=== PATIENT | female | born 1975 | race Caucasian/White ===

== ENCOUNTER 2017-10-28 19:41 | Emergency (ER) | payer BC, MEDICAID | END 2017-10-28 22:10 | disposition left against medical advice (07) | LOC: M ED 22:10 | DX: Z53.29 Procedure and treatment not carried out because of patient's decision for other reasons (principal) ==

== ENCOUNTER → 2017-10-29 | Outpatient (REF) | payer BC ==
[2017-10-29 20:40] LABS: APPEARANCE, URINE HAZY (CLEAR); BACTERIA, URINE AUTO 1+ (NEGATIVE); BILIRUBIN, URINE AUTO NEGATIVE (NEGATIVE); BLOOD, URINE BLOOD 2+ (NEGATIVE); COLOR, URINE YELLOW (YELLOW); GLUCOSE, URINE (UA) AUTO NEGATIVE (NEGATIVE); KETONE, URINE AUTO NEGATIVE (NEGATIVE); LEUKOCYTE ESTERASE, URINE AUTO NEGATIVE (NEGATIVE); MUCUS, URINE SMALL (NEGATIVE); NITRITE, URINE AUTO NEGATIVE (NEGATIVE); PROTEIN, URINE AUTO NEGATIVE (NEGATIVE); RBC, URINE AUTO 1 /HPF (0-3); SPECIFIC GRAVITY URINE AUTO 1.012 (1.002-1.035); SQUAMOUS EPITHELIAL CELL UR AU 1 /HPF (0-6); WBC, URINE AUTO 1 /HPF (0-3)
== END ==
LOC: M LAB REF 09:46
DX: N39.0 Urinary tract infection, site not specified (principal)
CPT/HCPCS: 81001

== ENCOUNTER → 2017-12-28 | Outpatient (REF) | payer BC ==
[2017-12-28 17:15] LABS: INFLUENZA A AMPLIFICATION NEGATIVE (NEGATIVE); INFLUENZA B AMPLIFICATION NEGATIVE (NEGATIVE)
== END ==
LOC: M LAB REF 16:26
DX: J11.1 Influenza due to unidentified influenza virus with other respiratory manifestations (principal)
CPT/HCPCS: 87502

== ENCOUNTER 2018-08-01 11:41 | Emergency (ER) | payer SELFPAY, BC ==
[2018-08-01] MEDS: BACLOFEN 10 MG TAB PO (15:13)
[2018-08-01] MEDS: PERCOCET 5MG/325MG TAB PO (15:13)
== END 2018-08-01 18:15 | disposition home or self-care (01) ==
LOC: M ED 11:41
DX: M50.221 Other cervical disc displacement at C4-C5 level (principal); M50.222 Other cervical disc displacement at C5-C6 level; M50.223 Other cervical disc displacement at C6-C7 level; M54.12 Radiculopathy, cervical region; R51 Headache; F41.9 Anxiety disorder, unspecified; F17.210 Nicotine dependence, cigarettes, uncomplicated
CPT/HCPCS: 72141

== ENCOUNTER → 2020-09-06 | Outpatient (REF) | payer OTHER ==
[~2020-09-06] MED LIST: BACL10TA2 PO; PEPC1TAB5; PERC5TAB12 PO; PRIL20TA2 PO; SERT-138
[2020-09-06 16:50] LABS: APPEARANCE, URINE MANUAL CLEAR (CLEAR); COLOR, URINE MANUAL COLORLESS (YELLOW)
[2020-09-06 16:52] LABS: BILIRUBIN, URINE MANUAL NEGATIVE (NEGATIVE); BLOOD URINE MANUAL POSITIVE (NEGATIVE); GLUCOSE, URINE (UA) MANUAL NEGATIVE (NEGATIVE); KETONE, URINE MANUAL NEGATIVE (NEGATIVE); LEUKOCYTE ESTERASE, URINE MAN TRACE (NEGATIVE); NITRITE, URINE MANUAL NEGATIVE (NEGATIVE); PROTEIN, URINE MANUAL NEGATIVE (NEGATIVE); SPECIFIC GRAVITY,URINE MANUAL 1.005 (1.002-1.035); UROBILINOGEN, URINE MANUAL NORMAL (NORMAL)
[2020-09-06 19:31] LABS: BACTERIA, URINE LARGE AMOUNT; RBC, URINE 20-30 /hpf (0-3); SQUAMOUS EPITHELIAL CELL URINE LARGE AMOUNT /hpf (SMALL AMT)
[2020-09-06 19:33] LABS: HYALINE CAST, URINE NONE SEEN /lpf (0-1); YEAST, URINE SMALL AMOUNT
== END ==
LOC: M LAB REF 16:03
PROVIDERS: ATTEND Obstetrics & Gynecology
DX: N39.0 Urinary tract infection, site not specified (principal)

== ENCOUNTER 2020-12-31 10:13 | Emergency (ER) | payer OTHER ==
[~2020-12-31] VITALS: Ht 157.5 cm; Wt 96.4 kg
[2020-12-31] MEDS ORDERED: SERT25TA21 (10:27)
[2020-12-31] MEDS ORDERED: ERYT5OIN25 (10:27)
[2020-12-31] MEDS ORDERED: GABA-282 (10:27)
[2020-12-31] MEDS ORDERED: NS 1,000 ML IV ONE (10:50)
[2020-12-31] MEDS ORDERED: ACETAMINOPHEN 500 MG TAB PO ONE (10:50)
[2020-12-31 11:40] VITALS: O2SAT 100
[2020-12-31 11:43] LABS: BASO % 0.2 % (0.0-1.0); EOS # 0.2 10^3/uL (0.0-0.5); EOS % 1.6 % (0.0-3.0); HEMATOCRIT 32.3 % (36.0-47.0); HEMOGLOBIN 11.3 g/dl (12.0-15.5); LYMPH # 1.9 10^3/uL (1.5-5.0); LYMPH % 20.7 % (24.0-44.0); MEAN CORPUSCULAR HEMOGLOBIN 40.4 pg (27.0-33.0); MONO # 0.5 10^3/uL (0.0-0.8); MONO % 5.9 % (2.0-8.0); NEUTROPHILS # 6.5 10^3/uL (1.5-8.5); NEUTROPHILS % 70.8 % (36.0-66.0); PLATELET COUNT, AUTOMATED 318 10^3/uL (150-450); WHITE BLOOD COUNT 9.2 10^3/uL (4.0-10.0)
--- NOTE | 2020-12-31 12:07 | ECGEPIP ---
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
[2020-12-31 12:15] LABS: HCG, SERUM QUALITATIVE NEGATIVE (NEGATIVE)
[2020-12-31 12:16] LABS: MEAN CORPUSCULAR VOLUME 115.4 fl (80.0-96.0)
[2020-12-31 12:19] LABS: PLATELET ESTIMATE NORMAL (NORMAL)
[2020-12-31 12:20] LABS: HYPOCHROMASIA 1+
[2020-12-31 12:33] LABS: ALBUMIN 3.3 GM/DL (3.2-5.2); ALT/SGPT 68 U/L (12-78); AMYLASE 15 U/L (25-115); BILIRUBIN,DIRECT 0.1 MG/DL (0.0-0.2); BILIRUBIN,TOTAL 0.6 MG/DL (0.2-1.0); BLOOD UREA NITROGEN 4 MG/DL (7-18); CALCIUM LEVEL 8.8 MG/DL (8.5-10.1); CARBON DIOXIDE LEVEL 26 MEQ/L (21-32); CHLORIDE LEVEL 101 MEQ/L (98-107); CK-MB VALUE MASS 13.1 NG/ML (<3.6); CPK CREATINE PHOSPHOKINASE 2115 U/L (26-192); FREE T4 1.18 NG/DL (0.76-1.46); GLOMERULAR FILTRATION RATE > 60.0 (>58); GLUCOSE, FASTING 83 MG/DL (70-100); LIPASE 35 U/L (73-393); MAGNESIUM LEVEL 2.1 MG/DL (1.8-2.4); MB/CK RELATIVE INDEX 0.62 (< OR =4); POTASSIUM SERUM 2.8 MEQ/L (3.5-5.1); SODIUM LEVEL 135 MEQ/L (136-145); TOTAL PROTEIN 6.4 GM/DL (6.4-8.2); TROPONIN I 0.02 NG/ML (< 0.10)
[2020-12-31] MEDS ORDERED: KCL 10MEQ/100ML SWI (KRUN) 10 MEQ in IV 1 EA IV ONE (12:35)
--- NOTE | 2020-12-31 13:16 | REP ---
INDICATION: Abdominal Pain COMPARISON: None. TECHNIQUE: Upright view of the chest with supine and upright views of the abdomen and pelvis. FINDINGS: Frontal upright view of the chest demonstrates no acute cardiopulmonary process or free air below the diaphragm to suspect pneumoperitoneum. Supine and upright views of the abdomen and pelvis demonstrate nonspecific bowel gas pattern without obstruction or perforation. Prior cholecystectomy. No organomegaly. No abnormal calcifications. Skeletal structures normal for age. IMPRESSION: Nonspecific bowel gas pattern. <Electronically signed by Martin Hunter > 12/31/20 [id number]
[2020-12-31] MEDS ORDERED: POTASSIUM CHLORIDE 10 MEQ SR TABLET PO ONE (14:25)
[2020-12-31 14:31] LABS: FERRITIN 65 NG/ML (8-252); FOLATE 4.1 NG/ML (>5.4); IRON (FE) 106 UG/DL (50-170); TOTAL IRON BINDING CAPACITY 221 UG/DL (250-450); VITAMIN B12 LEVEL 213 PG/ML (247-911)
[2020-12-31] MEDS ORDERED: GI COCKTAIL 50ML BTL(HYOSCYAMINE/MAALOX/LIDOCAINE VISCOUS)(1:3:1) PO ONE (15:05)
[2020-12-31] MEDS ORDERED: CYANOCOBALAMIN 500 MCG TAB PO STA (15:27)
[2020-12-31 16:17] LABS: AMPHETAMINES LEVEL URINE NEGATIVE (NEGATIVE); BARBITURATES URINE NEGATIVE (NEGATIVE); BENZODIAZEPINES URINE NEGATIVE (NEGATIVE); CANNABINOIDS URINE NEGATIVE (NEGATIVE); COCAINE METABOLITE URINE NEGATIVE (NEGATIVE); METHADONE URINE NEGATIVE (NEGATIVE); OPIATES URINE NEGATIVE (NEGATIVE); PHENCYCLIDINE URINE NEGATIVE (NEGATIVE)
[2020-12-31] MEDS ORDERED: OMEP40CA97 PO (16:17)
[2020-12-31 16:26] VITALS: BP 123/79
== END 2020-12-31 16:45 | disposition home or self-care (01) ==
LOC: M ED 10:13
DX: D64.9 Anemia, unspecified (principal); E87.6 Hypokalemia; E53.9 Vitamin B deficiency, unspecified; R79.89 Other specified abnormal findings of blood chemistry; K21.9 Gastro-esophageal reflux disease without esophagitis; F41.9 Anxiety disorder, unspecified; Z79.899 Other long term (current) drug therapy
CPT/HCPCS: 74021; 80048; 80076; 80307; 81001; 82150; 82550; 82553; 82607; 82728; 82746; 83550; 83690; 83735; 84439; 84443; 84703; 85025; 85379; 87804; 87880; 93005; 96361; 96365; 99285; U0002

== ENCOUNTER → 2021-03-03 | Outpatient (REF) | payer OTHER ==
[~2021-03-03] MED LIST changes: +ERYT5OIN25; +GABA-282; +OMEP40CA97 PO; +SERT25TA21
[2021-03-03 12:03] LABS: BASO % 0.3 % (0.0-1.0); EOS # 0.3 10^3/uL (0.0-0.5); EOS % 2.5 % (0.0-3.0); HEMOGLOBIN 12.4 g/dl (12.0-15.5); LYMPH # 3.3 10^3/uL (1.5-5.0); LYMPH % 31.4 % (24.0-44.0); MEAN CORPUSCULAR HEMOGLOBIN 34.6 pg (27.0-33.0); MEAN CORPUSCULAR HGB CONC 32.6 g/dl (32.0-36.5); MEAN CORPUSCULAR VOLUME 106.1 fl (80.0-96.0); MONO # 0.7 10^3/uL (0.0-0.8); MONO % 6.7 % (2.0-8.0); NEUTROPHILS # 6.1 10^3/uL (1.5-8.5); NEUTROPHILS % 58.3 % (36.0-66.0); PLATELET COUNT, AUTOMATED 262 10^3/uL (150-450); RED BLOOD COUNT 3.58 10^6/uL (4.00-5.40); WHITE BLOOD COUNT 10.5 10^3/uL (4.0-10.0)
[2021-03-03 12:27] LABS: HEMOGLOBIN A1c 4.3 %
[2021-03-03 13:01] LABS: ALT/SGPT 17 U/L (12-78); BILIRUBIN,TOTAL 0.4 MG/DL (0.2-1.0); BLOOD UREA NITROGEN 5 MG/DL (7-18); CALCIUM LEVEL 9.1 MG/DL (8.5-10.1); CARBON DIOXIDE LEVEL 26 MEQ/L (21-32); CHLORIDE LEVEL 106 MEQ/L (98-107); CHOLESTEROL LEVEL 204 MG/DL (<200); CHOLESTEROL RISK RATIO 3.777 (<5); CREATININE FOR GFR 0.64 MG/DL (0.55-1.30); FERRITIN 34 NG/ML (8-252); FOLATE 3.1 NG/ML; GLOMERULAR FILTRATION RATE > 60.0 (>58); GLUCOSE, FASTING 82 MG/DL (70-100); HDL CHOLESTEROL 54 MG/DL (>40); IRON (FE) 85 UG/DL (50-170); LDL CHOLESTEROL 121 MG/DL (<100); NON-HDL-C 150 MG/DL; PERCENT SATURATION 33.9 % (13.2-45.0); POTASSIUM SERUM 3.6 MEQ/L (3.5-5.1); SODIUM LEVEL 141 MEQ/L (136-145); TOTAL 25(OH) VITAMIN D 7.1 NG/ML (30.0-100.0); TOTAL IRON BINDING CAPACITY 251 UG/DL (250-450); TOTAL PROTEIN 6.1 GM/DL (6.4-8.2); TRIGLYCERIDES LEVEL 143 MG/DL (<150); VITAMIN B12 LEVEL 500 PG/ML
== END ==
LOC: M LAB REF 11:39
PROVIDERS: ATTEND Nurse Practitioner Family
DX: G89.29 Other chronic pain (principal); F41.9 Anxiety disorder, unspecified; R20.2 Paresthesia of skin; E66.9 Obesity, unspecified

== ENCOUNTER → 2021-05-10 | Outpatient (CLI) | payer OTHER ==
[~2021-05-10] MED LIST changes: +OMEP40CA4 PO; -OMEP40CA97 PO
[2021-05-10 16:11] LABS: RHEUMATOID FACTOR QUANT < 10.0 IU/ML (<15.0); TOTAL PROTEIN 6.1 GM/DL (6.4-8.2)
[2021-05-12 09:44] LABS: VITAMIN B12 LEVEL 282 PG/ML
[2021-05-12 09:45] LABS: FOLATE 3.6 NG/ML
[2021-05-13 11:10] LABS: ALBUMIN % 55.8 % (55.8-66.1); ALPHA-1-GLOBULIN % 5.5 % (2.9-4.9); ALPHA-1-GLOBULINS 0.34 GM/DL (0.17-0.41); ALPHA-2-GLOBULINS 0.77 GM/DL (0.42-0.99); ALPHA-2-GLOBULINS % 12.6 % (7.1-11.8); BETA-1-GLOBULINS 0.33 GM/DL (0.28-0.60); BETA-1-GLOBULINS % 5.4 % (4.7-7.2); BETA-2-GLOBULINS 0.39 GM/DL (0.19-0.55); BETA-2-GLOBULINS % 6.4 % (3.2-6.5); GAMMA GLOBULIN % 14.3 % (11.1-18.8); GAMMA GLOBULINS 0.87 GM/DL (0.65-1.58)
== END ==
LOC: M LAB 13:49
PROVIDERS: ATTEND Psychiatry & Neurology Neurology
DX: G62.9 Polyneuropathy, unspecified (principal); R53.1 Weakness

== ENCOUNTER → 2021-05-10 | Outpatient (CLI) | payer OTHER ==
--- NOTE | 2021-05-11 00:06 | REPVR ---
PROCEDURE INFORMATION: Exam: MR Lumbar Spine Without Contrast Exam date and time: 05/10/2021 2:43 PM Age: 46 years old Clinical indication: Other: Lumbar radiculopathy; Additional info: Lumbar radiculopathy / cervical radiculopathy / labs 2nd TECHNIQUE: Imaging protocol: Multiplanar magnetic resonance images of the lumbar spine without intravenous contrast. COMPARISON: CR Abdomen,Flat Upright,PA CHEST 12/31/2020 12:45 PM FINDINGS: Vertebral body heights are maintained. No abnormal marrow signal. No cord compression. No abnormal cord signal. Conus medullaris terminates at the L1 level. Disc space heights are preserved. Multilevel mild Schmorl's node phenomena. No significant areas of canal or foraminal narrowing. Paravertebral soft tissues are unremarkable. IMPRESSION: No acute findings in the lumbar spine. Electronically signed by: Mark Mark On 05/11/2021 00:06:13 AM
--- NOTE | 2021-05-11 00:11 | REPVR ---
PROCEDURE INFORMATION: Exam: MR Cervical Spine Without Contrast Exam date and time: 05/10/2021 2:43 PM Age: 46 years old Clinical indication: Other: Cervical radiculopathy; Additional info: Lumbar radiculopathy / cervical radiculopathy / labs 2nd TECHNIQUE: Imaging protocol: Multiplanar magnetic resonance images of the cervical spine without contrast. COMPARISON: MRI-Spine,Cervical without con 08/01/2018 3:46 PM FINDINGS: Large T2 hyperintense midline cystic mass measuring approximately 3.2 x 1.8 x 1 cm inferior to the base of the tongue and extending anterior to the larynx. Cervical vertebral body heights are intact. Straightening of the cervical lordosis. The dens is intact. No abnormal marrow signal. No cord compression, expansion, or abnormal cord signal. Visualized structures of the posterior fossa are unremarkable. Soft tissues are unremarkable. C2-C3: No significant canal or foraminal narrowing. C3-C4: Small posterior disc bulge causing mild canal narrowing and mild left foraminal narrowing. C4-C5: Left paracentral disc protrusion and uncovertebral spurring cause mild canal narrowing and moderate left foraminal narrowing. C5-C6: Right paracentral disc protrusion causing focal moderate canal narrowing. Along with uncovertebral spurring there is mild left foraminal narrowing. C6-C7: Posterior disc protrusion and uncovertebral spurring cause mild canal narrowing with moderate left and mild right foraminal narrowing. C7-T1: No significant canal or foraminal narrowing. IMPRESSION: 1. Multilevel spondylotic changes of the cervical spine, as detailed above. 2. Large T2 hyperintense midline cystic mass measuring approximately 3.2 x 1.8 x 1 cm inferior to the base of the tongue and extending anterior to the larynx. 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 Recommend ENT surgical consultation and further evaluation with neck ultrasound. Electronically signed by: Mark Mark On 05/11/2021 00:11:01 AM
== END ==
LOC: M RAD 13:37 → M LAB 13:37
PROVIDERS: ATTEND Pain Medicine Interventional Pain Medicine
DX: M54.12 Radiculopathy, cervical region (principal); M54.16 Radiculopathy, lumbar region; G62.9 Polyneuropathy, unspecified; R53.1 Weakness

== ENCOUNTER → 2021-05-28 | Outpatient (REF) | payer OTHER ==
[2021-05-28 20:39] LABS: APPEARANCE, URINE HAZY (CLEAR); BACTERIA, URINE AUTO NEGATIVE (NEGATIVE); BILIRUBIN, URINE AUTO NEGATIVE (NEGATIVE); BLOOD, URINE BLOOD 2+ (NEGATIVE); COLOR, URINE YELLOW (YELLOW); GLUCOSE, URINE (UA) AUTO NEGATIVE (NEGATIVE); KETONE, URINE AUTO NEGATIVE (NEGATIVE); LEUKOCYTE ESTERASE, URINE AUTO NEGATIVE (NEGATIVE); NITRITE, URINE AUTO NEGATIVE (NEGATIVE); PROTEIN, URINE AUTO NEGATIVE (NEGATIVE); RBC, URINE AUTO 2 /HPF (0-3); SPECIFIC GRAVITY URINE AUTO 1.005 (1.002-1.035); SQUAMOUS EPITHELIAL CELL UR AU 4 /HPF (0-6); UROBILINOGEN, URINE AUTO 0.2 mg/dL (0.0-2.0); WBC, URINE AUTO 3 /HPF (0-3)
== END ==
LOC: M LAB REF 19:48
PROVIDERS: ATTEND Nurse Practitioner Family
DX: R30.0 Dysuria (principal)

== ENCOUNTER → 2021-06-19 | Outpatient (CLI) | payer OTHER ==
[~2021-06-19] MED LIST changes: +ISOVUE-370 76% 100ML VIAL As Ordered ONE
--- NOTE | 2021-06-19 15:00 | REPVR ---
PROCEDURE INFORMATION: Exam: CT Neck With Contrast Exam date and time: 06/19/2021 12:43 PM Age: 46 years old Clinical indication: Abnormal findings; Abnormal radiologic study of neck; Additional info: Swelling, mass TECHNIQUE: Imaging protocol: Computed tomography images of the neck with contrast. Radiation optimization: All CT scans at this facility use at least one of these dose optimization techniques: automated exposure control; mA and/or kV adjustment per patient size (includes targeted exams where dose is matched to clinical indication); or iterative reconstruction. Contrast material: ISOVUE 370; Contrast volume: 75 ml; Contrast route: INTRAVENOUS (IV); COMPARISON: MRI-Spine,Cervical without con 05/10/2021 2:08 PM FINDINGS: Brain: Visualized brain is within normal limits. Orbital cavity: The orbits are intact. Mastoid air cells: The mastoids are well aerated. Paranasal sinuses: No air-fluid levels in the paranasal sinuses. Polypoid thickening right maxillary sinus. Nasal cavity: Nasal ornament. Nasopharynx: Unremarkable. Dental: There are multiple broken, absent common carious teeth with periapical lucencies most pronounced in the right mandible. Oropharynx: Again noted is the mass extending from the floor of mouth caudad and anterior to the trachea along the midline measuring 32 x 12 mm. Again, thyroglossal duct cyst is favored. One might consider obtaining histology/surgical excision. Hypopharynx: Unremarkable. Larynx: Unremarkable. Normal epiglottis. Retropharyngeal space: Unremarkable. Submandibular/Parotid glands: Normal. Glands are normal in size. Thyroid: Homogeneous thyroid. Lymph nodes: No confluent lymphadenopathy. Trachea: Visualized trachea is unremarkable. Lungs: The included lungs are clear. Esophagus: Mildly patulous esophagus. Bones/joints: Degenerative changes along the spine without acute fracture. Vasculature: No subcutaneous lesion. 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 Electronically signed by: Kirill Jasmine On 06/19/2021 15:00:20 PM
== END ==
LOC: M RAD 12:12
PROVIDERS: ATTEND Otolaryngology
DX: R22.1 Localized swelling, mass and lump, neck (principal)
CPT/HCPCS: 70491; Q9967

== ENCOUNTER → 2022-03-24 | Outpatient (CLI) | payer OTHER ==
[~2022-03-24] MED LIST changes: -ISOVUE-370 76% 100ML VIAL As Ordered ONE
== END ==
LOC: M RAD 14:17
PROVIDERS: ATTEND Pediatrics
DX: R05.1 Acute cough (principal)

== ENCOUNTER → 2022-03-24 | Outpatient (CLI) | payer OTHER ==
[2022-03-24 16:45] LABS: HEMATOCRIT 34.9 % (36.0-47.0); MEAN CORPUSCULAR HEMOGLOBIN 27.2 pg (27.0-33.0); MEAN CORPUSCULAR HGB CONC 31.5 g/dl (32.0-36.5); MEAN CORPUSCULAR VOLUME 86.4 fl (80.0-96.0); PLATELET COUNT, AUTOMATED 203 10^3/uL (150-450); RED BLOOD COUNT 4.04 10^6/uL (4.00-5.40); WHITE BLOOD COUNT 5.4 10^3/uL (4.0-10.0)
[2022-03-24 17:11] LABS: ALT/SGPT 16 U/L (12-78); BILIRUBIN,TOTAL 0.3 MG/DL (0.2-1.0); BLOOD UREA NITROGEN 3 MG/DL (7-18); C REACTIVE PROTEIN QUANTITATIV 0.62 MG/DL (0.00-0.30); CALCIUM LEVEL 8.4 MG/DL (8.5-10.1); CARBON DIOXIDE LEVEL 32 MEQ/L (21-32); CHLORIDE LEVEL 105 MEQ/L (98-107); CREATININE FOR GFR 0.81 MG/DL (0.55-1.30); GLOMERULAR FILTRATION RATE > 60.0 (>58); GLUCOSE, FASTING 81 MG/DL (70-100); POTASSIUM SERUM 3.7 MEQ/L (3.5-5.1); SODIUM LEVEL 138 MEQ/L (136-145); TOTAL PROTEIN 6.3 GM/DL (6.4-8.2)
[2022-03-24 17:36] LABS: BASOPHILS 1 % (0-1); EOSINOPHILS 3 % (0-3); LYMPHOCYTES 46 % (16-44); MONOCYTES 4 % (0-5); NEUTROPHILS 46 % (28-66); PLATELET ESTIMATE NORMAL (NORMAL)
[2022-03-24 18:41] LABS: ERYTHROCYTE SEDIMENTATION RATE 25 mm/hr (0-20)
[2022-03-27 00:07] LABS: CYCLIC CITRULLINATED PEPTIDE 4 units (0-19); SSA SJOGRENS A <0.2 AI (0.0-0.9); SSB SJOGRENS B <0.2 AI (0.0-0.9)
== END ==
LOC: M RAD 14:07
PROVIDERS: ATTEND Internal Medicine Rheumatology
DX: M35.3 Polymyalgia rheumatica (principal); H04.123 Dry eye syndrome of bilateral lacrimal glands; L59.0 Erythema ab igne [dermatitis ab igne]; M19.041 Primary osteoarthritis, right hand; M19.042 Primary osteoarthritis, left hand

== ENCOUNTER → 2022-09-01 | Outpatient (REF) | payer OTHER ==
[2022-09-01 13:38] LABS: BASO % 0.1 % (0.0-1.0); EOS # 0.1 10^3/uL (0.0-0.5); EOS % 0.7 % (0.0-3.0); HEMATOCRIT 33.3 % (36.0-47.0); HEMOGLOBIN 10.6 g/dl (12.0-15.5); LYMPH # 2.1 10^3/uL (1.5-5.0); LYMPH % 30.6 % (24.0-44.0); MEAN CORPUSCULAR HGB CONC 31.8 g/dl (32.0-36.5); MEAN CORPUSCULAR VOLUME 91.2 fl (80.0-96.0); MONO # 0.4 10^3/uL (0.0-0.8); MONO % 5.5 % (2.0-8.0); NEUTROPHILS # 4.3 10^3/uL (1.5-8.5); NEUTROPHILS % 62.5 % (36.0-66.0); PLATELET COUNT, AUTOMATED 227 10^3/uL (150-450); RED BLOOD COUNT 3.65 10^6/uL (4.00-5.40); WHITE BLOOD COUNT 6.9 10^3/uL (4.0-10.0)
[2022-09-01 14:45] LABS: ALT/SGPT 18 U/L (12-78); BILIRUBIN,TOTAL 0.3 MG/DL (0.2-1.0); BLOOD UREA NITROGEN 3 MG/DL (7-18); CALCIUM LEVEL 8.2 MG/DL (8.5-10.1); CARBON DIOXIDE LEVEL 38 MEQ/L (21-32); CHLORIDE LEVEL 96 MEQ/L (98-107); GLOMERULAR FILTRATION RATE > 60.0 (>58); GLUCOSE, FASTING 95 MG/DL (70-100); POTASSIUM SERUM 2.5 MEQ/L (3.5-5.1); SODIUM LEVEL 139 MEQ/L (136-145); TOTAL PROTEIN 5.2 GM/DL (6.4-8.2)
== END ==
LOC: M SHH 12:36
PROVIDERS: ATTEND Pediatrics
DX: M79.7 Fibromyalgia (principal); M62.82 Rhabdomyolysis

== ENCOUNTER 2022-09-04 14:35 | Observation (INO) | payer OTHER ==
[~2022-09-04] VITALS: Ht 157.5 cm; Wt 113.2 kg
[2022-09-04 16:09] LABS: BASO % 0.2 % (0.0-1.0); EOS % 0.4 % (0.0-3.0); HEMOGLOBIN 11.8 g/dl (12.0-15.5); LYMPH # 1.6 10^3/uL (1.5-5.0); LYMPH % 15.7 % (24.0-44.0); MEAN CORPUSCULAR HEMOGLOBIN 29.1 pg (27.0-33.0); MEAN CORPUSCULAR HGB CONC 31.9 g/dl (32.0-36.5); MEAN CORPUSCULAR VOLUME 91.1 fl (80.0-96.0); MONO # 0.6 10^3/uL (0.0-0.8); NEUTROPHILS # 7.8 10^3/uL (1.5-8.5); NEUTROPHILS % 77.3 % (36.0-66.0); PLATELET COUNT, AUTOMATED 236 10^3/uL (150-450); RED BLOOD COUNT 4.06 10^6/uL (4.00-5.40); WHITE BLOOD COUNT 10.1 10^3/uL (4.0-10.0)
[2022-09-04 16:22] LABS: HCG, SERUM QUALITATIVE NEGATIVE (NEGATIVE)
[2022-09-04 16:42] LABS: ALBUMIN 2.2 GM/DL (3.2-5.2); ALT/SGPT 44 U/L (12-78); BILIRUBIN,DIRECT 0.2 MG/DL (0.0-0.2); BILIRUBIN,TOTAL 0.5 MG/DL (0.2-1.0); BLOOD UREA NITROGEN 3 MG/DL (7-18); CALCIUM LEVEL 8.8 MG/DL (8.5-10.1); CARBON DIOXIDE LEVEL 38 MEQ/L (21-32); CHLORIDE LEVEL 94 MEQ/L (98-107); CREATININE FOR GFR 0.61 MG/DL (0.55-1.30); GLOMERULAR FILTRATION RATE > 60.0 (>58); GLUCOSE, FASTING 109 MG/DL (70-100); LIPASE 31 U/L (73-393); POTASSIUM SERUM 2.7 MEQ/L (3.5-5.1); SODIUM LEVEL 136 MEQ/L (136-145); TOTAL PROTEIN 5.8 GM/DL (6.4-8.2)
[2022-09-04 18:46] LABS: MAGNESIUM LEVEL 1.7 MG/DL (1.8-2.4)
[2022-09-04] MEDS ORDERED: POTASSIUM CHLORIDE 10MEQ SR TABLET PO ONE (18:50)
[2022-09-04] MEDS ORDERED: KCL 10MEQ/100ML SWI (KRUN) 10 MEQ in IV 1 EA IV ONE ×2 (18:50→20:40)
[2022-09-04] MEDS ORDERED: NS 1,000 ML IV ONE ×2 (18:50→20:30)
[2022-09-04] MEDS ORDERED: ISOVUE-370 76% 100ML VIAL As Ordered ONE (19:25)
[2022-09-04 20:05] LABS: RSV AMPLIFICATION NEGATIVE (NEGATIVE)
[2022-09-04 20:24] LABS: CK-MB VALUE MASS 5.3 NG/ML (<3.6); MB/CK RELATIVE INDEX 0.33 (< OR =4)
[2022-09-04] MEDS ORDERED: MAG SULF 1GM/100ML (MAG RUN) 1 GM in IV 1 EA IV ONE (21:40)
[2022-09-04] MEDS ORDERED: ACETAMINOPHEN TAB 650MG DOSE (2X325MG) PO PRN (21:40)
[2022-09-04] MEDS ORDERED: CEPACOL LOZENGE PO PRN (21:40)
[2022-09-04] MEDS ORDERED: PREG75CA2 PO (21:57)
[2022-09-04] MEDS ORDERED: FLUTISP NARES (21:57)
[2022-09-04] MEDS ORDERED: TRAZ-252 PO (21:57)
[2022-09-04] MEDS ORDERED: DULO1CAP6 PO (21:57)
[2022-09-04] MEDS ORDERED: OMEP-173 PO (21:57)
[2022-09-04] MEDS ORDERED: POTA1TAB23 PO (21:57)
[2022-09-04] MEDS ORDERED: TIZA10TA PO (21:57)
[2022-09-04] MEDS ORDERED: HOME MED LIST COMPLETE! XX SCH (22:00)
[2022-09-04 22:33] LABS: INR 1.14; PROTHROMBIN TIME 14.9 SECONDS (12.5-14.5)
[2022-09-04 22:34] LABS: PARTIAL THROMBOPLASTIN TIME 29.9 SECONDS (24.8-34.2)
[2022-09-04] MEDS: POTASSIUM CHLORIDE INJ 20 MEQ in LR 1,000 ML IV SCH (23:56)
[2022-09-05] MEDS: POTASSIUM CHLORIDE INJ 20 MEQ in LR 1,000 ML IV SCH (05:38)
[2022-09-05 06:53] LABS: HEMATOCRIT 34.1 % (36.0-47.0); HEMOGLOBIN 10.7 g/dl (12.0-15.5); MEAN CORPUSCULAR HEMOGLOBIN 28.7 pg (27.0-33.0); MEAN CORPUSCULAR HGB CONC 31.4 g/dl (32.0-36.5); MEAN CORPUSCULAR VOLUME 91.4 fl (80.0-96.0); PLATELET COUNT, AUTOMATED 227 10^3/uL (150-450); RED BLOOD COUNT 3.73 10^6/uL (4.00-5.40); WHITE BLOOD COUNT 6.6 10^3/uL (4.0-10.0)
[2022-09-05 07:15] LABS: BLOOD UREA NITROGEN 2 MG/DL (7-18); CALCIUM LEVEL 8.1 MG/DL (8.5-10.1); CARBON DIOXIDE LEVEL 35 MEQ/L (21-32); CHLORIDE LEVEL 102 MEQ/L (98-107); CREATININE FOR GFR 0.44 MG/DL (0.55-1.30); GLOMERULAR FILTRATION RATE > 60.0 (>58); GLUCOSE, FASTING 86 MG/DL (70-100); MAGNESIUM LEVEL 1.9 MG/DL (1.8-2.4); POTASSIUM SERUM 3.2 MEQ/L (3.5-5.1); SODIUM LEVEL 140 MEQ/L (136-145)
[2022-09-05 09:00] VITALS: BP 130/78
[2022-09-05] MEDS: tiZANidine 4 MG TAB PO SCH ×3 (09:15→21:15)
[2022-09-05] MEDS: POTASSIUM CHLORIDE 10MEQ SR TABLET PO SCH (09:15)
[2022-09-05] MEDS: OMEPRAZOLE 20MG CAP PO SCH ×2 (09:15→21:15)
[2022-09-05] MEDS: PREGABALIN 75 MG CAP(LYRICA) PO SCH ×2 (09:16→21:15)
[2022-09-05] MEDS: CIPROFLOXACIN HC OTIC SUSPENSION AD SCH ×2 (09:16→21:14)
[2022-09-05] MEDS: ENOXAPARIN 40MG/0.4ML SYRINGE (J1650 PER 10MG) SC SCH (09:16)
[2022-09-05] MEDS: FLUTICASONE PROP 0.05% NASAL SPRAY 16 GM (FLONASE) NARES SCH (10:11)
[2022-09-05 14:00] VITALS: BP 111/54
[2022-09-05 14:52] LABS: BLOOD UREA NITROGEN 3 MG/DL (7-18); CALCIUM LEVEL 8.2 MG/DL (8.5-10.1); CARBON DIOXIDE LEVEL 36 MEQ/L (21-32); CHLORIDE LEVEL 102 MEQ/L (98-107); CREATININE FOR GFR 0.48 MG/DL (0.55-1.30); GLOMERULAR FILTRATION RATE > 60.0 (>58); GLUCOSE, FASTING 96 MG/DL (70-100); POTASSIUM SERUM 3.2 MEQ/L (3.5-5.1); SODIUM LEVEL 141 MEQ/L (136-145)
[2022-09-05] MEDS ORDERED: POTASSIUM CHLORIDE 10MEQ SR TABLET PO ONE (15:10)
[2022-09-05 15:15] VITALS: BP 113/67
[2022-09-05] MEDS ORDERED: NS 1,000 ML IV SCH (17:10)
[2022-09-05] MEDS ORDERED: AZITHROMYCIN 250MG TABLET PO ONE (18:00)
[2022-09-05] MEDS ORDERED: GI COCKTAIL 50ML BTL(HYOSCYAMINE/MAALOX/LIDOCAINE VISCOUS)(1:3:1) PO ONE (18:00)
[2022-09-05] MEDS: LACTOBACILLUS ACIDOPHILUS CAP (BACID) PO SCH (18:35)
[2022-09-05] MEDS: VANCOMYCIN ORAL SOL 250MG/5ML ORAL SYRINGE PO SCH (18:50)
[2022-09-05] MEDS ORDERED: DULoxetine 30MG CAPSULE (CYMBALTA) PO SCH (21:00)
[2022-09-05] MEDS ORDERED: traZODone 50 MG TAB PO SCH (21:00)
[2022-09-05 22:00] VITALS: BP 129/75
[2022-09-06] MEDS: VANCOMYCIN ORAL SOL 250MG/5ML ORAL SYRINGE PO SCH ×3 (00:02→13:11)
[2022-09-06 06:00] VITALS: BP 126/73
[2022-09-06 06:06] LABS: BASO % 0.2 % (0.0-1.0); EOS # 0.1 10^3/uL (0.0-0.5); EOS % 1.2 % (0.0-3.0); HEMATOCRIT 32.1 % (36.0-47.0); HEMOGLOBIN 10.1 g/dl (12.0-15.5); LYMPH % 40.4 % (24.0-44.0); MEAN CORPUSCULAR HEMOGLOBIN 29.5 pg (27.0-33.0); MEAN CORPUSCULAR HGB CONC 31.5 g/dl (32.0-36.5); MEAN CORPUSCULAR VOLUME 93.9 fl (80.0-96.0); MONO # 0.4 10^3/uL (0.0-0.8); MONO % 7.6 % (2.0-8.0); NEUTROPHILS # 2.4 10^3/uL (1.5-8.5); PLATELET COUNT, AUTOMATED 220 10^3/uL (150-450); RED BLOOD COUNT 3.42 10^6/uL (4.00-5.40); WHITE BLOOD COUNT 4.9 10^3/uL (4.0-10.0)
[2022-09-06 06:41] LABS: ALBUMIN 1.9 GM/DL (3.2-5.2); ALT/SGPT 39 U/L (12-78); BILIRUBIN,TOTAL 0.3 MG/DL (0.2-1.0); BLOOD UREA NITROGEN 3 MG/DL (7-18); CALCIUM LEVEL 8.1 MG/DL (8.5-10.1); CARBON DIOXIDE LEVEL 33 MEQ/L (21-32); CHLORIDE LEVEL 105 MEQ/L (98-107); CREATININE FOR GFR 0.48 MG/DL (0.55-1.30); GLOMERULAR FILTRATION RATE > 60.0 (>58); GLUCOSE, FASTING 97 MG/DL (70-100); MAGNESIUM LEVEL 1.8 MG/DL (1.8-2.4); POTASSIUM SERUM 3.3 MEQ/L (3.5-5.1); SODIUM LEVEL 141 MEQ/L (136-145); TOTAL PROTEIN 4.9 GM/DL (6.4-8.2)
[2022-09-06] MEDS ORDERED: KCL 10MEQ/100ML SWI (KRUN) 10 MEQ in IV 1 EA IV ONE (07:30)
[2022-09-06] MEDS ORDERED: AZITHROMYCIN 250MG TABLET PO SCH (09:00)
[2022-09-06] MEDS: LACTOBACILLUS ACIDOPHILUS CAP (BACID) PO SCH (09:46)
[2022-09-06] MEDS: ENOXAPARIN 40MG/0.4ML SYRINGE (J1650 PER 10MG) SC SCH (09:46)
[2022-09-06] MEDS: tiZANidine 4 MG TAB PO SCH (09:46)
[2022-09-06] MEDS: POTASSIUM CHLORIDE 10MEQ SR TABLET PO SCH (09:47)
[2022-09-06] MEDS: PREGABALIN 75 MG CAP(LYRICA) PO SCH (09:47)
[2022-09-06] MEDS: OMEPRAZOLE 20MG CAP PO SCH (09:47)
[2022-09-06] MEDS: FLUTICASONE PROP 0.05% NASAL SPRAY 16 GM (FLONASE) NARES SCH (09:47)
[2022-09-06] MEDS: CIPROFLOXACIN HC OTIC SUSPENSION AD SCH (09:48)
[2022-09-06] MEDS ORDERED: AZIT-12 PO (10:01)
[2022-09-06] MEDS ORDERED: RISATAB3 PO (10:01)
[2022-09-06] MEDS ORDERED: FIRV50SO PO (10:01)
[2022-09-06] MEDS ORDERED: CIPRHCOTIC AD (10:01)
[2022-09-06] MEDS ORDERED: FLUCONAZOLE 50MG TABLET PO ONE (12:00)
== END 2022-09-06 13:56 | disposition home or self-care (01) ==
LOC: M ED 14:35 → M ED INP 14:36 → M MSPAV 09-05 15:23
PROVIDERS: ADMIT Family Medicine; ATTEND Family Medicine
DX: R19.7 Diarrhea, unspecified (principal); R10.9 Unspecified abdominal pain; B96.20 Unspecified Escherichia coli [E. coli] as the cause of diseases classified elsewhere; B96.89 Other specified bacterial agents as the cause of diseases classified elsewhere; A02.9 Salmonella infection, unspecified; U07.1 COVID-19; H92.01 Otalgia, right ear; E87.6 Hypokalemia; E83.42 Hypomagnesemia; M62.82 Rhabdomyolysis; E86.0 Dehydration; K21.9 Gastro-esophageal reflux disease without esophagitis; F41.9 Anxiety disorder, unspecified; F32.A Depression, unspecified; G47.33 Obstructive sleep apnea (adult) (pediatric); Z20.828 Contact with and (suspected) exposure to other viral communicable diseases; M48.02 Spinal stenosis, cervical region; Z90.49 Acquired absence of other specified parts of digestive tract; M79.7 Fibromyalgia; Z79.899 Other long term (current) drug therapy
CPT/HCPCS: 36415; 70450; 72131; 74177; 80048; 80053; 80076; 81000; 81015; 82550; 82553; 83605; 83690; 83735; 84703; 85025; 85027; 85610; 85730; 87040; 87088; 87186; 87507; 87631; 93005; 93041; 94760; 96361; 96365; 96366; 96367; 96372; 99285; J1650; J3475

== ENCOUNTER → 2022-09-14 | Outpatient (REF) | payer OTHER ==
[~2022-09-14] MED LIST changes: +AZIT-12 PO; +CIPRHCOTIC AD; +DULO1CAP6 PO; +FIRV50SO PO; +FLUTISP NARES; +OMEP-173 PO; +POTA1TAB23 PO; +PREG75CA2 PO; +RISATAB3 PO; +TIZA10TA PO; +TRAZ-252 PO
[2022-09-14 15:47] LABS: BASO % 0.4 % (0.0-1.0); EOS # 0.1 10^3/uL (0.0-0.5); EOS % 1.2 % (0.0-3.0); HEMATOCRIT 39.7 % (36.0-47.0); HEMOGLOBIN 12.3 g/dl (12.0-15.5); LYMPH # 1.9 10^3/uL (1.5-5.0); LYMPH % 25.3 % (24.0-44.0); MEAN CORPUSCULAR HEMOGLOBIN 28.7 pg (27.0-33.0); MEAN CORPUSCULAR VOLUME 92.5 fl (80.0-96.0); MONO # 0.6 10^3/uL (0.0-0.8); MONO % 7.3 % (2.0-8.0); PLATELET COUNT, AUTOMATED 240 10^3/uL (150-450); RED BLOOD COUNT 4.29 10^6/uL (4.00-5.40); WHITE BLOOD COUNT 7.6 10^3/uL (4.0-10.0)
[2022-09-14 16:19] LABS: ALBUMIN 2.6 G/DL (3.2-5.2); ALT/SGPT 33 U/L (7.0-40); BILIRUBIN,TOTAL 0.4 MG/DL (0.3-1.2); BLOOD UREA NITROGEN < 5 MG/DL (9-23); CALCIUM LEVEL 8.1 MG/DL (8.5-10.1); CARBON DIOXIDE LEVEL 30 MMOL/L (20-31); CHLORIDE LEVEL 98 MMOL/L (98-107); CPK CREATINE PHOSPHOKINASE 43 U/L (34-145); GLOMERULAR FILTRATION RATE > 60.0 (>58); GLUCOSE, FASTING 85 MG/DL (60-100); SODIUM LEVEL 137 MMOL/L (136-145); THYROID STIMULATING HORMONE 2.473 uIU/ML (0.55-4.78)
== END ==
LOC: M LAB REF 15:19
PROVIDERS: ATTEND Pediatrics
DX: M79.7 Fibromyalgia (principal); M62.82 Rhabdomyolysis

== ENCOUNTER 2022-12-02 14:39 | Inpatient (IN) | payer OTHER ==
[~2022-12-02] VITALS: Ht 157.5 cm; Wt 104.4 kg
[2022-12-02] MEDS ORDERED: ONDANSETRON 4MG 2ML VIAL IV ONE (18:45)
[2022-12-02] MEDS ORDERED: NS 1,000 ML IV ONE (18:45)
[2022-12-02] MEDS ORDERED: PREG100C PO (19:26)
[2022-12-02] MEDS ORDERED: HOME MED LIST COMPLETE! XX SCH (19:30)
[2022-12-02 19:33] LABS: BASO # 0.1 10^3/uL (0.0-0.2); BASO % 0.3 % (0.0-1.0); EOS # 0.2 10^3/uL (0.0-0.5); EOS % 0.8 % (0.0-3.0); HEMATOCRIT 40.2 % (36.0-47.0); HEMOGLOBIN 12.9 g/dl (12.0-15.5); LYMPH # 2.2 10^3/uL (1.5-5.0); LYMPH % 10.4 % (24.0-44.0); MEAN CORPUSCULAR HEMOGLOBIN 29.7 pg (27.0-33.0); MEAN CORPUSCULAR HGB CONC 32.1 g/dl (32.0-36.5); MEAN CORPUSCULAR VOLUME 92.4 fl (80.0-96.0); MONO # 0.9 10^3/uL (0.0-0.8); MONO % 4.2 % (2.0-8.0); NEUTROPHILS # 17.3 10^3/uL (1.5-8.5); PLATELET COUNT, AUTOMATED 314 10^3/uL (150-450); RED BLOOD COUNT 4.35 10^6/uL (4.00-5.40); WHITE BLOOD COUNT 20.8 10^3/uL (4.0-10.0)
[2022-12-02 20:07] LABS: RSV AMPLIFICATION NEGATIVE (NEGATIVE)
[2022-12-02 20:22] LABS: CPK CREATINE PHOSPHOKINASE 50 U/L (34-145); LIPASE 19 U/L (12-53)
[2022-12-02 20:32] LABS: ALBUMIN 2.6 G/DL (3.2-5.2); ALKALINE PHOSPHATASE 162 U/L (46-116); ALT/SGPT 16 U/L (7.0-40); AST/SGOT 41 U/L (<34); BILIRUBIN,DIRECT 0.2 MG/DL (<0.4); BILIRUBIN,TOTAL 0.4 MG/DL (0.3-1.2); BLOOD UREA NITROGEN 6 MG/DL (9-23); CALCIUM LEVEL 8.5 MG/DL (8.5-10.1); CARBON DIOXIDE LEVEL 32 MMOL/L (20-31); CHLORIDE LEVEL 99 MMOL/L (98-107); CREATININE FOR GFR 0.62 MG/DL (0.55-1.30); GLOMERULAR FILTRATION RATE > 60.0 (>58); GLUCOSE, FASTING 85 MG/DL (60-100); POTASSIUM SERUM 5.3 MMOL/L (3.5-5.1); SODIUM LEVEL 137 MMOL/L (136-145); TOTAL PROTEIN 6.3 G/DL (5.7-8.2)
[2022-12-02] MEDS ORDERED: cefTRIAXone SOD 1 GM in D5W MINI-BAG PLUS 50 ML IV ONE (20:50)
[2022-12-02] MEDS ORDERED: ISOVUE-370 76% 100ML VIAL As Ordered ONE (20:58)
[2022-12-02 22:51] LABS: MAGNESIUM LEVEL 1.8 MG/DL (1.8-2.4)
[2022-12-02] MEDS ORDERED: tiZANidine 4 MG TAB PO ONE (23:00)
[2022-12-02] MEDS ORDERED: PREGABALIN 100 MG CAP (LYRICA) PO ONE (23:00)
[2022-12-02] MEDS ORDERED: FLUTICASONE PROP 0.05% NASAL SPRAY 16 GM (FLONASE) NARES PRN (23:25)
[2022-12-03 00:48] VITALS: BP 114/69
[2022-12-03] MEDS: traZODone 50 MG TAB PO SCH ×2 (01:11→21:52)
[2022-12-03] MEDS: OMEPRAZOLE 20MG CAP PO SCH ×3 (01:11→21:51)
[2022-12-03] MEDS: DULoxetine 30MG CAPSULE (CYMBALTA) PO SCH ×2 (01:11→21:51)
[2022-12-03] MEDS: NYSTATIN 100,000 UNITS/GM TOPICAL PWD 15GM TOP SCH ×3 (01:11→21:52)
[2022-12-03 02:33] LABS: AMPHETAMINES LEVEL URINE NEGATIVE (NEGATIVE); BARBITURATES URINE NEGATIVE (NEGATIVE); CANNABINOIDS URINE NEGATIVE (NEGATIVE); COCAINE METABOLITE URINE NEGATIVE (NEGATIVE); METHADONE URINE NEGATIVE (NEGATIVE); OPIATES URINE NEGATIVE (NEGATIVE); PHENCYCLIDINE URINE NEGATIVE (NEGATIVE)
[2022-12-03 02:34] LABS: BENZODIAZEPINES URINE NEGATIVE (NEGATIVE)
[2022-12-03] MEDS: NS 1,000 ML IV SCH ×3 (02:52→21:51)
[2022-12-03 05:52] VITALS: BP 114/69
[2022-12-03 06:31] LABS: HEMATOCRIT 34.2 % (36.0-47.0); MEAN CORPUSCULAR HEMOGLOBIN 29.8 pg (27.0-33.0); MEAN CORPUSCULAR HGB CONC 32.2 g/dl (32.0-36.5); MEAN CORPUSCULAR VOLUME 92.7 fl (80.0-96.0); PLATELET COUNT, AUTOMATED 250 10^3/uL (150-450); RED BLOOD COUNT 3.69 10^6/uL (4.00-5.40); WHITE BLOOD COUNT 14.4 10^3/uL (4.0-10.0)
[2022-12-03 07:05] LABS: BLOOD UREA NITROGEN 6 MG/DL (9-23); CALCIUM LEVEL 8.2 MG/DL (8.5-10.1); CARBON DIOXIDE LEVEL 31 MMOL/L (20-31); CHLORIDE LEVEL 102 MMOL/L (98-107); CREATININE FOR GFR 0.62 MG/DL (0.55-1.30); GLOMERULAR FILTRATION RATE > 60.0 (>58); GLUCOSE, FASTING 82 MG/DL (60-100); MAGNESIUM LEVEL 1.7 MG/DL (1.8-2.4); POTASSIUM SERUM 3.8 MMOL/L (3.5-5.1); SODIUM LEVEL 139 MMOL/L (136-145)
[2022-12-03] MEDS ORDERED: MAGNESIUM OXIDE 400MG TAB (MAG-OX) PO ONE (07:35)
[2022-12-03] MEDS: LACTOBACILLUS ACIDOPHILUS CAP (BACID) PO SCH ×2 (09:02→18:07)
[2022-12-03] MEDS: PREGABALIN 100 MG CAP (LYRICA) PO SCH ×3 (09:02→21:51)
[2022-12-03] MEDS: ENOXAPARIN 40MG/0.4ML SYRINGE (J1650 PER 10MG) SC SCH (09:03)
[2022-12-03] MEDS: tiZANidine 4 MG TAB PO PRN ×3 (09:05→21:52)
[2022-12-03 14:09] VITALS: BP 101/69
[2022-12-03] MEDS: ACETAMINOPHEN TAB 650MG DOSE (2X325MG) PO PRN (15:41)
[2022-12-03 20:40] VITALS: BP 108/69
[2022-12-03] MEDS: cefTRIAXone SOD 1 GM in D5W MINI-BAG PLUS 50 ML IV SCH (21:52)
[2022-12-04] MEDS: ACETAMINOPHEN TAB 650MG DOSE (2X325MG) PO PRN ×2 (03:30→10:21)
[2022-12-04 06:31] LABS: BASO % 0.3 % (0.0-1.0); EOS # 0.1 10^3/uL (0.0-0.5); EOS % 1.2 % (0.0-3.0); HEMATOCRIT 31.2 % (36.0-47.0); HEMOGLOBIN 10.1 g/dl (12.0-15.5); LYMPH # 2.2 10^3/uL (1.5-5.0); LYMPH % 22.9 % (24.0-44.0); MEAN CORPUSCULAR HGB CONC 32.4 g/dl (32.0-36.5); MEAN CORPUSCULAR VOLUME 92.6 fl (80.0-96.0); MONO # 0.6 10^3/uL (0.0-0.8); MONO % 5.8 % (2.0-8.0); NEUTROPHILS # 6.4 10^3/uL (1.5-8.5); NEUTROPHILS % 68.1 % (36.0-66.0); PLATELET COUNT, AUTOMATED 244 10^3/uL (150-450); RED BLOOD COUNT 3.37 10^6/uL (4.00-5.40); WHITE BLOOD COUNT 9.4 10^3/uL (4.0-10.0)
[2022-12-04 06:35] VITALS: BP 112/67
[2022-12-04 07:00] VITALS: BP 115/65
[2022-12-04 08:02] LABS: ALKALINE PHOSPHATASE 120 U/L (46-116); ALT/SGPT < 9 U/L (7.0-40); AST/SGOT 10 U/L (<34); BILIRUBIN,TOTAL 0.3 MG/DL (0.3-1.2); BLOOD UREA NITROGEN 5 MG/DL (9-23); CALCIUM LEVEL 8.1 MG/DL (8.5-10.1); CARBON DIOXIDE LEVEL 30 MMOL/L (20-31); CHLORIDE LEVEL 104 MMOL/L (98-107); CREATININE FOR GFR 0.57 MG/DL (0.55-1.30); GLOMERULAR FILTRATION RATE > 60.0 (>58); GLUCOSE, FASTING 81 MG/DL (60-100); MAGNESIUM LEVEL 1.8 MG/DL (1.8-2.4); POTASSIUM SERUM 3.8 MMOL/L (3.5-5.1); SODIUM LEVEL 139 MMOL/L (136-145); TOTAL PROTEIN 4.9 G/DL (5.7-8.2)
[2022-12-04] MEDS: ENOXAPARIN 40MG/0.4ML SYRINGE (J1650 PER 10MG) SC SCH (10:19)
[2022-12-04] MEDS: LACTOBACILLUS ACIDOPHILUS CAP (BACID) PO SCH ×2 (10:20→18:41)
[2022-12-04] MEDS: tiZANidine 4 MG TAB PO PRN ×3 (10:20→21:00)
[2022-12-04] MEDS: PREGABALIN 100 MG CAP (LYRICA) PO SCH ×3 (10:20→20:54)
[2022-12-04] MEDS: OMEPRAZOLE 20MG CAP PO SCH ×2 (10:21→20:56)
[2022-12-04] MEDS: NYSTATIN 100,000 UNITS/GM TOPICAL PWD 15GM TOP SCH ×2 (10:25→20:55)
[2022-12-04] MEDS: CARBAMIDE PEROXIDE 6.5% OTIC SOLN 15ML AU SCH ×2 (12:51→20:55)
[2022-12-04 14:37] VITALS: BP 105/60
[2022-12-04 20:41] VITALS: BP 103/57
[2022-12-04] MEDS: traZODone 50 MG TAB PO SCH (20:54)
[2022-12-04] MEDS: DULoxetine 30MG CAPSULE (CYMBALTA) PO SCH (20:54)
[2022-12-04] MEDS: cefTRIAXone SOD 1 GM in D5W MINI-BAG PLUS 50 ML IV SCH (22:02)
[2022-12-05 06:24] VITALS: BP 117/63
[2022-12-05] MEDS: OMEPRAZOLE 20MG CAP PO SCH (08:27)
[2022-12-05] MEDS: ENOXAPARIN 40MG/0.4ML SYRINGE (J1650 PER 10MG) SC SCH (08:27)
[2022-12-05] MEDS: NYSTATIN 100,000 UNITS/GM TOPICAL PWD 15GM TOP SCH (08:28)
[2022-12-05] MEDS: PREGABALIN 100 MG CAP (LYRICA) PO SCH (08:28)
[2022-12-05] MEDS: CARBAMIDE PEROXIDE 6.5% OTIC SOLN 15ML AU SCH (08:28)
[2022-12-05] MEDS: LACTOBACILLUS ACIDOPHILUS CAP (BACID) PO SCH (08:28)
[2022-12-05] MEDS: tiZANidine 4 MG TAB PO PRN (08:35)
[2022-12-05] MEDS ORDERED: CEFD300C41 PO (10:56)
== END 2022-12-05 11:30 | disposition left against medical advice (07) | DRG 463 ==
LOC: EDBD 14:39 → M ED 14:39 → M ED INP 23:25 → M MS5PR 12-03 00:40
PROVIDERS: ADMIT Internal Medicine; ATTEND Family Medicine
DX: N39.0 Urinary tract infection, site not specified (principal); R19.7 Diarrhea, unspecified; M48.02 Spinal stenosis, cervical region; F17.200 Nicotine dependence, unspecified, uncomplicated; F41.9 Anxiety disorder, unspecified; F32.A Depression, unspecified; R53.1 Weakness; B96.1 Klebsiella pneumoniae [K. pneumoniae] as the cause of diseases classified elsewhere; M79.7 Fibromyalgia; K21.9 Gastro-esophageal reflux disease without esophagitis; Z99.3 Dependence on wheelchair; Z79.899 Other long term (current) drug therapy; Z86.16 Personal history of COVID-19

== ENCOUNTER 2023-01-26 15:13 | Emergency (ER) | payer OTHER ==
[~2023-01-26] VITALS: Ht 157.5 cm; Wt 118.0 kg
[~2023-01-26 15:13] MED LIST changes: +CEFD300C41 PO; +FLUT50SP17 NARES; -FLUTISP NARES; +PREG100C PO
[2023-01-26 16:51] LABS: BASO # 0.1 10^3/uL (0.0-0.2); BASO % 0.4 % (0.0-1.0); EOS # 0.3 10^3/uL (0.0-0.5); EOS % 1.9 % (0.0-3.0); HEMATOCRIT 39.4 % (36.0-47.0); HEMOGLOBIN 12.8 g/dl (12.0-15.5); LYMPH # 2.6 10^3/uL (1.5-5.0); LYMPH % 18.2 % (24.0-44.0); MEAN CORPUSCULAR HEMOGLOBIN 29.4 pg (27.0-33.0); MEAN CORPUSCULAR HGB CONC 32.5 g/dl (32.0-36.5); MEAN CORPUSCULAR VOLUME 90.6 fl (80.0-96.0); MONO # 0.7 10^3/uL (0.0-0.8); MONO % 4.6 % (2.0-8.0); NEUTROPHILS # 10.6 10^3/uL (1.5-8.5); NEUTROPHILS % 73.9 % (36.0-66.0); PLATELET COUNT, AUTOMATED 307 10^3/uL (150-450); RED BLOOD COUNT 4.35 10^6/uL (4.00-5.40); WHITE BLOOD COUNT 14.3 10^3/uL (4.0-10.0)
[2023-01-26 16:54] LABS: LIPASE 16 U/L (12-53)
[2023-01-26 17:01] LABS: ALBUMIN 2.2 G/DL (3.2-5.2); ALKALINE PHOSPHATASE 142 U/L (46-116); ALT/SGPT < 9 U/L (7.0-40); AST/SGOT 17 U/L (<34); BILIRUBIN,DIRECT 0.1 MG/DL (<0.4); BILIRUBIN,TOTAL 0.3 MG/DL (0.3-1.2); BLOOD UREA NITROGEN 6 MG/DL (9-23); CALCIUM LEVEL 8.4 MG/DL (8.5-10.1); CARBON DIOXIDE LEVEL 34 MMOL/L (20-31); CHLORIDE LEVEL 103 MMOL/L (98-107); CREATININE FOR GFR 0.56 MG/DL (0.55-1.30); GLOMERULAR FILTRATION RATE > 60.0 (>58); GLUCOSE, FASTING 74 MG/DL (60-100); POTASSIUM SERUM 3.3 MMOL/L (3.5-5.1); SODIUM LEVEL 135 MMOL/L (136-145); TOTAL PROTEIN 5.9 G/DL (5.7-8.2)
[2023-01-26] MEDS ORDERED: MORPHINE 4 MG/ML 1ML VIAL IV ONE (17:50)
[2023-01-26] MEDS ORDERED: ONDANSETRON 4MG 2ML VIAL IV ONE (17:50)
[2023-01-26] MEDS ORDERED: POTASSIUM CHLORIDE 10MEQ SR TABLET PO ONE (17:50)
[2023-01-26] MEDS ORDERED: ISOVUE-370 76% 100ML VIAL As Ordered ONE (18:10)
[2023-01-26 20:00] VITALS: BP 120/60
== END 2023-01-26 20:01 | disposition home or self-care (01) ==
LOC: M ED 15:13 → EDBD 15:13 → M ED 20:01
DX: R10.9 Unspecified abdominal pain (principal); R19.7 Diarrhea, unspecified; M54.9 Dorsalgia, unspecified; K21.9 Gastro-esophageal reflux disease without esophagitis; F17.200 Nicotine dependence, unspecified, uncomplicated
CPT/HCPCS: 74177; 80047; 80048; 80076; 83690; 85025; 93005; 93041; 96374; 96375; 99285; J2405; Q9967

== ENCOUNTER 2023-04-06 08:36 | Inpatient (IN) | payer OTHER ==
[~2023-04-06] VITALS: Ht 157.5 cm; Wt 104.5 kg
[2023-04-06] MEDS: NYSTATIN 100,000 UNITS/GM TOPICAL PWD 15GM TOP SCH (09:00)
[2023-04-06] MEDS ORDERED: NS 3,140 ML in IV 1 EA IV ONE (09:35)
[2023-04-06 09:46] LABS: BASO % 0.3 % (0.0-1.0); EOS # 0.1 10^3/uL (0.0-0.5); EOS % 0.6 % (0.0-3.0); HEMATOCRIT 36.5 % (36.0-47.0); HEMOGLOBIN 11.7 g/dl (12.0-15.5); LYMPH % 21.8 % (24.0-44.0); MEAN CORPUSCULAR HEMOGLOBIN 28.9 pg (27.0-33.0); MEAN CORPUSCULAR HGB CONC 32.1 g/dl (32.0-36.5); MEAN CORPUSCULAR VOLUME 90.1 fl (80.0-96.0); MONO # 0.5 10^3/uL (0.0-0.8); MONO % 5.2 % (2.0-8.0); NEUTROPHILS # 6.4 10^3/uL (1.5-8.5); NEUTROPHILS % 70.8 % (36.0-66.0); PLATELET COUNT, AUTOMATED 183 10^3/uL (150-450); RED BLOOD COUNT 4.05 10^6/uL (4.00-5.40); WHITE BLOOD COUNT 9.1 10^3/uL (4.0-10.0)
[2023-04-06 09:54] LABS: INR 1.04; PROTHROMBIN TIME 13.8 SECONDS (12.5-14.5)
[2023-04-06 09:55] LABS: PARTIAL THROMBOPLASTIN TIME 27.1 SECONDS (24.8-34.2)
[2023-04-06 10:14] LABS: CK-MB VALUE MASS < 1.0 NG/ML (<3.6); HCG, SERUM QUANTITATIVE < 2.6 MIU/ML (<4.2); LIPASE 13 U/L (12-53)
[2023-04-06 10:23] LABS: ALKALINE PHOSPHATASE 104 U/L (46-116); ALT/SGPT 15 U/L (7.0-40); AST/SGOT 20 U/L (<34); BILIRUBIN,DIRECT 0.4 MG/DL (<0.4); BILIRUBIN,TOTAL 0.8 MG/DL (0.3-1.2); BLOOD UREA NITROGEN 9 MG/DL (9-23); CALCIUM LEVEL 7.3 MG/DL (8.5-10.1); CARBON DIOXIDE LEVEL > 40.0 MMOL/L (20-31); CHLORIDE LEVEL 84 MMOL/L (98-107); CPK CREATINE PHOSPHOKINASE 104 U/L (34-145); CREATININE FOR GFR 0.63 MG/DL (0.55-1.30); GLOMERULAR FILTRATION RATE > 60.0 (>58); GLUCOSE, FASTING 80 MG/DL (60-100); MB/CK RELATIVE INDEX 0.96 (< OR =4); POTASSIUM SERUM 2.1 MMOL/L (3.5-5.1); SODIUM LEVEL 136 MMOL/L (136-145); TOTAL PROTEIN 4.9 G/DL (5.7-8.2)
[2023-04-06 10:40] LABS: MAGNESIUM LEVEL 1.4 MG/DL (1.8-2.4)
[2023-04-06] MEDS ORDERED: KCL 10MEQ/100ML SWI (KRUN) 10 MEQ in IV 1 EA IV ONE ×2 (11:00→14:00)
[2023-04-06] MEDS ORDERED: ISOVUE-370 76% 100ML VIAL As Ordered ONE (11:07)
[2023-04-06 11:31] LABS: PREALBUMIN 5.4 MG/DL (10.0-40.0)
[2023-04-06] MEDS: MAG SULF 1GM/100ML (MAG RUN) 1 GM in IV 1 EA IV SCH ×2 (11:58→13:03)
[2023-04-06] MEDS ORDERED: POTASSIUM CHLORIDE 10MEQ SR TABLET PO ONE (12:40)
[2023-04-06] MEDS ORDERED: HOME MED LIST COMPLETE! XX SCH (13:50)
[2023-04-06] MEDS: PANTOPRAZOLE 40MG VIAL IV SCH (16:37)
[2023-04-06] MEDS ORDERED: tiZANidine 4 MG TAB PO PRN (16:50)
[2023-04-06] MEDS ORDERED: MAG SULF 1GM/100ML (MAG RUN) 1 GM in IV 1 EA IV SCH (17:00)
[2023-04-06 17:17] LABS: BLOOD UREA NITROGEN 7 MG/DL (9-23); CALCIUM LEVEL 6.9 MG/DL (8.5-10.1); CARBON DIOXIDE LEVEL > 40.0 MMOL/L (20-31); CHLORIDE LEVEL 93 MMOL/L (98-107); CREATININE FOR GFR 0.53 MG/DL (0.55-1.30); GLOMERULAR FILTRATION RATE > 60.0 (>58); GLUCOSE, FASTING 74 MG/DL (60-100); POTASSIUM SERUM 2.5 MMOL/L (3.5-5.1); SODIUM LEVEL 137 MMOL/L (136-145)
[2023-04-06 17:58] VITALS: BP 109/65; TEMP 97.2; O2SAT 98
[2023-04-06] MEDS: cefTRIAXone SOD 1 GM in D5W MINI-BAG PLUS 50 ML IV SCH (18:16)
[2023-04-06] MEDS: POTASSIUM CHLORIDE INJ 20 MEQ in LR 1,000 ML IV SCH (18:50)
[2023-04-06] MEDS: traZODone 50 MG TAB PO SCH (20:02)
[2023-04-06] MEDS: PREGABALIN 100 MG CAP (LYRICA) PO SCH (20:02)
[2023-04-06] MEDS: DULoxetine 30MG CAPSULE (CYMBALTA) PO SCH (20:02)
[2023-04-06] MEDS: KCL 10MEQ/100ML SWI (KRUN) 10 MEQ in IV 1 EA IV SCH ×4 (20:03→23:27)
[2023-04-06 20:48] VITALS: BP 98/50; TEMP 98.1; O2SAT 95
[2023-04-07 00:41] LABS: BLOOD UREA NITROGEN < 5 MG/DL (9-23); CARBON DIOXIDE LEVEL 38 MMOL/L (20-31); CHLORIDE LEVEL 96 MMOL/L (98-107); CREATININE FOR GFR 0.51 MG/DL (0.55-1.30); GLOMERULAR FILTRATION RATE > 60.0 (>58); GLUCOSE, FASTING 76 MG/DL (60-100); POTASSIUM SERUM 2.9 MMOL/L (3.5-5.1); SODIUM LEVEL 137 MMOL/L (136-145)
[2023-04-07] MEDS: ONDANSETRON 4MG 2ML VIAL IV PRN ×2 (02:00→07:55)
[2023-04-07] MEDS: POTASSIUM CHLORIDE INJ 20 MEQ in LR 1,000 ML IV SCH (03:11)
[2023-04-07 05:22] VITALS: BP 104/72; TEMP 98.2; O2SAT 94
[2023-04-07 06:33] LABS: HEMATOCRIT 33.1 % (36.0-47.0); HEMOGLOBIN 10.8 g/dl (12.0-15.5); MEAN CORPUSCULAR HEMOGLOBIN 29.3 pg (27.0-33.0); MEAN CORPUSCULAR HGB CONC 32.6 g/dl (32.0-36.5); MEAN CORPUSCULAR VOLUME 89.7 fl (80.0-96.0); PLATELET COUNT, AUTOMATED 192 10^3/uL (150-450); RED BLOOD COUNT 3.69 10^6/uL (4.00-5.40); WHITE BLOOD COUNT 9.8 10^3/uL (4.0-10.0)
[2023-04-07 07:08] LABS: BLOOD UREA NITROGEN 5 MG/DL (9-23); CALCIUM LEVEL 7.3 MG/DL (8.5-10.1); CARBON DIOXIDE LEVEL 38 MMOL/L (20-31); CHLORIDE LEVEL 95 MMOL/L (98-107); CREATININE FOR GFR 0.56 MG/DL (0.55-1.30); GLOMERULAR FILTRATION RATE > 60.0 (>58); GLUCOSE, FASTING 59 MG/DL (60-100); MAGNESIUM LEVEL 1.9 MG/DL (1.8-2.4); POTASSIUM SERUM 2.7 MMOL/L (3.5-5.1); SODIUM LEVEL 138 MMOL/L (136-145)
[2023-04-07] MEDS: KCL 10MEQ/100ML SWI (KRUN) 10 MEQ in IV 1 EA IV SCH ×4 (08:00→11:44)
[2023-04-07] MEDS: PREGABALIN 100 MG CAP (LYRICA) PO SCH ×3 (08:00→20:25)
[2023-04-07] MEDS: NYSTATIN 100,000 UNITS/GM TOPICAL PWD 15GM TOP SCH ×2 (08:00→20:26)
[2023-04-07] MEDS ORDERED: POTASSIUM CHLORIDE 10MEQ SR TABLET PO ONE ×2 (08:00→16:55)
[2023-04-07] MEDS ORDERED: MAALOX 30 ML SUSP *UDC PO PRN (08:20)
[2023-04-07 14:00] VITALS: BP 105/57; TEMP 97.2; O2SAT 98
[2023-04-07 14:10] LABS: BLOOD UREA NITROGEN 5 MG/DL (9-23); CARBON DIOXIDE LEVEL 36 MMOL/L (20-31); CHLORIDE LEVEL 98 MMOL/L (98-107); CREATININE FOR GFR 0.52 MG/DL (0.55-1.30); GLOMERULAR FILTRATION RATE > 60.0 (>58); GLUCOSE, FASTING 74 MG/DL (60-100); POTASSIUM SERUM 3.3 MMOL/L (3.5-5.1); SODIUM LEVEL 136 MMOL/L (136-145)
[2023-04-07] MEDS: PANTOPRAZOLE 40MG VIAL IV SCH (15:16)
[2023-04-07] MEDS: cefTRIAXone SOD 1 GM in D5W MINI-BAG PLUS 50 ML IV SCH (16:29)
[2023-04-07] MEDS: DULoxetine 30MG CAPSULE (CYMBALTA) PO SCH (20:25)
[2023-04-07] MEDS: traZODone 50 MG TAB PO SCH (20:25)
[2023-04-07] MEDS: ENOXAPARIN 40MG/0.4ML SYRINGE (J1650 PER 10MG) SC SCH (20:26)
[2023-04-07 22:00] VITALS: BP 106/56; TEMP 97.7; O2SAT 97
[2023-04-07 23:16] LABS: BLOOD UREA NITROGEN < 5 MG/DL (9-23); CALCIUM LEVEL 6.9 MG/DL (8.5-10.1); CARBON DIOXIDE LEVEL 38 MMOL/L (20-31); CHLORIDE LEVEL 98 MMOL/L (98-107); CREATININE FOR GFR 0.49 MG/DL (0.55-1.30); GLOMERULAR FILTRATION RATE > 60.0 (>58); GLUCOSE, FASTING 77 MG/DL (60-100); POTASSIUM SERUM 3.5 MMOL/L (3.5-5.1); SODIUM LEVEL 138 MMOL/L (136-145)
[2023-04-08] VITALS (14 sets, daily range): BP systolic 80–117; BP diastolic 40–74; TEMP 97.2–97.9; O2SAT 62–98
[2023-04-08] MEDS ORDERED: NS 1,000 ML IV ONE (07:00)
[2023-04-08 07:19] LABS: HEMATOCRIT 30.3 % (36.0-47.0); HEMOGLOBIN 9.8 g/dl (12.0-15.5); MEAN CORPUSCULAR HEMOGLOBIN 29.2 pg (27.0-33.0); MEAN CORPUSCULAR HGB CONC 32.3 g/dl (32.0-36.5); MEAN CORPUSCULAR VOLUME 90.2 fl (80.0-96.0); PLATELET COUNT, AUTOMATED 177 10^3/uL (150-450); RED BLOOD COUNT 3.36 10^6/uL (4.00-5.40); WHITE BLOOD COUNT 7.9 10^3/uL (4.0-10.0)
[2023-04-08 07:51] LABS: CK-MB VALUE MASS < 1.0 NG/ML (<3.6)
[2023-04-08 07:52] LABS: CPK CREATINE PHOSPHOKINASE 77 U/L (34-145); MB/CK RELATIVE INDEX 1.29 (< OR =4)
[2023-04-08 07:55] LABS: BLOOD UREA NITROGEN < 5 MG/DL (9-23); CARBON DIOXIDE LEVEL 38 MMOL/L (20-31); CHLORIDE LEVEL 97 MMOL/L (98-107); CREATININE FOR GFR 0.51 MG/DL (0.55-1.30); GLOMERULAR FILTRATION RATE > 60.0 (>58); GLUCOSE, FASTING 84 MG/DL (60-100); MAGNESIUM LEVEL 1.7 MG/DL (1.8-2.4); POTASSIUM SERUM 3.3 MMOL/L (3.5-5.1); SODIUM LEVEL 137 MMOL/L (136-145)
[2023-04-08] MEDS: PREGABALIN 100 MG CAP (LYRICA) PO SCH ×3 (08:22→21:34)
[2023-04-08] MEDS: LR 1,000 ML IV SCH ×2 (08:22→21:35)
[2023-04-08] MEDS: ENOXAPARIN 40MG/0.4ML SYRINGE (J1650 PER 10MG) SC SCH (08:22)
[2023-04-08] MEDS ORDERED: MAG SULF 1GM/100ML (MAG RUN) 1 GM in IV 1 EA IV ONE (09:20)
[2023-04-08] MEDS ORDERED: POTASSIUM CHLORIDE 10MEQ SR TABLET PO ONE (09:20)
[2023-04-08 09:39] LABS: LDH LACTATE DEHYDROGENASE 183 U/L (120-246)
[2023-04-08 09:40] LABS: BILIRUBIN,DIRECT 0.4 MG/DL (<0.4); BILIRUBIN,TOTAL 0.7 MG/DL (0.3-1.2)
[2023-04-08] MEDS: MIDODRINE 5 MG TAB PO SCH ×2 (14:29→15:19)
[2023-04-08] MEDS ORDERED: SUCRALFATE 1 GM TAB PO SCH (16:00)
[2023-04-08] MEDS: PANTOPRAZOLE 40MG VIAL IV SCH (16:54)
[2023-04-08] MEDS ORDERED: ONDANSETRON 4MG 2ML VIAL IV PRN (17:25)
[2023-04-08] MEDS ORDERED: LR 1,000 ML IV SCH (17:25)
[2023-04-08] MEDS ORDERED: fentaNYL 100 MCG/2 ML INJECTION As Ordered ONE (17:34)
[2023-04-08] MEDS ORDERED: LIDOCAINE 2% 100MG/5ML SDV (FOR ANES.) As Ordered ONE (17:34)
[2023-04-08] MEDS ORDERED: propofoL 200 MG/20 ML VIAL As Ordered ONE (17:34)
[2023-04-08] MEDS: CEFDINIR 300 MG CAP (OMNICEF) PO SCH (19:53)
[2023-04-08] MEDS: traZODone 50 MG TAB PO SCH (21:34)
[2023-04-08] MEDS: DULoxetine 30MG CAPSULE (CYMBALTA) PO SCH (21:34)
[2023-04-08] MEDS: ONDANSETRON 4MG 2ML VIAL IV PRN (21:34)
[2023-04-08] MEDS: SUCRALFATE SUSP 1GM/10ML UD PO SCH (21:34)
[2023-04-08 23:02] LABS: HEMATOCRIT 32.1 % (36.0-47.0); HEMOGLOBIN 10.2 g/dl (12.0-15.5)
[2023-04-09] VITALS (7 sets, daily range): BP systolic 115–168; BP diastolic 69–76; TEMP 97–97.7; O2SAT 94–98
[2023-04-09] MEDS: CEFDINIR 300 MG CAP (OMNICEF) PO SCH ×2 (05:43→16:48)
[2023-04-09 06:26] LABS: HEMATOCRIT 30.9 % (36.0-47.0); HEMOGLOBIN 9.9 g/dl (12.0-15.5); MEAN CORPUSCULAR HEMOGLOBIN 29.3 pg (27.0-33.0); MEAN CORPUSCULAR VOLUME 91.4 fl (80.0-96.0); PLATELET COUNT, AUTOMATED 180 10^3/uL (150-450); RED BLOOD COUNT 3.38 10^6/uL (4.00-5.40); WHITE BLOOD COUNT 6.5 10^3/uL (4.0-10.0)
[2023-04-09 06:45] LABS: CORTISOL AM 15.5 UG/DL (4.3-22.4)
[2023-04-09 06:49] LABS: FREE T4 1.41 NG/DL (0.89-1.76); THYROID STIMULATING HORMONE 3.272 uIU/ML (0.55-4.78)
[2023-04-09 06:53] LABS: BLOOD UREA NITROGEN < 5 MG/DL (9-23); CALCIUM LEVEL 7.3 MG/DL (8.5-10.1); CARBON DIOXIDE LEVEL 36 MMOL/L (20-31); CHLORIDE LEVEL 98 MMOL/L (98-107); CREATININE FOR GFR 0.51 MG/DL (0.55-1.30); GLOMERULAR FILTRATION RATE > 60.0 (>58); GLUCOSE, FASTING 74 MG/DL (60-100); POTASSIUM SERUM 3.5 MMOL/L (3.5-5.1); SODIUM LEVEL 137 MMOL/L (136-145)
[2023-04-09] MEDS: SUCRALFATE SUSP 1GM/10ML UD PO SCH ×4 (07:30→21:51)
[2023-04-09] MEDS: MIDODRINE 5 MG TAB PO SCH ×3 (07:58→16:48)
[2023-04-09] MEDS: PREGABALIN 100 MG CAP (LYRICA) PO SCH ×3 (07:58→21:51)
[2023-04-09] MEDS: NYSTATIN 100,000 UNITS/GM TOPICAL PWD 15GM TOP SCH (08:17)
[2023-04-09] MEDS ORDERED: E-Z-PAQUE 96% w/w SUSP 176GM BTL As Ordered ONE (09:32)
[2023-04-09] MEDS ORDERED: E-Z-HD 98% w/w 340GM SUSP BTL As Ordered ONE (09:33)
[2023-04-09] MEDS ORDERED: E-Z-GAS II EFFERVESCENT PACKET (SODIUM BICARB./CITRIC ACID/SIMETHICONE) As Ordered ONE (09:33)
[2023-04-09] MEDS: LR 1,000 ML IV SCH (14:57)
[2023-04-09] MEDS: PANTOPRAZOLE 40MG VIAL IV SCH (16:49)
[2023-04-09] MEDS: MICONAZOLE-7 VAGINAL 2% CREAM 47.7GM PV SCH (21:00)
[2023-04-09] MEDS: traZODone 50 MG TAB PO SCH (21:50)
[2023-04-09] MEDS: ACETAMINOPHEN TAB 650MG DOSE (2X325MG) PO PRN (21:51)
[2023-04-09] MEDS: DULoxetine 30MG CAPSULE (CYMBALTA) PO SCH (21:51)
[2023-04-09] MEDS: ENOXAPARIN 40MG/0.4ML SYRINGE (J1650 PER 10MG) SC SCH (21:51)
[2023-04-10] MEDS: LR 1,000 ML IV SCH (00:05)
[2023-04-10 04:50] VITALS: BP 117/69; TEMP 97.2; O2SAT 96
[2023-04-10] MEDS: SUCRALFATE SUSP 1GM/10ML UD PO SCH ×4 (06:09→22:17)
[2023-04-10] MEDS: CEFDINIR 300 MG CAP (OMNICEF) PO SCH ×2 (06:09→18:18)
[2023-04-10 07:57] LABS: HEMATOCRIT 30.1 % (36.0-47.0); HEMOGLOBIN 9.7 g/dl (12.0-15.5); MEAN CORPUSCULAR HEMOGLOBIN 29.2 pg (27.0-33.0); MEAN CORPUSCULAR HGB CONC 32.2 g/dl (32.0-36.5); MEAN CORPUSCULAR VOLUME 90.7 fl (80.0-96.0); PLATELET COUNT, AUTOMATED 169 10^3/uL (150-450); RED BLOOD COUNT 3.32 10^6/uL (4.00-5.40); WHITE BLOOD COUNT 5.4 10^3/uL (4.0-10.0)
[2023-04-10] MEDS: MIDODRINE 5 MG TAB PO SCH ×4 (08:00→16:00)
[2023-04-10 08:25] LABS: BLOOD UREA NITROGEN < 5 MG/DL (9-23); CALCIUM LEVEL 7.3 MG/DL (8.5-10.1); CARBON DIOXIDE LEVEL 38 MMOL/L (20-31); CHLORIDE LEVEL 99 MMOL/L (98-107); CREATININE FOR GFR 0.45 MG/DL (0.55-1.30); GLOMERULAR FILTRATION RATE > 60.0 (>58); GLUCOSE, FASTING 76 MG/DL (60-100); MAGNESIUM LEVEL 1.7 MG/DL (1.8-2.4); POTASSIUM SERUM 3.4 MMOL/L (3.5-5.1); SODIUM LEVEL 138 MMOL/L (136-145)
[2023-04-10] MEDS: PREGABALIN 100 MG CAP (LYRICA) PO SCH ×3 (09:11→22:16)
[2023-04-10] MEDS: ENOXAPARIN 40MG/0.4ML SYRINGE (J1650 PER 10MG) SC SCH ×2 (09:12→22:17)
[2023-04-10 09:15] VITALS: BP 121/71
[2023-04-10] MEDS: NYSTATIN 100,000 UNITS/GM TOPICAL PWD 15GM TOP SCH (09:15)
[2023-04-10] MEDS ORDERED: POTASSIUM CHLORIDE 10% LIQ 20MEQ/15ML UDC PO ONE (11:30)
[2023-04-10] MEDS ORDERED: MAG SULF 1GM/100ML (MAG RUN) 1 GM in IV 1 EA IV ONE (12:00)
[2023-04-10 14:00] VITALS: BP 120/72; TEMP 97.3; O2SAT 97
[2023-04-10] MEDS: PANTOPRAZOLE 40MG VIAL IV SCH (16:07)
[2023-04-10 16:08] VITALS: BP 123/74
[2023-04-10 21:40] VITALS: BP 120/77; TEMP 97.2; O2SAT 98
[2023-04-10] MEDS: DULoxetine 30MG CAPSULE (CYMBALTA) PO SCH (22:16)
[2023-04-10] MEDS: traZODone 50 MG TAB PO SCH (22:16)
[2023-04-10] MEDS: MICONAZOLE-7 VAGINAL 2% CREAM 47.7GM PV SCH (22:17)
[2023-04-11 04:30] VITALS: BP 119/74; TEMP 97.2; O2SAT 98
[2023-04-11] MEDS: NYSTATIN 500,000U/5ML SUSP UDC PO SCH ×5 (06:05→22:05)
[2023-04-11] MEDS: CEFDINIR 300 MG CAP (OMNICEF) PO SCH ×2 (06:06→18:27)
[2023-04-11] MEDS: SUCRALFATE SUSP 1GM/10ML UD PO SCH ×4 (06:06→22:04)
[2023-04-11 06:26] LABS: BLOOD UREA NITROGEN < 5 MG/DL (9-23); CALCIUM LEVEL 7.7 MG/DL (8.5-10.1); CARBON DIOXIDE LEVEL 35 MMOL/L (20-31); CHLORIDE LEVEL 99 MMOL/L (98-107); CREATININE FOR GFR 0.47 MG/DL (0.55-1.30); GLOMERULAR FILTRATION RATE > 60.0 (>58); GLUCOSE, FASTING 73 MG/DL (60-100); MAGNESIUM LEVEL 1.7 MG/DL (1.8-2.4); POTASSIUM SERUM 4.7 MMOL/L (3.5-5.1); SODIUM LEVEL 137 MMOL/L (136-145)
[2023-04-11 06:49] LABS: HEMOGLOBIN 9.8 g/dl (12.0-15.5); MEAN CORPUSCULAR HEMOGLOBIN 29.1 pg (27.0-33.0); MEAN CORPUSCULAR HGB CONC 31.6 g/dl (32.0-36.5); PLATELET COUNT, AUTOMATED 158 10^3/uL (150-450); RED BLOOD COUNT 3.37 10^6/uL (4.00-5.40); WHITE BLOOD COUNT 5.8 10^3/uL (4.0-10.0)
[2023-04-11] MEDS: MIDODRINE 5 MG TAB PO SCH ×3 (08:00→16:00)
[2023-04-11] MEDS: PREGABALIN 100 MG CAP (LYRICA) PO SCH ×3 (08:07→22:04)
[2023-04-11] MEDS: ENOXAPARIN 40MG/0.4ML SYRINGE (J1650 PER 10MG) SC SCH ×2 (08:07→22:04)
[2023-04-11 08:08] VITALS: BP 120/76
[2023-04-11] MEDS: NYSTATIN 100,000 UNITS/GM TOPICAL PWD 15GM TOP SCH (08:08)
[2023-04-11 13:32] VITALS: BP 120/74
[2023-04-11 14:00] VITALS: BP 116/66; TEMP 97.3; O2SAT 96
[2023-04-11] MEDS: PANTOPRAZOLE 40MG VIAL IV SCH (16:12)
[2023-04-11 16:13] VITALS: BP 115/66
[2023-04-11 20:42] VITALS: BP 128/65; TEMP 96.8; O2SAT 97
[2023-04-11] MEDS: MICONAZOLE-7 VAGINAL 2% CREAM 47.7GM PV SCH (21:00)
[2023-04-11] MEDS: traZODone 50 MG TAB PO SCH (21:00)
[2023-04-11] MEDS: DULoxetine 30MG CAPSULE (CYMBALTA) PO SCH (22:03)
[2023-04-12 05:44] VITALS: BP 114/66; TEMP 97.5; O2SAT 95
[2023-04-12] MEDS: NYSTATIN 500,000U/5ML SUSP UDC PO SCH ×3 (06:22→16:46)
[2023-04-12] MEDS: CEFDINIR 300 MG CAP (OMNICEF) PO SCH ×2 (06:22→16:46)
[2023-04-12] MEDS: SUCRALFATE SUSP 1GM/10ML UD PO SCH ×4 (08:05→20:34)
[2023-04-12] MEDS: PREGABALIN 100 MG CAP (LYRICA) PO SCH ×3 (08:05→20:34)
[2023-04-12] MEDS: ENOXAPARIN 40MG/0.4ML SYRINGE (J1650 PER 10MG) SC SCH ×2 (08:05→20:34)
[2023-04-12] MEDS: MIDODRINE 5 MG TAB PO SCH ×3 (08:07→16:46)
[2023-04-12] MEDS: NYSTATIN 100,000 UNITS/GM TOPICAL PWD 15GM TOP SCH (08:09)
[2023-04-12] MEDS: PANTOPRAZOLE 40MG VIAL IV SCH (16:46)
[2023-04-12] MEDS: DULoxetine 30MG CAPSULE (CYMBALTA) PO SCH (20:34)
[2023-04-12] MEDS: traZODone 50 MG TAB PO SCH (20:34)
[2023-04-12] MEDS: MICONAZOLE-7 VAGINAL 2% CREAM 47.7GM PV SCH (20:36)
[2023-04-13] MEDS: NYSTATIN 500,000U/5ML SUSP UDC PO SCH ×5 (00:26→23:08)
[2023-04-13 05:42] VITALS: BP 119/87; TEMP 97.2; O2SAT 98
[2023-04-13] MEDS: ENOXAPARIN 40MG/0.4ML SYRINGE (J1650 PER 10MG) SC SCH ×2 (08:21→20:13)
[2023-04-13] MEDS: SUCRALFATE SUSP 1GM/10ML UD PO SCH ×4 (08:21→20:13)
[2023-04-13] MEDS: PREGABALIN 100 MG CAP (LYRICA) PO SCH ×3 (08:21→20:13)
[2023-04-13] MEDS: MIDODRINE 5 MG TAB PO SCH ×3 (08:22→17:30)
[2023-04-13] MEDS: NYSTATIN 100,000 UNITS/GM TOPICAL PWD 15GM TOP SCH (08:22)
[2023-04-13] MEDS: ACETAMINOPHEN TAB 650MG DOSE (2X325MG) PO PRN (08:25)
[2023-04-13] MEDS: ONDANSETRON 4MG 2ML VIAL IV PRN (14:24)
[2023-04-13] MEDS: OMEPRAZOLE/SODIUM BICARB 20-840MG 10ML ORAL SYRINGE PO SCH (17:30)
[2023-04-13] MEDS ORDERED: ONDANSETRON 4MG ORAL DISINTEGRATING TAB SL PRN (20:00)
[2023-04-13] MEDS: traZODone 50 MG TAB PO SCH (20:13)
[2023-04-13] MEDS: DULoxetine 30MG CAPSULE (CYMBALTA) PO SCH (20:13)
[2023-04-13] MEDS: MICONAZOLE-7 VAGINAL 2% CREAM 47.7GM PV SCH (21:00)
[2023-04-13 22:00] VITALS: BP 122/70
[2023-04-14 05:23] VITALS: BP 109/69; TEMP 97.3; O2SAT 98
[2023-04-14] MEDS: NYSTATIN 500,000U/5ML SUSP UDC PO SCH ×3 (05:42→17:50)
[2023-04-14 06:00] VITALS: BP 109/69
[2023-04-14] MEDS: MIDODRINE 5 MG TAB PO SCH ×3 (08:15→16:19)
[2023-04-14] MEDS: PREGABALIN 100 MG CAP (LYRICA) PO SCH ×3 (08:15→20:23)
[2023-04-14] MEDS: OMEPRAZOLE/SODIUM BICARB 20-840MG 10ML ORAL SYRINGE PO SCH (08:15)
[2023-04-14] MEDS: NYSTATIN 100,000 UNITS/GM TOPICAL PWD 15GM TOP SCH (08:16)
[2023-04-14] MEDS: SUCRALFATE SUSP 1GM/10ML UD PO SCH ×4 (08:16→20:22)
[2023-04-14] MEDS: ENOXAPARIN 40MG/0.4ML SYRINGE (J1650 PER 10MG) SC SCH ×2 (08:16→20:24)
[2023-04-14] MEDS ORDERED: LACTULOSE 20GM/30ML SYRUP UDC PO ONE (09:00)
[2023-04-14] MEDS: MIRALAX *UNIT DOSE* 17GM PACKET PO PRN (10:22)
[2023-04-14] MEDS: SENNA 8.6 MG TAB (SENOKOT) PO PRN (10:22)
[2023-04-14] MEDS: tiZANidine 4 MG TAB PO PRN (10:22)
[2023-04-14] MEDS: traZODone 50 MG TAB PO SCH (20:22)
[2023-04-14] MEDS: DULoxetine 30MG CAPSULE (CYMBALTA) PO SCH (20:22)
[2023-04-14] MEDS: CARBAMIDE PEROXIDE 6.5% OTIC SOLN 15ML AU SCH (20:24)
[2023-04-14] MEDS: ACETAMINOPHEN TAB 650MG DOSE (2X325MG) PO PRN (20:24)
[2023-04-14] MEDS: MICONAZOLE-7 VAGINAL 2% CREAM 47.7GM PV SCH (20:25)
[2023-04-15] MEDS: tiZANidine 4 MG TAB PO PRN (00:11)
[2023-04-15] MEDS: NYSTATIN 500,000U/5ML SUSP UDC PO SCH ×5 (00:11→23:31)
[2023-04-15 06:00] VITALS: BP 88/64; TEMP 97.3; O2SAT 99
[2023-04-15] MEDS: OMEPRAZOLE/SODIUM BICARB 20-840MG 10ML ORAL SYRINGE PO SCH (09:38)
[2023-04-15] MEDS: ENOXAPARIN 40MG/0.4ML SYRINGE (J1650 PER 10MG) SC SCH ×2 (09:38→19:54)
[2023-04-15] MEDS: MIRALAX *UNIT DOSE* 17GM PACKET PO PRN (09:38)
[2023-04-15] MEDS: CARBAMIDE PEROXIDE 6.5% OTIC SOLN 15ML AU SCH ×2 (09:39→19:55)
[2023-04-15] MEDS: SENNA 8.6 MG TAB (SENOKOT) PO PRN (09:39)
[2023-04-15] MEDS: MIDODRINE 5 MG TAB PO SCH ×3 (09:39→16:30)
[2023-04-15] MEDS: PREGABALIN 100 MG CAP (LYRICA) PO SCH ×3 (09:39→19:54)
[2023-04-15] MEDS: SUCRALFATE SUSP 1GM/10ML UD PO SCH ×4 (09:39→19:54)
[2023-04-15] MEDS: NYSTATIN 100,000 UNITS/GM TOPICAL PWD 15GM TOP SCH (09:40)
[2023-04-15 11:01] VITALS: BP 100/51; TEMP 97.2; O2SAT 100
[2023-04-15] MEDS: DULoxetine 30MG CAPSULE (CYMBALTA) PO SCH (19:54)
[2023-04-15] MEDS: traZODone 50 MG TAB PO SCH (19:54)
[2023-04-15] MEDS: MICONAZOLE-7 VAGINAL 2% CREAM 47.7GM PV SCH (19:55)
[2023-04-16 05:00] VITALS: BP 107/65; TEMP 97.3; O2SAT 98
[2023-04-16] MEDS: NYSTATIN 500,000U/5ML SUSP UDC PO SCH ×3 (05:10→16:58)
[2023-04-16] MEDS ORDERED: BISACODYL 10MG SUPP PR ONE (07:55)
[2023-04-16] MEDS: PREGABALIN 100 MG CAP (LYRICA) PO SCH ×3 (09:30→21:34)
[2023-04-16] MEDS: MIDODRINE 5 MG TAB PO SCH ×3 (09:30→16:58)
[2023-04-16] MEDS: OMEPRAZOLE/SODIUM BICARB 20-840MG 10ML ORAL SYRINGE PO SCH (09:31)
[2023-04-16] MEDS: SUCRALFATE SUSP 1GM/10ML UD PO SCH ×4 (09:31→21:34)
[2023-04-16] MEDS: ENOXAPARIN 40MG/0.4ML SYRINGE (J1650 PER 10MG) SC SCH ×2 (09:31→21:35)
[2023-04-16] MEDS: NYSTATIN 100,000 UNITS/GM TOPICAL PWD 15GM TOP SCH (09:32)
[2023-04-16] MEDS: CARBAMIDE PEROXIDE 6.5% OTIC SOLN 15ML AU SCH ×2 (09:32→21:37)
[2023-04-16] MEDS: SENNA 8.6 MG TAB (SENOKOT) PO PRN (09:43)
[2023-04-16] MEDS: MIRALAX *UNIT DOSE* 17GM PACKET PO PRN (09:43)
[2023-04-16 12:39] VITALS: BP 116/72
[2023-04-16] MEDS ORDERED: zolPIDEM TARTRATE 5 MG TAB PO ONE (21:00)
[2023-04-16] MEDS: DULoxetine 30MG CAPSULE (CYMBALTA) PO SCH (21:34)
[2023-04-16] MEDS: traZODone 50 MG TAB PO SCH (21:34)
[2023-04-17] MEDS: NYSTATIN 500,000U/5ML SUSP UDC PO SCH ×4 (00:10→17:00)
[2023-04-17 06:00] VITALS: BP 130/79; TEMP 97.5; O2SAT 91
[2023-04-17 08:10] VITALS: BP 116/67
[2023-04-17] MEDS: MIDODRINE 5 MG TAB PO SCH ×3 (08:23→17:00)
[2023-04-17] MEDS: SUCRALFATE SUSP 1GM/10ML UD PO SCH ×4 (08:23→21:45)
[2023-04-17] MEDS: OMEPRAZOLE/SODIUM BICARB 20-840MG 10ML ORAL SYRINGE PO SCH (08:24)
[2023-04-17] MEDS: PREGABALIN 100 MG CAP (LYRICA) PO SCH ×3 (08:24→21:47)
[2023-04-17] MEDS: ENOXAPARIN 40MG/0.4ML SYRINGE (J1650 PER 10MG) SC SCH ×2 (08:24→21:45)
[2023-04-17] MEDS: CARBAMIDE PEROXIDE 6.5% OTIC SOLN 15ML AU SCH ×2 (08:25→21:48)
[2023-04-17] MEDS: NYSTATIN 100,000 UNITS/GM TOPICAL PWD 15GM TOP SCH (08:25)
[2023-04-17 17:01] VITALS: BP 117/72
[2023-04-17] MEDS: POLYVINYL ALCOHOL OPHTH SOLN 15ML (LIQUITEARS) OU PRN ×2 (17:05→22:02)
[2023-04-17] MEDS: traZODone 50 MG TAB PO SCH (21:45)
[2023-04-17] MEDS: zolPIDEM TARTRATE 5 MG TAB PO PRN (21:45)
[2023-04-17] MEDS: DULoxetine 30MG CAPSULE (CYMBALTA) PO SCH (21:46)
[2023-04-18] MEDS: NYSTATIN 500,000U/5ML SUSP UDC PO SCH ×4 (00:42→16:42)
[2023-04-18 05:55] VITALS: BP 140/80; TEMP 97.3; O2SAT 92
[2023-04-18 06:00] VITALS: BP 140/80
[2023-04-18] MEDS: MIDODRINE 5 MG TAB PO SCH ×3 (08:00→16:45)
[2023-04-18] MEDS: POLYVINYL ALCOHOL OPHTH SOLN 15ML (LIQUITEARS) OU PRN (09:03)
[2023-04-18] MEDS: ENOXAPARIN 40MG/0.4ML SYRINGE (J1650 PER 10MG) SC SCH ×2 (09:06→21:18)
[2023-04-18] MEDS: PREGABALIN 100 MG CAP (LYRICA) PO SCH ×3 (09:06→21:17)
[2023-04-18] MEDS: SUCRALFATE SUSP 1GM/10ML UD PO SCH ×4 (09:06→21:17)
[2023-04-18] MEDS: OMEPRAZOLE/SODIUM BICARB 20-840MG 10ML ORAL SYRINGE PO SCH (09:06)
[2023-04-18] MEDS: NYSTATIN 100,000 UNITS/GM TOPICAL PWD 15GM TOP SCH (09:07)
[2023-04-18] MEDS: CARBAMIDE PEROXIDE 6.5% OTIC SOLN 15ML AU SCH (09:08)
[2023-04-18 09:14] VITALS: BP 129/74
[2023-04-18] MEDS ORDERED: FUROSEMIDE 20 MG TAB PO ONE (11:00)
[2023-04-18 12:15] VITALS: BP 107/66
[2023-04-18 16:46] VITALS: BP 100/68
[2023-04-18] MEDS: DULoxetine 30MG CAPSULE (CYMBALTA) PO SCH (21:17)
[2023-04-18] MEDS: traZODone 50 MG TAB PO SCH (21:17)
[2023-04-18] MEDS: zolPIDEM TARTRATE 5 MG TAB PO PRN (21:18)
[2023-04-19] MEDS: NYSTATIN 500,000U/5ML SUSP UDC PO SCH ×3 (01:43→11:19)
[2023-04-19 06:00] VITALS: BP 105/66; TEMP 97.7; O2SAT 99
[2023-04-19] MEDS: NYSTATIN 100,000 UNITS/GM TOPICAL PWD 15GM TOP SCH (07:38)
[2023-04-19] MEDS: POLYVINYL ALCOHOL OPHTH SOLN 15ML (LIQUITEARS) OU PRN (07:39)
[2023-04-19 07:40] VITALS: BP 132/78
[2023-04-19] MEDS: MIDODRINE 5 MG TAB PO SCH ×3 (07:40→16:00)
[2023-04-19] MEDS: PREGABALIN 100 MG CAP (LYRICA) PO SCH ×2 (07:44→16:31)
[2023-04-19] MEDS: ENOXAPARIN 40MG/0.4ML SYRINGE (J1650 PER 10MG) SC SCH (07:44)
[2023-04-19] MEDS: OMEPRAZOLE/SODIUM BICARB 20-840MG 10ML ORAL SYRINGE PO SCH (07:44)
[2023-04-19] MEDS: SUCRALFATE SUSP 1GM/10ML UD PO SCH ×2 (07:45→11:19)
[2023-04-19] MEDS ORDERED: FUROSEMIDE 40 MG TAB PO ONE (11:00)
[2023-04-19 11:42] LABS: BLOOD UREA NITROGEN 7 MG/DL (9-23); CARBON DIOXIDE LEVEL 29 MMOL/L (20-31); CHLORIDE LEVEL 104 MMOL/L (98-107); CREATININE FOR GFR 0.64 MG/DL (0.55-1.30); GLOMERULAR FILTRATION RATE > 60.0 (>58); GLUCOSE, FASTING 93 MG/DL (60-100); MAGNESIUM LEVEL 1.6 MG/DL (1.8-2.4); POTASSIUM SERUM 3.5 MMOL/L (3.5-5.1); SODIUM LEVEL 139 MMOL/L (136-145)
[2023-04-19 12:28] VITALS: BP 129/76
[2023-04-19] MEDS ORDERED: MIDO5TA PO (14:05)
[2023-04-19] MEDS ORDERED: MAGN500T2 PO (14:05)
[2023-04-19] MEDS ORDERED: POTA-151 PO (14:05)
[2023-04-19] MEDS ORDERED: FURO20TA2 PO (14:05)
[2023-04-19] MEDS ORDERED: OMEP90SU PO (14:16)
[2023-04-19] MEDS ORDERED: SUCR1TA PO (15:21)
[2023-04-19] MEDS ORDERED: PANT40TA29 PO (15:21)
[2023-04-19 16:24] VITALS: BP 118/73
[2023-04-19] MEDS ORDERED: AMBI5TAB PO (17:13)
== END 2023-04-19 17:11 | disposition home health service (06) | DRG 243 ==
LOC: M ED 08:36 → EDBD 08:36 → M ED INP 14:56 → ENRESERV 15:03 → M MSPAV 17:59
PROVIDERS: ADMIT Internal Medicine; ATTEND Internal Medicine
PROC: 0DB78ZX Excision of Stomach, Pylorus, Via Natural or Artificial Opening Endoscopic, Diagnostic (ICD-10-PCS; 2023-04-08)
PROC: 0DB28ZX Excision of Middle Esophagus, Via Natural or Artificial Opening Endoscopic, Diagnostic (ICD-10-PCS; principal; 2023-04-08 11:51)
PROC: B246ZZZ Ultrasonography of Right and Left Heart (ICD-10-PCS; 2023-04-11)
DX: K20.80 Other esophagitis without bleeding (principal); L89.152 Pressure ulcer of sacral region, stage 2; E87.3 Alkalosis; I50.30 Unspecified diastolic (congestive) heart failure; E83.42 Hypomagnesemia; Z68.41 Body mass index [BMI] 40.0-44.9, adult; K22.2 Esophageal obstruction; R13.12 Dysphagia, oropharyngeal phase; M79.7 Fibromyalgia; F41.9 Anxiety disorder, unspecified; F32.A Depression, unspecified; K21.9 Gastro-esophageal reflux disease without esophagitis; E66.9 Obesity, unspecified; R39.81 Functional urinary incontinence; D64.9 Anemia, unspecified; F17.210 Nicotine dependence, cigarettes, uncomplicated; L30.4 Erythema intertrigo; K22.89 Other specified disease of esophagus; E87.6 Hypokalemia; N39.0 Urinary tract infection, site not specified; I95.1 Orthostatic hypotension; G47.00 Insomnia, unspecified; K59.09 Other constipation; R11.2 Nausea with vomiting, unspecified; K29.70 Gastritis, unspecified, without bleeding; B96.20 Unspecified Escherichia coli [E. coli] as the cause of diseases classified elsewhere; B37.31 Acute candidiasis of vulva and vagina; Z74.01 Bed confinement status; Z86.16 Personal history of COVID-19; Z79.899 Other long term (current) drug therapy

== ENCOUNTER → 2023-04-27 | Outpatient (REF) | payer OTHER ==
[~2023-04-27] MED LIST changes: +AMBI5TAB PO; +FURO20TA2 PO; +MAGN500T2 PO; +MIDO5TA PO; +OMEP90SU PO; +PANT40TA29 PO; +POTA-151 PO; +SUCR1TA PO
[2023-04-27 17:16] LABS: BLOOD UREA NITROGEN 6 MG/DL (9-23); CALCIUM LEVEL 8.4 MG/DL (8.5-10.1); CARBON DIOXIDE LEVEL 32 MMOL/L (20-31); CHLORIDE LEVEL 102 MMOL/L (98-107); CORTISOL BASELINE 14.3 UG/DL (4.3-22.4); GLOMERULAR FILTRATION RATE > 60.0 (>58); GLUCOSE, FASTING 100 MG/DL (60-100); MAGNESIUM LEVEL 2.1 MG/DL (1.8-2.4); POTASSIUM SERUM 3.5 MMOL/L (3.5-5.1); SODIUM LEVEL 138 MMOL/L (136-145)
== END ==
LOC: M LAB REF 16:02
PROVIDERS: ATTEND Internal Medicine
DX: M79.7 Fibromyalgia (principal); G47.33 Obstructive sleep apnea (adult) (pediatric); E66.01 Morbid (severe) obesity due to excess calories

== ENCOUNTER → 2023-05-03 | Outpatient (REF) | payer OTHER ==
[2023-05-03 16:46] LABS: ALBUMIN 1.6 G/DL (3.2-5.2); ALKALINE PHOSPHATASE 112 U/L (46-116); ALT/SGPT 10 U/L (7.0-40); AST/SGOT < 8 U/L (<34); BILIRUBIN,TOTAL 0.3 MG/DL (0.3-1.2); BLOOD UREA NITROGEN 9 MG/DL (9-23); CALCIUM LEVEL 7.4 MG/DL (8.5-10.1); CARBON DIOXIDE LEVEL 32 MMOL/L (20-31); CHLORIDE LEVEL 105 MMOL/L (98-107); CREATININE FOR GFR 0.55 MG/DL (0.55-1.30); GLOMERULAR FILTRATION RATE > 60.0 (>58); GLUCOSE, FASTING 92 MG/DL (60-100); POTASSIUM SERUM 3.4 MMOL/L (3.5-5.1); SODIUM LEVEL 140 MMOL/L (136-145); TOTAL PROTEIN 4.4 G/DL (5.7-8.2)
== END ==
LOC: M LAB REF 15:58
PROVIDERS: ATTEND Pediatrics
DX: E83.51 Hypocalcemia (principal)

== ENCOUNTER 2023-05-20 22:29 | Emergency (ER) | payer OTHER ==
[~2023-05-20] VITALS: Ht 154.9 cm; Wt 104.5 kg
[2023-05-20] MEDS ORDERED: ONDANSETRON 4MG 2ML VIAL IV ONE (22:45)
[2023-05-20] MEDS ORDERED: NS 1,000 ML IV ONE (22:45)
[2023-05-20] MEDS ORDERED: PANTOPRAZOLE 40MG VIAL IV ONE (22:45)
[2023-05-20] MEDS ORDERED: ISOVUE-370 76% 100ML VIAL As Ordered ONE (22:49)
[2023-05-20 23:21] LABS: BASO % 0.3 % (0.0-1.0); EOS # 0.1 10^3/uL (0.0-0.5); EOS % 1.1 % (0.0-3.0); HEMATOCRIT 33.6 % (36.0-47.0); LYMPH # 2.7 10^3/uL (1.5-5.0); MEAN CORPUSCULAR HEMOGLOBIN 29.3 pg (27.0-33.0); MEAN CORPUSCULAR HGB CONC 32.7 g/dl (32.0-36.5); MEAN CORPUSCULAR VOLUME 89.6 fl (80.0-96.0); MONO # 0.8 10^3/uL (0.0-0.8); MONO % 6.2 % (2.0-8.0); NEUTROPHILS # 8.5 10^3/uL (1.5-8.5); NEUTROPHILS % 68.9 % (36.0-66.0); PLATELET COUNT, AUTOMATED 412 10^3/uL (150-450); RED BLOOD COUNT 3.75 10^6/uL (4.00-5.40); WHITE BLOOD COUNT 12.3 10^3/uL (4.0-10.0)
[2023-05-20 23:32] LABS: LIPASE 16 U/L (12-53)
[2023-05-20 23:38] LABS: ALBUMIN 2.3 G/DL (3.2-5.2); ALKALINE PHOSPHATASE 136 U/L (46-116); ALT/SGPT 10 U/L (7.0-40); AST/SGOT 13 U/L (<34); BILIRUBIN,DIRECT 0.2 MG/DL (<0.4); BILIRUBIN,TOTAL 0.5 MG/DL (0.3-1.2); BLOOD UREA NITROGEN < 5 MG/DL (9-23); CALCIUM LEVEL 8.7 MG/DL (8.5-10.1); CARBON DIOXIDE LEVEL 28 MMOL/L (20-31); CHLORIDE LEVEL 103 MMOL/L (98-107); GLOMERULAR FILTRATION RATE > 60.0 (>58); GLUCOSE, FASTING 96 MG/DL (60-100); POTASSIUM SERUM 3.9 MMOL/L (3.5-5.1); SODIUM LEVEL 139 MMOL/L (136-145); TOTAL PROTEIN 5.6 G/DL (5.7-8.2)
[2023-05-21 01:30] VITALS: BP 130/68; TEMP 98; O2SAT 94
[2023-05-21] MEDS ORDERED: ONDA4TAB6 PO (02:07)
== END 2023-05-21 04:37 | disposition home or self-care (01) ==
LOC: M ED 22:29 → EDBD 22:29 → M ED 05-21 04:37
DX: R11.2 Nausea with vomiting, unspecified (principal); R19.7 Diarrhea, unspecified; I25.10 Atherosclerotic heart disease of native coronary artery without angina pectoris; M79.7 Fibromyalgia; K21.9 Gastro-esophageal reflux disease without esophagitis; Z79.899 Other long term (current) drug therapy
CPT/HCPCS: 74176; 80048; 80076; 81001; 83690; 85025; 87086; 93041; 96374; 96375; 99284; C9113; J2405

== ENCOUNTER 2023-07-29 21:51 | Emergency (ER) | payer OTHER ==
[~2023-07-29] VITALS: Ht 154.9 cm; Wt 111.1 kg
[~2023-07-29 21:51] MED LIST changes: +ONDA4TAB6 PO; -PREG100C PO; +PREG100C2 PO; -PREG75CA2 PO; +PREG75CA3 PO
[2023-07-29 23:23] LABS: BASO % 0.2 % (0.0-1.0); EOS # 0.1 10^3/uL (0.0-0.5); EOS % 0.7 % (0.0-3.0); HEMATOCRIT 34.9 % (36.0-47.0); HEMOGLOBIN 11.8 g/dl (12.0-15.5); LYMPH % 22.7 % (24.0-44.0); MEAN CORPUSCULAR HEMOGLOBIN 32.2 pg (27.0-33.0); MEAN CORPUSCULAR HGB CONC 33.8 g/dl (32.0-36.5); MEAN CORPUSCULAR VOLUME 95.1 fl (80.0-96.0); MONO # 0.6 10^3/uL (0.0-0.8); MONO % 6.7 % (2.0-8.0); NEUTROPHILS # 6.1 10^3/uL (1.5-8.5); NEUTROPHILS % 69.2 % (36.0-66.0); PLATELET COUNT, AUTOMATED 273 10^3/uL (150-450); RED BLOOD COUNT 3.67 10^6/uL (4.00-5.40); WHITE BLOOD COUNT 8.9 10^3/uL (4.0-10.0)
[2023-07-29 23:42] LABS: LIPASE 13 U/L (12-53)
[2023-07-29 23:44] LABS: ALBUMIN 1.8 G/DL (3.2-5.2); ALKALINE PHOSPHATASE 118 U/L (46-116); ALT/SGPT 32 U/L (7.0-40); AST/SGOT 64 U/L (<34); BILIRUBIN,DIRECT 0.3 MG/DL (<0.4); BILIRUBIN,TOTAL 0.6 MG/DL (0.3-1.2); BLOOD UREA NITROGEN 6 MG/DL (9-23); CALCIUM LEVEL 7.8 MG/DL (8.5-10.1); CARBON DIOXIDE LEVEL 32 MMOL/L (20-31); CHLORIDE LEVEL 103 MMOL/L (98-107); CK-MB VALUE MASS 1.5 NG/ML (<3.6); CREATININE FOR GFR 0.42 MG/DL (0.55-1.30); GLOMERULAR FILTRATION RATE > 60.0 (>58); GLUCOSE, FASTING 89 MG/DL (60-100); POTASSIUM SERUM 4.6 MMOL/L (3.5-5.1); SODIUM LEVEL 137 MMOL/L (136-145); TOTAL PROTEIN 4.8 G/DL (5.7-8.2)
[2023-07-29] MEDS ORDERED: ISOVUE-370 76% 100ML VIAL As Ordered ONE (23:46)
[2023-07-29 23:47] LABS: CPK CREATINE PHOSPHOKINASE 849 U/L (34-145); MB/CK RELATIVE INDEX 0.17 (< OR =4)
[2023-07-30] MEDS ORDERED: ONDANSETRON 4MG 2ML VIAL IV ONE (00:25)
[2023-07-30] MEDS ORDERED: ACETAMINOPHEN *IV* 1,000 MG in IV 1 EA IV ONE (00:25)
[2023-07-30 00:59] LABS: CK-MB VALUE MASS 1.6 NG/ML (<3.6)
[2023-07-30 01:02] LABS: MB/CK RELATIVE INDEX 0.21 (< OR =4)
[2023-07-30 01:06] LABS: RSV AMPLIFICATION NEGATIVE (NEGATIVE)
[2023-07-30] MEDS ORDERED: AMOX875T2 PO (01:29)
[2023-07-30] MEDS ORDERED: REGL10TA6 PO (01:29)
[2023-07-30 07:27] VITALS: BP 108/79
[2023-07-30 13:02] VITALS: TEMP 98.6; O2SAT 98
== END 2023-07-30 18:00 | disposition home or self-care (01) ==
LOC: EDBD 21:51 → M ED 21:51
DX: K52.9 Noninfective gastroenteritis and colitis, unspecified (principal); K21.9 Gastro-esophageal reflux disease without esophagitis; F17.200 Nicotine dependence, unspecified, uncomplicated; Z79.899 Other long term (current) drug therapy
CPT/HCPCS: 71045; 74177; 80047; 80048; 80076; 81001; 82550; 82553; 83605; 83690; 85025; 87631; 93005; 93041; 94760; 96365; 96375; 99285; J0131; J2405; Q9967

== ENCOUNTER 2023-08-10 07:41 | Inpatient (IN) | payer OTHER ==
[~2023-08-10] VITALS: Ht 154.9 cm; Wt 83.6 kg
[~2023-08-10 07:41] MED LIST changes: +AMOX875T2 PO; -CEFD300C41 PO; +CEFD300C42 PO; +REGL10TA6 PO
[2023-08-10 08:17] LABS: BASO # 0.1 10^3/uL (0.0-0.2); BASO % 0.5 % (0.0-1.0); EOS % 0.3 % (0.0-3.0); HEMOGLOBIN 13.5 g/dl (12.0-15.5); LYMPH # 2.4 10^3/uL (1.5-5.0); LYMPH % 19.9 % (24.0-44.0); MEAN CORPUSCULAR HEMOGLOBIN 31.7 pg (27.0-33.0); MEAN CORPUSCULAR HGB CONC 34.6 g/dl (32.0-36.5); MEAN CORPUSCULAR VOLUME 91.5 fl (80.0-96.0); MONO % 8.4 % (2.0-8.0); NEUTROPHILS # 8.5 10^3/uL (1.5-8.5); NEUTROPHILS % 69.5 % (36.0-66.0); PLATELET COUNT, AUTOMATED 256 10^3/uL (150-450); RED BLOOD COUNT 4.26 10^6/uL (4.00-5.40); WHITE BLOOD COUNT 12.2 10^3/uL (4.0-10.0)
[2023-08-10 08:29] LABS: INR 1.08; PROTHROMBIN TIME 13.7 SECONDS (12.5-14.5)
[2023-08-10 08:40] LABS: LIPASE 16 U/L (12-53)
[2023-08-10] MEDS ORDERED: NS 1,000 ML IV ONE (08:45)
[2023-08-10] MEDS ORDERED: ONDANSETRON 4MG 2ML VIAL IV ONE (08:45)
[2023-08-10 08:49] LABS: RSV AMPLIFICATION NEGATIVE (NEGATIVE)
[2023-08-10] MEDS ORDERED: PROMETHAZINE 25MG/ML 1ML VIAL IV ONE (08:50)
[2023-08-10 08:53] LABS: ALBUMIN 2.5 G/DL (3.2-5.2); ALKALINE PHOSPHATASE 81 U/L (46-116); ALT/SGPT 33 U/L (7.0-40); AMYLASE < 20 U/L (30-118); AST/SGOT 37 U/L (<34); BILIRUBIN,DIRECT 0.3 MG/DL (<0.4); BILIRUBIN,TOTAL 0.6 MG/DL (0.3-1.2); BLOOD UREA NITROGEN 6 MG/DL (9-23); CALCIUM LEVEL 8.1 MG/DL (8.5-10.1); CARBON DIOXIDE LEVEL 37 MMOL/L (20-31); CHLORIDE LEVEL 90 MMOL/L (98-107); CREATININE FOR GFR 0.46 MG/DL (0.55-1.30); GLOMERULAR FILTRATION RATE > 60.0 (>58); GLUCOSE, FASTING 114 MG/DL (60-100); POTASSIUM SERUM 2.7 MMOL/L (3.5-5.1); SODIUM LEVEL 138 MMOL/L (136-145); TOTAL PROTEIN 5.7 G/DL (5.7-8.2)
[2023-08-10] MEDS ORDERED: PANTOPRAZOLE 40MG VIAL IV ONE (09:00)
[2023-08-10] MEDS ORDERED: POTASSIUM CHLORIDE 10% LIQ 20MEQ/15ML UDC PO ONE (09:00)
[2023-08-10] MEDS ORDERED: SUCRALFATE SUSP 1GM/10ML UD PO ONE (10:00)
[2023-08-10] MEDS ORDERED: KCL 10MEQ/100ML SWI (KRUN) 10 MEQ in IV 1 EA IV ONE (10:00)
[2023-08-10] MEDS ORDERED: cefTRIAXone SOD 2 GM in D5W MINI-BAG PLUS 50 ML IV ONE (10:25)
[2023-08-10] MEDS ORDERED: MORPHINE 2 MG/ML 1ML VIAL IV ONE (11:00)
[2023-08-10] MEDS ORDERED: ISOVUE-370 76% 100ML VIAL As Ordered ONE (11:00)
[2023-08-10 13:06] LABS: BLOOD UREA NITROGEN 6 MG/DL (9-23); CALCIUM LEVEL 7.8 MG/DL (8.5-10.1); CARBON DIOXIDE LEVEL 38 MMOL/L (20-31); CHLORIDE LEVEL 92 MMOL/L (98-107); CREATININE FOR GFR 0.46 MG/DL (0.55-1.30); GLOMERULAR FILTRATION RATE > 60.0 (>58); GLUCOSE, FASTING 99 MG/DL (60-100); POTASSIUM SERUM 2.7 MMOL/L (3.5-5.1); SODIUM LEVEL 137 MMOL/L (136-145)
[2023-08-10] MEDS ORDERED: MED REC IN PROGRESS XX SCH (14:20)
[2023-08-10] MEDS ORDERED: ACETAMINOPHEN TAB 650MG DOSE (2X325MG) PO PRN (14:35)
[2023-08-10] MEDS ORDERED: MOM 30ML SUSPENSION UDC PO PRN (14:35)
[2023-08-10] MEDS ORDERED: OMEP-173 PO (15:21)
[2023-08-10] MEDS ORDERED: AMOX875T2 PO (15:21)
[2023-08-10] MEDS ORDERED: ONDA4TAB6 PO (15:21)
[2023-08-10] MEDS ORDERED: DICY20TA20 PO (15:21)
[2023-08-10] MEDS ORDERED: HOME MED LIST COMPLETE! XX SCH (15:25)
[2023-08-10 15:54] LABS: PROCALCITONIN <0.04 ng/ml
[2023-08-10 15:56] LABS: ALBUMIN 2.2 G/DL (3.2-5.2); ALKALINE PHOSPHATASE 68 U/L (46-116); ALT/SGPT 29 U/L (7.0-40); AST/SGOT 27 U/L (<34); BILIRUBIN,DIRECT 0.2 MG/DL (<0.4); BILIRUBIN,TOTAL 0.4 MG/DL (0.3-1.2)
[2023-08-10] MEDS: ENOXAPARIN 40MG/0.4ML SYRINGE (J1650 PER 10MG) SC SCH (16:05)
[2023-08-10] MEDS: KCL 10MEQ/100ML SWI (KRUN) 10 MEQ in IV 1 EA IV SCH ×5 (16:17→21:14)
[2023-08-10] MEDS: D5W/LR 1,000 ML IV SCH ×2 (16:17→23:50)
[2023-08-10 16:30] VITALS: BP 112/68; TEMP 97.4; O2SAT 94
[2023-08-10] MEDS ORDERED: PIPERACILLIN/TAZOBACTAM SOD 3.375 GM in D5W MINI-BAG PLUS 50 ML IV SCH (17:00)
[2023-08-10] MEDS: SCOPOLAMINE 1MG TRANSDERMAL PATCH TOP SCH (18:28)
[2023-08-10] MEDS ORDERED: ONDANSETRON 4MG ORAL DISINTEGRATING TAB PO PRN (18:40)
[2023-08-10] MEDS ORDERED: FLUTICASONE PROP 0.05% NASAL SPRAY 16 GM (FLONASE) NARES PRN (18:40)
[2023-08-10 21:00] VITALS: BP 117/69; TEMP 97.7; O2SAT 96
[2023-08-10] MEDS ORDERED: OMEPRAZOLE 20MG CAP PO SCH (21:00)
[2023-08-10] MEDS ORDERED: traZODone 50 MG TAB PO SCH (21:00)
[2023-08-10] MEDS ORDERED: DULoxetine 30MG CAPSULE (CYMBALTA) PO SCH (21:00)
[2023-08-10] MEDS ORDERED: DOCUSATE SODIUM 100MG CAPSULE PO SCH (21:00)
[2023-08-10] MEDS ORDERED: KCL 10MEQ/100ML SWI (KRUN) 10 MEQ in IV 1 EA IV SCH (21:00)
[2023-08-10] MEDS: PIPERACILLIN/TAZOBACTAM SOD 3.375 GM in D5W MINI-BAG PLUS 50 ML IV SCH (22:17)
[2023-08-10] MEDS: PROCHLORPERAZINE 10MG 2ML VIAL IV PRN (23:04)
[2023-08-11] MEDS: PIPERACILLIN/TAZOBACTAM SOD 3.375 GM in D5W MINI-BAG PLUS 50 ML IV SCH ×2 (01:22→10:37)
[2023-08-11] MEDS: PROCHLORPERAZINE 10MG 2ML VIAL IV PRN ×2 (04:30→11:22)
[2023-08-11 04:40] VITALS: BP 119/70; TEMP 97.5; O2SAT 98
[2023-08-11 06:24] LABS: HEMATOCRIT 32.1 % (36.0-47.0); MEAN CORPUSCULAR HEMOGLOBIN 32.2 pg (27.0-33.0); MEAN CORPUSCULAR HGB CONC 34.9 g/dl (32.0-36.5); MEAN CORPUSCULAR VOLUME 92.2 fl (80.0-96.0); PLATELET COUNT, AUTOMATED 189 10^3/uL (150-450); RED BLOOD COUNT 3.48 10^6/uL (4.00-5.40); WHITE BLOOD COUNT 9.1 10^3/uL (4.0-10.0)
[2023-08-11 06:29] LABS: HEMOGLOBIN 11.2 g/dl (12.0-15.5)
[2023-08-11 07:02] LABS: ALKALINE PHOSPHATASE 67 U/L (46-116); ALT/SGPT 31 U/L (7.0-40); AST/SGOT 27 U/L (<34); BILIRUBIN,TOTAL 0.7 MG/DL (0.3-1.2); BLOOD UREA NITROGEN < 5 MG/DL (9-23); CALCIUM LEVEL 7.7 MG/DL (8.5-10.1); CARBON DIOXIDE LEVEL 38 MMOL/L (20-31); CHLORIDE LEVEL 97 MMOL/L (98-107); CREATININE FOR GFR 0.46 MG/DL (0.55-1.30); GLOMERULAR FILTRATION RATE > 60.0 (>58); GLUCOSE, FASTING 111 MG/DL (60-100); MAGNESIUM LEVEL 1.5 MG/DL (1.8-2.4); POTASSIUM SERUM 2.3 MMOL/L (3.5-5.1); SODIUM LEVEL 140 MMOL/L (136-145); TOTAL PROTEIN 4.6 G/DL (5.7-8.2)
[2023-08-11] MEDS: D5W/LR 1,000 ML IV SCH (07:02)
[2023-08-11] MEDS: MAG SULF 1GM/100ML (MAG RUN) 1 GM in IV 1 EA IV SCH ×3 (07:45→13:55)
[2023-08-11] MEDS ORDERED: POTASSIUM CHLORIDE 10MEQ SR TABLET PO SCH (09:00)
[2023-08-11] MEDS ORDERED: POTASSIUM CHLORIDE 10% LIQ 20MEQ/15ML UDC PO SCH (10:00)
[2023-08-11] MEDS: ENOXAPARIN 40MG/0.4ML SYRINGE (J1650 PER 10MG) SC SCH (10:38)
[2023-08-11] MEDS: MAGNESIUM OXIDE 400MG TAB (MAG-OX) PO SCH ×3 (10:39→19:54)
[2023-08-11] MEDS: PANTOPRAZOLE 40MG VIAL IV SCH ×2 (11:01→19:54)
[2023-08-11] MEDS: KCL 10MEQ/100ML SWI (KRUN) 10 MEQ in IV 1 EA IV SCH ×8 (11:39→20:55)
[2023-08-11] MEDS ORDERED: MAGNESIUM SULFATE 1GM/100ML D5W BAG (10MG/ML) As Ordered ONE (13:53)
[2023-08-11 14:00] VITALS: BP 117/81; TEMP 97.3; O2SAT 98
[2023-08-11] MEDS ORDERED: LIDOCAINE 1% MDV 20ML VIAL SC ONE (16:10)
[2023-08-11] MEDS: diphenhydrAMINE 50MG/ML VIAL IV SCH ×2 (16:42→19:54)
[2023-08-11] MEDS: dexAMETHasone 4 MG TAB PO SCH ×2 (16:42→19:54)
[2023-08-11 18:34] LABS: BLOOD UREA NITROGEN < 5 MG/DL (9-23); CALCIUM LEVEL 7.6 MG/DL (8.5-10.1); CARBON DIOXIDE LEVEL 35 MMOL/L (20-31); CHLORIDE LEVEL 98 MMOL/L (98-107); CREATININE FOR GFR 0.42 MG/DL (0.55-1.30); GLOMERULAR FILTRATION RATE > 60.0 (>58); GLUCOSE, FASTING 134 MG/DL (60-100); POTASSIUM SERUM 3.3 MMOL/L (3.5-5.1); SODIUM LEVEL 138 MMOL/L (136-145)
[2023-08-11 19:50] VITALS: BP 117/81; TEMP 98.1; O2SAT 96
[2023-08-11] MEDS: SODIUM CHLORIDE 0.9% INJ 10 ML SYR IV SCH (19:55)
[2023-08-11 20:56] LABS: BLOOD UREA NITROGEN < 5 MG/DL (9-23); CALCIUM LEVEL 7.8 MG/DL (8.5-10.1); CARBON DIOXIDE LEVEL 35 MMOL/L (20-31); CHLORIDE LEVEL 98 MMOL/L (98-107); GLOMERULAR FILTRATION RATE > 60.0 (>58); GLUCOSE, FASTING 126 MG/DL (60-100); POTASSIUM SERUM 3.7 MMOL/L (3.5-5.1); SODIUM LEVEL 136 MMOL/L (136-145)
[2023-08-12] MEDS ORDERED: ACETAMINOPHEN TAB 650MG DOSE (2X325MG) PO ONE (01:23)
[2023-08-12] MEDS ORDERED: ACETAMINOPHEN TAB 650MG DOSE (2X325MG) As Ordered ONE (02:06)
[2023-08-12] MEDS: SODIUM CHLORIDE 0.9% INJ 10 ML SYR IV SCH ×2 (05:40→16:50)
[2023-08-12 05:47] LABS: HEMATOCRIT 32.9 % (36.0-47.0); HEMOGLOBIN 11.2 g/dl (12.0-15.5); MEAN CORPUSCULAR HEMOGLOBIN 31.7 pg (27.0-33.0); MEAN CORPUSCULAR VOLUME 93.2 fl (80.0-96.0); PLATELET COUNT, AUTOMATED 219 10^3/uL (150-450); RED BLOOD COUNT 3.53 10^6/uL (4.00-5.40); WHITE BLOOD COUNT 7.4 10^3/uL (4.0-10.0)
[2023-08-12 06:00] VITALS: BP 135/82; TEMP 98.2; O2SAT 96
[2023-08-12 06:20] LABS: ALBUMIN 2.2 G/DL (3.2-5.2); ALKALINE PHOSPHATASE 68 U/L (46-116); ALT/SGPT 37 U/L (7.0-40); AST/SGOT 35 U/L (<34); BILIRUBIN,TOTAL 0.4 MG/DL (0.3-1.2); BLOOD UREA NITROGEN 5 MG/DL (9-23); CALCIUM LEVEL 7.9 MG/DL (8.5-10.1); CARBON DIOXIDE LEVEL 36 MMOL/L (20-31); CHLORIDE LEVEL 94 MMOL/L (98-107); CREATININE FOR GFR 0.39 MG/DL (0.55-1.30); GLOMERULAR FILTRATION RATE > 60.0 (>58); GLUCOSE, FASTING 135 MG/DL (60-100); MAGNESIUM LEVEL 2.4 MG/DL (1.8-2.4); POTASSIUM SERUM 3.8 MMOL/L (3.5-5.1); SODIUM LEVEL 134 MMOL/L (136-145); TOTAL PROTEIN 4.8 G/DL (5.7-8.2)
[2023-08-12] MEDS: PROCHLORPERAZINE 10MG 2ML VIAL IV PRN (09:49)
[2023-08-12] MEDS: PANTOPRAZOLE 40MG VIAL IV SCH ×2 (09:49→20:10)
[2023-08-12] MEDS: diphenhydrAMINE 50MG/ML VIAL IV SCH ×3 (09:49→20:10)
[2023-08-12] MEDS: ENOXAPARIN 40MG/0.4ML SYRINGE (J1650 PER 10MG) SC SCH (09:50)
[2023-08-12] MEDS: dexAMETHasone 4 MG TAB PO SCH ×3 (09:50→20:08)
[2023-08-12] MEDS: MAGNESIUM OXIDE 400MG TAB (MAG-OX) PO SCH ×3 (09:50→20:09)
[2023-08-12] MEDS: CEFEPIME HCL 2 GM in D5W MINI-BAG PLUS 50 ML IV SCH ×2 (09:51→23:01)
[2023-08-12] MEDS ORDERED: ISOVUE-370 76% 100ML VIAL As Ordered ONE (12:16)
[2023-08-12 14:00] VITALS: BP 134/84; TEMP 97.5; O2SAT 97
[2023-08-12] MEDS ORDERED: BISACODYL 10MG SUPP PR SCH (16:10)
[2023-08-12] MEDS ORDERED: ACETAMINOPHEN TAB 650MG DOSE (2X325MG) PO PRN (22:20)
[2023-08-13] MEDS: PROCHLORPERAZINE 10MG 2ML VIAL IV PRN (01:34)
[2023-08-13] MEDS: SODIUM CHLORIDE 0.9% INJ 10 ML SYR IV SCH ×2 (05:26→17:15)
[2023-08-13 05:30] VITALS: BP 126/78; TEMP 97.5; O2SAT 96
[2023-08-13 05:51] LABS: HEMATOCRIT 33.4 % (36.0-47.0); HEMOGLOBIN 11.3 g/dl (12.0-15.5); MEAN CORPUSCULAR HEMOGLOBIN 31.6 pg (27.0-33.0); MEAN CORPUSCULAR HGB CONC 33.8 g/dl (32.0-36.5); MEAN CORPUSCULAR VOLUME 93.3 fl (80.0-96.0); PLATELET COUNT, AUTOMATED 256 10^3/uL (150-450); RED BLOOD COUNT 3.58 10^6/uL (4.00-5.40); WHITE BLOOD COUNT 12.4 10^3/uL (4.0-10.0)
[2023-08-13] MEDS: MAGNESIUM OXIDE 400MG TAB (MAG-OX) PO SCH ×3 (10:29→20:49)
[2023-08-13] MEDS: PANTOPRAZOLE 40MG VIAL IV SCH ×2 (10:29→20:49)
[2023-08-13] MEDS: ENOXAPARIN 40MG/0.4ML SYRINGE (J1650 PER 10MG) SC SCH (10:29)
[2023-08-13] MEDS: diphenhydrAMINE 50MG/ML VIAL IV SCH (10:29)
[2023-08-13] MEDS: BISACODYL 10MG SUPP PR SCH ×3 (10:30→20:56)
[2023-08-13] MEDS: dexAMETHasone 4 MG TAB PO SCH (10:30)
[2023-08-13] MEDS: CEFEPIME HCL 2 GM in D5W MINI-BAG PLUS 50 ML IV SCH ×2 (10:30→21:29)
[2023-08-13] MEDS ORDERED: METOCLOPRAMIDE INJ 10MG/2ML VIAL IV ONE (13:45)
[2023-08-13 14:00] VITALS: BP 154/98; TEMP 97.5; O2SAT 97
[2023-08-13 14:59] LABS: BLOOD UREA NITROGEN 9 MG/DL (7-21); CARBON DIOXIDE LEVEL 34 MEQ/L (22-30); CHLORIDE LEVEL 94 MEQ/L (98-107); CREATININE FOR GFR 0.4 MG/DL (0.7-1.5); GLOMERULAR FILTRATION RATE > 60.0 (>58); GLUCOSE, FASTING 110 MG/DL (70-99); POTASSIUM SERUM 4.3 MEQ/L (3.6-5.0); SODIUM LEVEL 136 MEQ/L (134-153)
[2023-08-13 15:00] LABS: ALBUMIN 2.7 G/DL (3.9-5.0); ALKALINE PHOSPHATASE 67 U/L (35-104); ALT/SGPT 34 U/L (1-33); AST/SGOT 30 U/L (5-40); BILIRUBIN,TOTAL < 0.7 MG/DL (0.2-1.3); CALCIUM LEVEL 8.3 MG/DL (8.4-10.2); TOTAL PROTEIN 4.9 G/DL (6.3-8.2)
[2023-08-13 15:01] LABS: MAGNESIUM LEVEL 2.5 MG/DL (1.7-2.2)
[2023-08-13] MEDS: MAG SULF 1GM/100ML (MAG RUN) 1 GM in IV 1 EA IV SCH ×2 (15:15→16:00)
[2023-08-13] MEDS: SCOPOLAMINE 1MG TRANSDERMAL PATCH TOP SCH (17:14)
[2023-08-13 19:30] VITALS: BP 150/93; TEMP 97.9; O2SAT 99
[2023-08-14] MEDS: SODIUM CHLORIDE 0.9% INJ 10 ML SYR IV SCH ×3 (05:28→18:10)
[2023-08-14 05:48] LABS: HEMATOCRIT 31.6 % (36.0-47.0); HEMOGLOBIN 10.6 g/dl (12.0-15.5); MEAN CORPUSCULAR HEMOGLOBIN 30.7 pg (27.0-33.0); MEAN CORPUSCULAR HGB CONC 33.5 g/dl (32.0-36.5); MEAN CORPUSCULAR VOLUME 91.6 fl (80.0-96.0); PLATELET COUNT, AUTOMATED 243 10^3/uL (150-450); RED BLOOD COUNT 3.45 10^6/uL (4.00-5.40); WHITE BLOOD COUNT 10.8 10^3/uL (4.0-10.0)
[2023-08-14 06:00] VITALS: BP 143/89; TEMP 97.9; O2SAT 98
[2023-08-14] MEDS: BISACODYL 10MG SUPP PR SCH ×4 (09:50→20:45)
[2023-08-14] MEDS: MAGNESIUM OXIDE 400MG TAB (MAG-OX) PO SCH ×3 (09:52→20:45)
[2023-08-14] MEDS: ENOXAPARIN 40MG/0.4ML SYRINGE (J1650 PER 10MG) SC SCH (09:52)
[2023-08-14] MEDS: CEFEPIME HCL 2 GM in D5W MINI-BAG PLUS 50 ML IV SCH ×2 (09:53→21:05)
[2023-08-14] MEDS: PANTOPRAZOLE 40MG VIAL IV SCH ×2 (09:53→20:44)
[2023-08-14] MEDS: NYSTATIN 500,000U/5ML SUSP UDC SS SCH ×3 (12:19→20:45)
[2023-08-14] MEDS: CHLORHEXIDINE GLUCONATE 0.12 % 15ML UDC (PERIDEX ORAL RINSE) SSP PRN (12:19)
[2023-08-14] MEDS: ONDANSETRON 4MG 2ML VIAL IV SCH ×2 (12:27→18:09)
[2023-08-14 14:00] VITALS: BP 136/86; TEMP 97.7; O2SAT 98
[2023-08-14] MEDS: SALIVA SUBSTITUTE(MOUTHKOTE) BTL MT PRN (18:28)
[2023-08-14] MEDS: BENZOCAINE 20% GEL 9GM TUBE (ANBESOL MAX STRENGTH) TOP PRN (18:29)
[2023-08-14 20:29] VITALS: BP 134/85; TEMP 97.4; O2SAT 98
[2023-08-14 22:16] LABS: BASO % 0.3 % (0.0-1.0); EOS % 0.1 % (0.0-3.0); LYMPH # 2.4 10^3/uL (1.5-5.0); LYMPH % 21.2 % (24.0-44.0); MONO # 1.1 10^3/uL (0.0-0.8); MONO % 9.9 % (2.0-8.0); NEUTROPHILS # 7.2 10^3/uL (1.5-8.5); NEUTROPHILS % 64.2 % (36.0-66.0)
[2023-08-15] MEDS: ONDANSETRON 4MG 2ML VIAL IV SCH ×2 (01:03→06:13)
[2023-08-15] MEDS: POLYVINYL ALCOHOL OPHTH SOLN 15ML (LIQUITEARS) OU PRN ×3 (01:41→20:12)
[2023-08-15 05:00] VITALS: BP 134/85; TEMP 97.3; O2SAT 98
[2023-08-15] MEDS: SODIUM CHLORIDE 0.9% INJ 10 ML SYR IV PRN ×3 (06:13→23:25)
[2023-08-15] MEDS: SODIUM CHLORIDE 0.9% INJ 10 ML SYR IV SCH ×2 (06:13→17:14)
[2023-08-15 06:42] LABS: HEMATOCRIT 32.1 % (36.0-47.0); HEMOGLOBIN 10.9 g/dl (12.0-15.5); MEAN CORPUSCULAR HEMOGLOBIN 31.5 pg (27.0-33.0); MEAN CORPUSCULAR VOLUME 92.8 fl (80.0-96.0); PLATELET COUNT, AUTOMATED 232 10^3/uL (150-450); RED BLOOD COUNT 3.46 10^6/uL (4.00-5.40); WHITE BLOOD COUNT 10.3 10^3/uL (4.0-10.0)
[2023-08-15 08:12] LABS: BASO % 0.3 % (0.0-1.0); EOS # 0.1 10^3/uL (0.0-0.5); EOS % 0.9 % (0.0-3.0); LYMPH # 2.9 10^3/uL (1.5-5.0); LYMPH % 27.3 % (24.0-44.0); MONO # 1.2 10^3/uL (0.0-0.8); MONO % 11.1 % (2.0-8.0)
[2023-08-15 08:15] LABS: PLATELET ESTIMATE NORMAL (NORMAL)
[2023-08-15] MEDS: NYSTATIN 500,000U/5ML SUSP UDC SS SCH ×4 (09:07→20:11)
[2023-08-15] MEDS: CEFEPIME HCL 2 GM in D5W MINI-BAG PLUS 50 ML IV SCH ×2 (09:07→22:19)
[2023-08-15] MEDS: BISACODYL 10MG SUPP PR SCH ×3 (09:08→20:09)
[2023-08-15] MEDS: ENOXAPARIN 40MG/0.4ML SYRINGE (J1650 PER 10MG) SC SCH (09:08)
[2023-08-15] MEDS: CHLORHEXIDINE GLUCONATE 0.12 % 15ML UDC (PERIDEX ORAL RINSE) SSP PRN (09:09)
[2023-08-15] MEDS: SALIVA SUBSTITUTE(MOUTHKOTE) BTL MT PRN ×3 (09:09→20:11)
[2023-08-15] MEDS: BENZOCAINE 20% GEL 9GM TUBE (ANBESOL MAX STRENGTH) TOP PRN ×2 (09:10→17:21)
[2023-08-15] MEDS: ONDANSETRON 4MG ORAL DISINTEGRATING TAB SL SCH ×4 (10:28→20:09)
[2023-08-15] MEDS: PANTOPRAZOLE 40MG TAB (PROTONIX) PO SCH ×2 (10:28→20:09)
[2023-08-15] MEDS: DICYCLOMINE 10 MG CAP PO SCH ×2 (12:41→17:12)
[2023-08-15] MEDS: SUCRALFATE SUSP 1GM/10ML UD PO SCH ×3 (12:41→20:11)
[2023-08-15 13:06] LABS: ALBUMIN 2.6 G/DL (3.9-5.0); ALKALINE PHOSPHATASE 62 U/L (35-104); ALT/SGPT 33 U/L (1-33); AST/SGOT 26 U/L (5-40); BILIRUBIN,TOTAL < 0.7 MG/DL (0.2-1.3); BLOOD UREA NITROGEN 13 MG/DL (7-21); CARBON DIOXIDE LEVEL 33 MEQ/L (22-30); CHLORIDE LEVEL 92 MEQ/L (98-107); CREATININE FOR GFR 0.4 MG/DL (0.7-1.5); GLOMERULAR FILTRATION RATE > 60.0 (>58); GLUCOSE, FASTING 88 MG/DL (70-99); MAGNESIUM LEVEL 2.6 MG/DL (1.7-2.2); POTASSIUM SERUM 3.9 MEQ/L (3.6-5.0); SODIUM LEVEL 134 MEQ/L (134-153); TOTAL PROTEIN 4.6 G/DL (6.3-8.2)
[2023-08-15 13:46] LABS: BLOOD UREA NITROGEN 30 MG/DL (7-21); CALCIUM LEVEL 8.2 MG/DL (8.4-10.2); CARBON DIOXIDE LEVEL 32 MEQ/L (22-30); CHLORIDE LEVEL 95 MEQ/L (98-107); CREATININE FOR GFR 0.4 MG/DL (0.7-1.5); GLOMERULAR FILTRATION RATE > 60.0 (>58); GLUCOSE, FASTING 86 MG/DL (70-99); POTASSIUM SERUM 4.1 MEQ/L (3.6-5.0); SODIUM LEVEL 135 MEQ/L (134-153)
[2023-08-15 13:47] LABS: ALBUMIN 2.7 G/DL (3.9-5.0); ALKALINE PHOSPHATASE 66 U/L (35-104); ALT/SGPT 35 U/L (1-33); AST/SGOT 21 U/L (5-40); BILIRUBIN,TOTAL < 0.7 MG/DL (0.2-1.3); MAGNESIUM LEVEL 2.3 MG/DL (1.7-2.2); TOTAL PROTEIN 4.7 G/DL (6.3-8.2)
[2023-08-15 14:00] VITALS: BP 108/84; TEMP 97.9; O2SAT 98
[2023-08-15] MEDS: FOLIC ACID 1 MG in NS 50 ML IV SCH (14:46)
[2023-08-15] MEDS ORDERED: LR 1,000 ML IV ONE (16:25)
[2023-08-15 19:44] VITALS: BP 113/82; TEMP 97.1; O2SAT 98
[2023-08-15] MEDS: DULoxetine 30MG CAPSULE (CYMBALTA) PO SCH (20:10)
[2023-08-15] MEDS: NYSTATIN CREAM 15GM TOP SCH (22:19)
[2023-08-16] MEDS: ONDANSETRON 4MG ORAL DISINTEGRATING TAB SL SCH ×6 (00:47→21:04)
[2023-08-16 01:30] VITALS: O2SAT 77
[2023-08-16 01:31] VITALS: O2SAT 97
[2023-08-16 05:51] LABS: HEMATOCRIT 31.6 % (36.0-47.0); HEMOGLOBIN 10.5 g/dl (12.0-15.5); MEAN CORPUSCULAR HEMOGLOBIN 30.9 pg (27.0-33.0); MEAN CORPUSCULAR HGB CONC 33.2 g/dl (32.0-36.5); MEAN CORPUSCULAR VOLUME 92.9 fl (80.0-96.0); PLATELET COUNT, AUTOMATED 196 10^3/uL (150-450); WHITE BLOOD COUNT 10.3 10^3/uL (4.0-10.0)
[2023-08-16] MEDS: SODIUM CHLORIDE 0.9% INJ 10 ML SYR IV PRN ×2 (05:56→23:22)
[2023-08-16] MEDS: SODIUM CHLORIDE 0.9% INJ 10 ML SYR IV SCH ×2 (05:56→17:18)
[2023-08-16 06:13] VITALS: BP 127/80; TEMP 97.7; O2SAT 97
[2023-08-16] MEDS: SUCRALFATE SUSP 1GM/10ML UD PO SCH ×4 (07:30→21:04)
[2023-08-16] MEDS: DICYCLOMINE 10 MG CAP PO SCH ×3 (07:30→17:16)
[2023-08-16] MEDS ORDERED: E-Z-GAS II EFFERVESCENT PACKET (SODIUM BICARB./CITRIC ACID/SIMETHICONE) As Ordered ONE (08:51)
[2023-08-16] MEDS ORDERED: E-Z-PAQUE 96% w/w SUSP 176GM BTL As Ordered ONE (08:51)
[2023-08-16] MEDS ORDERED: E-Z-HD 98% w/w 340GM SUSP BTL As Ordered ONE (08:51)
[2023-08-16] MEDS: BISACODYL 10MG SUPP PR SCH ×3 (08:54→21:04)
[2023-08-16] MEDS: PANTOPRAZOLE 40MG TAB (PROTONIX) PO SCH ×2 (09:49→21:04)
[2023-08-16] MEDS: NYSTATIN 500,000U/5ML SUSP UDC SS SCH ×4 (09:49→21:04)
[2023-08-16] MEDS: ENOXAPARIN 40MG/0.4ML SYRINGE (J1650 PER 10MG) SC SCH (09:50)
[2023-08-16] MEDS: NYSTATIN CREAM 15GM TOP SCH ×2 (09:52→21:05)
[2023-08-16] MEDS ORDERED: PROHANCE 279.3MG/ML 5ML VIAL As Ordered ONE (10:03)
[2023-08-16] MEDS ORDERED: PROHANCE 279.3MG/ML 15ML VIAL As Ordered ONE (10:03)
[2023-08-16] MEDS: LR 1,000 ML IV SCH ×2 (11:39→20:13)
[2023-08-16] MEDS: CEFEPIME HCL 2 GM in D5W MINI-BAG PLUS 50 ML IV SCH ×2 (11:39→22:47)
[2023-08-16 12:09] LABS: VITAMIN B12 LEVEL 816 PG/ML (232-1245)
[2023-08-16 13:57] VITALS: BP 118/80; TEMP 97.5; O2SAT 99
[2023-08-16] MEDS: FOLIC ACID 1 MG in NS 50 ML IV SCH (14:26)
[2023-08-16 16:04] LABS: BLOOD UREA NITROGEN 11 MG/DL (7-21); CARBON DIOXIDE LEVEL 28 MEQ/L (22-30); CHLORIDE LEVEL 97 MEQ/L (98-107); CREATININE FOR GFR 0.4 MG/DL (0.7-1.5); GLOMERULAR FILTRATION RATE > 60.0 (>58); GLUCOSE, FASTING 84 MG/DL (70-99); POTASSIUM SERUM 3.9 MEQ/L (3.6-5.0); SODIUM LEVEL 133 MEQ/L (134-153)
[2023-08-16 16:05] LABS: ALBUMIN 2.6 G/DL (3.9-5.0); ALKALINE PHOSPHATASE 67 U/L (35-104); ALT/SGPT 31 U/L (1-33); AST/SGOT 13 U/L (5-40); BILIRUBIN,TOTAL < 0.7 MG/DL (0.2-1.3); CALCIUM LEVEL 8.1 MG/DL (8.4-10.2); MAGNESIUM LEVEL 2.1 MG/DL (1.7-2.2); TOTAL PROTEIN 4.5 G/DL (6.3-8.2)
[2023-08-16] MEDS: SCOPOLAMINE 1MG TRANSDERMAL PATCH TOP SCH (17:16)
[2023-08-16] MEDS: DULoxetine 30MG CAPSULE (CYMBALTA) PO SCH (21:04)
[2023-08-16 22:00] VITALS: BP 128/82; TEMP 97.6; O2SAT 98
[2023-08-17] MEDS: ONDANSETRON 4MG ORAL DISINTEGRATING TAB SL SCH ×2 (00:58→05:26)
[2023-08-17] MEDS: SODIUM CHLORIDE 0.9% INJ 10 ML SYR IV SCH ×2 (05:26→15:50)
[2023-08-17] MEDS: LR 1,000 ML IV SCH (05:29)
[2023-08-17 05:35] VITALS: BP 126/80; TEMP 97.5; O2SAT 97
[2023-08-17 05:38] LABS: HEMATOCRIT 29.3 % (36.0-47.0); HEMOGLOBIN 9.8 g/dl (12.0-15.5); MEAN CORPUSCULAR HEMOGLOBIN 31.1 pg (27.0-33.0); MEAN CORPUSCULAR HGB CONC 33.4 g/dl (32.0-36.5); PLATELET COUNT, AUTOMATED 165 10^3/uL (150-450); RED BLOOD COUNT 3.15 10^6/uL (4.00-5.40); WHITE BLOOD COUNT 8.7 10^3/uL (4.0-10.0)
[2023-08-17] MEDS: PANTOPRAZOLE 40MG TAB (PROTONIX) PO SCH ×2 (07:56→20:54)
[2023-08-17] MEDS: DICYCLOMINE 10 MG CAP PO SCH ×3 (07:56→16:30)
[2023-08-17] MEDS: ENOXAPARIN 40MG/0.4ML SYRINGE (J1650 PER 10MG) SC SCH (07:57)
[2023-08-17] MEDS: NYSTATIN 500,000U/5ML SUSP UDC SS SCH ×4 (07:57→20:54)
[2023-08-17] MEDS: BISACODYL 10MG SUPP PR SCH ×3 (07:57→20:53)
[2023-08-17] MEDS: SUCRALFATE SUSP 1GM/10ML UD PO SCH ×4 (07:57→20:54)
[2023-08-17] MEDS: NYSTATIN CREAM 15GM TOP SCH ×2 (08:03→20:55)
[2023-08-17 08:15] VITALS: BP 132/78; TEMP 97.3; O2SAT 96
[2023-08-17 13:49] VITALS: BP 129/76; TEMP 97.7; O2SAT 94
[2023-08-17] MEDS: FOLIC ACID 1 MG in NS 50 ML IV SCH (14:16)
[2023-08-17 20:00] VITALS: BP 141/84; TEMP 98.1; O2SAT 94
[2023-08-17] MEDS: DULoxetine 30MG CAPSULE (CYMBALTA) PO SCH (20:54)
[2023-08-18] MEDS: SODIUM CHLORIDE 0.9% INJ 10 ML SYR IV SCH ×2 (04:55→17:12)
[2023-08-18 05:25] LABS: HEMATOCRIT 30.2 % (36.0-47.0); MEAN CORPUSCULAR HEMOGLOBIN 31.3 pg (27.0-33.0); MEAN CORPUSCULAR HGB CONC 33.1 g/dl (32.0-36.5); MEAN CORPUSCULAR VOLUME 94.4 fl (80.0-96.0); PLATELET COUNT, AUTOMATED 165 10^3/uL (150-450); WHITE BLOOD COUNT 9.5 10^3/uL (4.0-10.0)
[2023-08-18 06:00] VITALS: BP 137/84; TEMP 97.5; O2SAT 95
[2023-08-18] MEDS: PANTOPRAZOLE 40MG TAB (PROTONIX) PO SCH ×2 (08:11→20:11)
[2023-08-18] MEDS: SUCRALFATE SUSP 1GM/10ML UD PO SCH ×4 (08:11→20:11)
[2023-08-18] MEDS: BISACODYL 10MG SUPP PR SCH ×3 (08:11→20:12)
[2023-08-18] MEDS: ENOXAPARIN 40MG/0.4ML SYRINGE (J1650 PER 10MG) SC SCH (08:11)
[2023-08-18] MEDS: NYSTATIN 500,000U/5ML SUSP UDC SS SCH ×4 (08:11→20:11)
[2023-08-18] MEDS: DICYCLOMINE 10 MG CAP PO SCH ×3 (08:11→17:12)
[2023-08-18] MEDS: NYSTATIN CREAM 15GM TOP SCH ×2 (08:11→20:24)
[2023-08-18] MEDS: CHLORHEXIDINE GLUCONATE 0.12 % 15ML UDC (PERIDEX ORAL RINSE) SSP PRN (08:23)
[2023-08-18 14:00] VITALS: BP 138/80; TEMP 97.2; O2SAT 95
[2023-08-18] MEDS: FOLIC ACID 1 MG in NS 50 ML IV SCH (14:10)
[2023-08-18 20:00] VITALS: BP 140/88; TEMP 97.5; O2SAT 94
[2023-08-18] MEDS: DULoxetine 30MG CAPSULE (CYMBALTA) PO SCH (20:11)
[2023-08-19] MEDS: SODIUM CHLORIDE 0.9% INJ 10 ML SYR IV SCH (05:14)
[2023-08-19 06:00] VITALS: BP 140/88; TEMP 97.5; O2SAT 92
[2023-08-19] MEDS: PANTOPRAZOLE 40MG TAB (PROTONIX) PO SCH ×2 (08:00→20:47)
[2023-08-19] MEDS: ENOXAPARIN 40MG/0.4ML SYRINGE (J1650 PER 10MG) SC SCH (08:00)
[2023-08-19] MEDS: NYSTATIN 500,000U/5ML SUSP UDC SS SCH ×4 (08:00→20:48)
[2023-08-19] MEDS: SUCRALFATE SUSP 1GM/10ML UD PO SCH ×4 (08:00→20:48)
[2023-08-19] MEDS: SALIVA SUBSTITUTE(MOUTHKOTE) BTL MT PRN (08:00)
[2023-08-19] MEDS: DICYCLOMINE 10 MG CAP PO SCH ×3 (08:00→17:23)
[2023-08-19] MEDS: BISACODYL 10MG SUPP PR SCH ×3 (08:01→20:48)
[2023-08-19] MEDS: NYSTATIN CREAM 15GM TOP SCH ×2 (08:01→20:48)
[2023-08-19] MEDS ORDERED: FOLI800C PO (08:02)
[2023-08-19 11:00] VITALS: O2SAT 98
[2023-08-19 13:31] VITALS: BP 128/82; TEMP 97.3; O2SAT 98
[2023-08-19] MEDS: FOLIC ACID 1MG TAB PO SCH ×2 (16:03→17:23)
[2023-08-19] MEDS: SCOPOLAMINE 1MG TRANSDERMAL PATCH TOP SCH (17:23)
[2023-08-19] MEDS: DULoxetine 30MG CAPSULE (CYMBALTA) PO SCH (20:48)
[2023-08-20 06:00] VITALS: BP 115/70; TEMP 97.5; O2SAT 94
[2023-08-20] MEDS: ENOXAPARIN 40MG/0.4ML SYRINGE (J1650 PER 10MG) SC SCH (08:07)
[2023-08-20] MEDS: DICYCLOMINE 10 MG CAP PO SCH (08:07)
[2023-08-20] MEDS: NYSTATIN 500,000U/5ML SUSP UDC SS SCH (08:08)
[2023-08-20] MEDS: SUCRALFATE SUSP 1GM/10ML UD PO SCH (08:08)
[2023-08-20] MEDS: PANTOPRAZOLE 40MG TAB (PROTONIX) PO SCH (08:08)
[2023-08-20] MEDS: NYSTATIN CREAM 15GM TOP SCH (08:09)
[2023-08-20] MEDS: BISACODYL 10MG SUPP PR SCH (08:09)
== END 2023-08-20 12:32 | DRG 249 ==
LOC: M ED 07:41 → EDBD 07:41 → M ED INP 14:33 → M MSPAV 16:26
PROVIDERS: ADMIT Student in an Organized Health Care Education/Training Program; ATTEND Student in an Organized Health Care Education/Training Program
DX: K52.9 Noninfective gastroenteritis and colitis, unspecified (principal); L89.152 Pressure ulcer of sacral region, stage 2; I50.32 Chronic diastolic (congestive) heart failure; E87.20 Acidosis, unspecified; R13.10 Dysphagia, unspecified; E83.42 Hypomagnesemia; K76.0 Fatty (change of) liver, not elsewhere classified; M79.7 Fibromyalgia; F41.9 Anxiety disorder, unspecified; F32.A Depression, unspecified; K21.9 Gastro-esophageal reflux disease without esophagitis; E66.9 Obesity, unspecified; D64.9 Anemia, unspecified; G47.33 Obstructive sleep apnea (adult) (pediatric); E87.6 Hypokalemia; G47.00 Insomnia, unspecified; I95.1 Orthostatic hypotension; M62.81 Muscle weakness (generalized); G89.29 Other chronic pain; R94.31 Abnormal electrocardiogram [ECG] [EKG]; Z68.34 Body mass index [BMI] 34.0-34.9, adult; N39.0 Urinary tract infection, site not specified; B96.5 Pseudomonas (aeruginosa) (mallei) (pseudomallei) as the cause of diseases classified elsewhere; E53.8 Deficiency of other specified B group vitamins; Z74.01 Bed confinement status; Z79.899 Other long term (current) drug therapy; Z87.442 Personal history of urinary calculi; Z86.16 Personal history of COVID-19

== ENCOUNTER 2024-01-27 13:29 | Inpatient (IN) | payer OTHER ==
[~2024-01-27] VITALS: Ht 157.5 cm; Wt 78.6 kg
[~2024-01-27 13:29] MED LIST changes: +CEFD1CAP9 PO; -CEFD300C42 PO; +DICY20TA20 PO; -FLUT50SP17 NARES; +FLUTISP NARES; +FOLI800C PO
[2024-01-27] MEDS: MORPHINE 2 MG/ML 1ML VIAL IV ONE (14:10)
[2024-01-27] MEDS: NS 1,000 ML IV ONE (14:10)
[2024-01-27 14:21] LABS: BASO % 0.5 % (0.0-1.0); EOS % 0.2 % (0.0-3.0); HEMATOCRIT 26.6 % (36.0-47.0); HEMOGLOBIN 8.9 g/dl (12.0-15.5); LYMPH # 2.1 10^3/uL (1.5-5.0); LYMPH % 24.5 % (24.0-44.0); MEAN CORPUSCULAR HEMOGLOBIN 26.6 pg (27.0-33.0); MEAN CORPUSCULAR HGB CONC 33.5 g/dl (32.0-36.5); MEAN CORPUSCULAR VOLUME 79.6 fl (80.0-96.0); MONO # 0.6 10^3/uL (0.0-0.8); MONO % 6.9 % (2.0-8.0); NEUTROPHILS # 5.9 10^3/uL (1.5-8.5); NEUTROPHILS % 67.1 % (36.0-66.0); PLATELET COUNT, AUTOMATED 384 10^3/uL (150-450); RED BLOOD COUNT 3.34 10^6/uL (4.00-5.40); WHITE BLOOD COUNT 8.7 10^3/uL (4.0-10.0)
[2024-01-27 14:35] LABS: INR 1.08; PROTHROMBIN TIME 13.6 SECONDS (12.5-14.5)
[2024-01-27 14:41] LABS: CK-MB VALUE MASS < 1.0 NG/ML (<3.6); LIPASE 11 U/L (12-53)
[2024-01-27 14:42] LABS: C REACTIVE PROTEIN QUANTITATIV < 0.40 MG/DL (<1.0)
[2024-01-27 14:43] LABS: CPK CREATINE PHOSPHOKINASE 31 U/L (34-145); MB/CK RELATIVE INDEX 3.22 (< OR =4)
[2024-01-27 14:58] LABS: ALBUMIN 1.7 G/DL (3.2-5.2); ALKALINE PHOSPHATASE 102 U/L (46-116); ALT/SGPT 24 U/L (7.0-40); AST/SGOT 36 U/L (<34); BILIRUBIN,DIRECT 0.4 MG/DL (<0.4); BILIRUBIN,TOTAL 0.7 MG/DL (0.3-1.2); BLOOD UREA NITROGEN 16 MG/DL (9-23); CALCIUM LEVEL 7.5 MG/DL (8.5-10.1); CARBON DIOXIDE LEVEL 36 MMOL/L (20-31); CHLORIDE LEVEL 94 MMOL/L (98-107); CREATININE FOR GFR 0.48 MG/DL (0.55-1.30); GLOMERULAR FILTRATION RATE > 60.0 (>58); GLUCOSE, FASTING 84 MG/DL (60-100); MAGNESIUM LEVEL 1.1 MG/DL (1.8-2.4); POTASSIUM SERUM 2.4 MMOL/L (3.5-5.1); SODIUM LEVEL 138 MMOL/L (136-145); TOTAL PROTEIN 4.9 G/DL (5.7-8.2)
[2024-01-27] MEDS ORDERED: ISOVUE-370 76% 100ML VIAL As Ordered ONE (15:00)
[2024-01-27] MEDS: PROMETHAZINE 25MG/ML 1ML VIAL IM ONE (15:17)
[2024-01-27] MEDS: KCL 20MEQ in NS 1000ML 1,000 ML IV SCH (16:05)
[2024-01-27] MEDS: KCL 10MEQ/100ML SWI (KRUN) 10 MEQ in IV 1 EA IV SCH (16:36)
[2024-01-27] MEDS: MAG SULF 1GM/100ML (MAG RUN) 1 GM in IV 1 EA IV SCH ×2 (16:37→21:07)
[2024-01-27] MEDS ORDERED: D5W/LR 1,000 ML IV SCH (17:55)
[2024-01-27] MEDS ORDERED: ACETAMINOPHEN TAB 650MG DOSE (2X325MG) PO PRN (17:55)
[2024-01-27] MEDS ORDERED: MOM 30ML SUSPENSION UDC PO PRN (17:55)
[2024-01-27] MEDS ORDERED: METOCLOPRAMIDE INJ 10MG/2ML VIAL IV SCH (18:00)
[2024-01-27 18:23] LABS: IRON (FE) 65 UG/DL (50-170); PERCENT SATURATION 53.7 % (13.2-45.0); PHOSPHORUS LEVEL 3.2 MG/DL (2.5-4.9); TOTAL IRON BINDING CAPACITY 121 UG/DL (250-425)
[2024-01-27 18:26] LABS: FERRITIN 351.1 NG/ML (7.3-270.7); FOLATE 12.33 NG/ML (>5.4)
[2024-01-27 18:31] LABS: VITAMIN B12 LEVEL 988 PG/ML (211-911)
[2024-01-27] MEDS ORDERED: PANT40TA29 PO (18:54)
[2024-01-27] MEDS ORDERED: METO1TAB87 PO (18:55)
[2024-01-27] MEDS ORDERED: HOME MED LIST COMPLETE! XX SCH (19:00)
[2024-01-27] MEDS: POTASSIUM CHLORIDE 10% LIQ 20MEQ/15ML UDC PO ONE (19:29)
[2024-01-27] MEDS: SCOPOLAMINE 1MG TRANSDERMAL PATCH TOP SCH (19:31)
[2024-01-27 20:56] LABS: ALBUMIN 1.6 G/DL (3.2-5.2); BLOOD UREA NITROGEN 13 MG/DL (9-23); CALCIUM LEVEL 7.2 MG/DL (8.5-10.1); CARBON DIOXIDE LEVEL 34 MMOL/L (20-31); CHLORIDE LEVEL 96 MMOL/L (98-107); CREATININE FOR GFR 0.42 MG/DL (0.55-1.30); GLOMERULAR FILTRATION RATE > 60.0 (>58); GLUCOSE, FASTING 86 MG/DL (60-100); PHOSPHORUS LEVEL 2.9 MG/DL (2.5-4.9); POTASSIUM SERUM 2.9 MMOL/L (3.5-5.1); SODIUM LEVEL 137 MMOL/L (136-145)
[2024-01-27 21:39] VITALS: BP 99/60; TEMP 98.1; O2SAT 98
[2024-01-27] MEDS: METOCLOPRAMIDE INJ 10MG/2ML VIAL IV SCH (22:14)
[2024-01-27 22:40] VITALS: BP 102/54
[2024-01-27] MEDS: DOCUSATE SODIUM 100MG CAPSULE PO SCH (22:49)
[2024-01-28] MEDS: MORPHINE 4 MG/ML 1ML VIAL IV ONE (00:52)
[2024-01-28 05:00] VITALS: O2SAT 52
[2024-01-28] MEDS: HEPARIN SOD (PORCINE) 5000UNITS/ML 1ML VIAL/SYRINGE SC SCH (05:06)
[2024-01-28 05:09] VITALS: BP 116/68; TEMP 97.9; O2SAT 99
[2024-01-28 07:40] LABS: HEMATOCRIT 22.7 % (36.0-47.0); HEMOGLOBIN 7.5 g/dl (12.0-15.5); MEAN CORPUSCULAR HEMOGLOBIN 26.8 pg (27.0-33.0); MEAN CORPUSCULAR VOLUME 81.1 fl (80.0-96.0); WHITE BLOOD COUNT 5.6 10^3/uL (4.0-10.0)
[2024-01-28 07:42] LABS: PLATELET COUNT, AUTOMATED 282 10^3/uL (150-450)
[2024-01-28 08:02] LABS: ALBUMIN 1.2 G/DL (3.2-5.2); BLOOD UREA NITROGEN 11 MG/DL (9-23); CARBON DIOXIDE LEVEL 33 MMOL/L (20-31); CHLORIDE LEVEL 100 MMOL/L (98-107); CREATININE FOR GFR 0.41 MG/DL (0.55-1.30); GLOMERULAR FILTRATION RATE > 60.0 (>58); GLUCOSE, FASTING 80 MG/DL (60-100); MAGNESIUM LEVEL 2.8 MG/DL (1.8-2.4); PHOSPHORUS LEVEL 2.9 MG/DL (2.5-4.9); POTASSIUM SERUM 2.8 MMOL/L (3.5-5.1); SODIUM LEVEL 134 MMOL/L (136-145)
[2024-01-28] MEDS: POTASSIUM CHLORIDE 10% LIQ 20MEQ/15ML UDC PO ONE ×2 (08:29→15:47)
[2024-01-28] MEDS: KCL 10MEQ/100ML SWI (KRUN) 10 MEQ in IV 1 EA IV SCH (08:30)
[2024-01-28] MEDS: PROCHLORPERAZINE 10MG 2ML VIAL IV PRN (09:49)
[2024-01-28 14:00] VITALS: BP 101/78; TEMP 97.5; O2SAT 98
[2024-01-28] MEDS: NYSTATIN 100,000 UNITS/GM TOPICAL PWD 15GM TOP SCH (20:54)
[2024-01-28 21:40] VITALS: BP 101/74; TEMP 97.5; O2SAT 96
[2024-01-29] VITALS (9 sets, daily range): BP systolic 95–109; BP diastolic 55–71; TEMP 97.5–98.9; O2SAT 95–100
[2024-01-29 06:47] LABS: HEMATOCRIT 21.4 % (36.0-47.0); MEAN CORPUSCULAR HEMOGLOBIN 26.1 pg (27.0-33.0); MEAN CORPUSCULAR HGB CONC 31.8 g/dl (32.0-36.5); PLATELET COUNT, AUTOMATED 282 10^3/uL (150-450); RED BLOOD COUNT 2.61 10^6/uL (4.00-5.40); WHITE BLOOD COUNT 5.5 10^3/uL (4.0-10.0)
[2024-01-29 06:54] LABS: HEMOGLOBIN 6.8 g/dl (12.0-15.5)
[2024-01-29 07:08] LABS: BLOOD UREA NITROGEN 9 MG/DL (9-23); CALCIUM LEVEL 6.9 MG/DL (8.5-10.1); CARBON DIOXIDE LEVEL 29 MMOL/L (20-31); CHLORIDE LEVEL 105 MMOL/L (98-107); GLOMERULAR FILTRATION RATE > 60.0 (>58); GLUCOSE, FASTING 79 MG/DL (60-100); MAGNESIUM LEVEL 2.2 MG/DL (1.8-2.4); POTASSIUM SERUM 5.1 MMOL/L (3.5-5.1); SODIUM LEVEL 135 MMOL/L (136-145)
[2024-01-29] MEDS: METOCLOPRAMIDE INJ 10MG/2ML VIAL IV SCH (15:25)
[2024-01-29 15:32] LABS: HEMATOCRIT 32.9 % (36.0-47.0); MEAN CORPUSCULAR HEMOGLOBIN 26.8 pg (27.0-33.0); MEAN CORPUSCULAR HGB CONC 33.4 g/dl (32.0-36.5); PLATELET COUNT, AUTOMATED 310 10^3/uL (150-450); RED BLOOD COUNT 4.11 10^6/uL (4.00-5.40); WHITE BLOOD COUNT 7.1 10^3/uL (4.0-10.0)
[2024-01-29 15:54] LABS: HEMOGLOBIN A1c 4.7 % (4.0-6.0)
[2024-01-29 15:57] LABS: BLOOD UREA NITROGEN 8 MG/DL (9-23); CALCIUM LEVEL 7.4 MG/DL (8.5-10.1); CARBON DIOXIDE LEVEL 28 MMOL/L (20-31); CHLORIDE LEVEL 105 MMOL/L (98-107); CREATININE FOR GFR 0.39 MG/DL (0.55-1.30); GLOMERULAR FILTRATION RATE > 60.0 (>58); GLUCOSE, FASTING 95 MG/DL (60-100); POTASSIUM SERUM 4.8 MMOL/L (3.5-5.1); SODIUM LEVEL 133 MMOL/L (136-145)
[2024-01-30 05:00] VITALS: BP 111/68; TEMP 97.5; O2SAT 96
[2024-01-30 07:03] LABS: HEMATOCRIT 30.4 % (36.0-47.0); HEMOGLOBIN 10.3 g/dl (12.0-15.5); MEAN CORPUSCULAR HGB CONC 33.9 g/dl (32.0-36.5); MEAN CORPUSCULAR VOLUME 79.6 fl (80.0-96.0); PLATELET COUNT, AUTOMATED 310 10^3/uL (150-450); RED BLOOD COUNT 3.82 10^6/uL (4.00-5.40); WHITE BLOOD COUNT 6.2 10^3/uL (4.0-10.0)
[2024-01-30 07:23] LABS: BLOOD UREA NITROGEN 11 MG/DL (9-23); CALCIUM LEVEL 7.5 MG/DL (8.5-10.1); CARBON DIOXIDE LEVEL 28 MMOL/L (20-31); CHLORIDE LEVEL 103 MMOL/L (98-107); CREATININE FOR GFR 0.42 MG/DL (0.55-1.30); GLOMERULAR FILTRATION RATE > 60.0 (>58); GLUCOSE, FASTING 97 MG/DL (60-100); MAGNESIUM LEVEL 1.9 MG/DL (1.8-2.4); POTASSIUM SERUM 4.8 MMOL/L (3.5-5.1); SODIUM LEVEL 135 MMOL/L (136-145)
[2024-01-30 14:00] VITALS: BP 113/69; TEMP 97.7; O2SAT 97
[2024-01-30 20:24] VITALS: BP 115/71; TEMP 97.3; O2SAT 98
[2024-01-30] MEDS: DULoxetine 30MG CAPSULE (CYMBALTA) PO SCH (21:17)
[2024-01-30] MEDS: HEPARIN SOD (PORCINE) 5000UNITS/ML 1ML VIAL/SYRINGE SQ SCH (21:17)
[2024-01-31 05:02] VITALS: BP 118/77; TEMP 97.5; O2SAT 99
[2024-01-31 05:13] LABS: HEMATOCRIT 32.9 % (36.0-47.0); MEAN CORPUSCULAR HEMOGLOBIN 26.6 pg (27.0-33.0); MEAN CORPUSCULAR HGB CONC 33.4 g/dl (32.0-36.5); MEAN CORPUSCULAR VOLUME 79.5 fl (80.0-96.0); PLATELET COUNT, AUTOMATED 402 10^3/uL (150-450); RED BLOOD COUNT 4.14 10^6/uL (4.00-5.40); WHITE BLOOD COUNT 7.3 10^3/uL (4.0-10.0)
[2024-01-31 05:35] LABS: BLOOD UREA NITROGEN 16 MG/DL (9-23); CARBON DIOXIDE LEVEL 17 MMOL/L (20-31); CHLORIDE LEVEL 102 MMOL/L (98-107); CREATININE FOR GFR 0.48 MG/DL (0.55-1.30); GLOMERULAR FILTRATION RATE > 60.0 (>58); GLUCOSE, FASTING 126 MG/DL (60-100); MAGNESIUM LEVEL 1.7 MG/DL (1.8-2.4); POTASSIUM SERUM 4.4 MMOL/L (3.5-5.1); SODIUM LEVEL 137 MMOL/L (136-145)
[2024-01-31] MEDS: LR 1,000 ML IV ONE (07:25)
[2024-01-31] MEDS: D5W/LR 1,000 ML IV SCH (08:59)
[2024-01-31] MEDS: PANTOPRAZOLE 40MG VIAL IV SCH (09:00)
[2024-01-31] MEDS: MAG SULF 1GM/100ML (MAG RUN) 1 GM in IV 1 EA IV SCH (09:02)
[2024-01-31] MEDS: METOPROLOL TART 25 MG TABLET PO SCH (09:04)
[2024-01-31] MEDS: SUCRALFATE SUSP 1GM/10ML UD PO SCH (11:50)
[2024-01-31] MEDS: SODIUM PHOSPHATE INJ 20 MMOL in D5W 250 ML IV ONE (13:16)
[2024-01-31 14:00] VITALS: BP 127/72; TEMP 97.9; O2SAT 98
[2024-01-31 14:32] LABS: BLOOD UREA NITROGEN 14 MG/DL (9-23); CALCIUM LEVEL 8.2 MG/DL (8.5-10.1); CARBON DIOXIDE LEVEL 19 MMOL/L (20-31); CHLORIDE LEVEL 103 MMOL/L (98-107); CREATININE FOR GFR 0.48 MG/DL (0.55-1.30); GLOMERULAR FILTRATION RATE > 60.0 (>58); GLUCOSE, FASTING 149 MG/DL (60-100); POTASSIUM SERUM 3.5 MMOL/L (3.5-5.1); SODIUM LEVEL 136 MMOL/L (136-145)
[2024-01-31] MEDS: POTASSIUM CHLORIDE 10% LIQ 20MEQ/15ML UDC PO ONE (16:40)
[2024-01-31 19:41] VITALS: BP 125/72; TEMP 98.4; O2SAT 100
[2024-02-01 04:10] VITALS: BP 131/73; TEMP 97.9; O2SAT 100
[2024-02-01 07:07] LABS: HEMATOCRIT 28.4 % (36.0-47.0); HEMOGLOBIN 9.9 g/dl (12.0-15.5); MEAN CORPUSCULAR HEMOGLOBIN 26.4 pg (27.0-33.0); MEAN CORPUSCULAR HGB CONC 34.9 g/dl (32.0-36.5); MEAN CORPUSCULAR VOLUME 75.7 fl (80.0-96.0); PLATELET COUNT, AUTOMATED 351 10^3/uL (150-450); RED BLOOD COUNT 3.75 10^6/uL (4.00-5.40); WHITE BLOOD COUNT 10.1 10^3/uL (4.0-10.0)
[2024-02-01 07:26] LABS: MAGNESIUM LEVEL 1.6 MG/DL (1.8-2.4)
[2024-02-01 07:42] LABS: BLOOD UREA NITROGEN 15 MG/DL (9-23); CARBON DIOXIDE LEVEL 21 MMOL/L (20-31); CHLORIDE LEVEL 103 MMOL/L (98-107); CREATININE FOR GFR 0.54 MG/DL (0.55-1.30); GLOMERULAR FILTRATION RATE > 60.0 (>58); GLUCOSE, FASTING 105 MG/DL (60-100); POTASSIUM SERUM 2.7 MMOL/L (3.5-5.1); SODIUM LEVEL 137 MMOL/L (136-145)
[2024-02-01 08:02] LABS: PHOSPHORUS LEVEL 2.7 MG/DL (2.5-4.9)
[2024-02-01] MEDS: ONDANSETRON 4MG 2ML VIAL IV PRN (08:11)
[2024-02-01] MEDS: MAG SULF 1GM/100ML (MAG RUN) 1 GM in IV 1 EA IV SCH (08:11)
[2024-02-01] MEDS: KCL 10MEQ/100ML SWI (KRUN) 10 MEQ in IV 1 EA IV SCH ×2 (08:53→16:16)
[2024-02-01] MEDS: POTASSIUM CHLORIDE 10% LIQ 20MEQ/15ML UDC PO ONE ×2 (09:00→12:24)
[2024-02-01 14:00] VITALS: BP 134/75; TEMP 97.7; O2SAT 99
[2024-02-01] MEDS: METOCLOPRAMIDE INJ 10MG/2ML VIAL IV SCH (14:18)
[2024-02-01] MEDS: KCL 20MEQ IN D5/0.45NS 1000ML 1,000 ML IV SCH (16:16)
[2024-02-01 19:31] VITALS: BP 151/87; TEMP 97.9; O2SAT 97
[2024-02-02] VITALS (9 sets, daily range): BP systolic 119–146; BP diastolic 66–83; TEMP 97.2–98.1; O2SAT 94–98
[2024-02-02 06:25] LABS: HEMATOCRIT 28.3 % (36.0-47.0); HEMOGLOBIN 9.5 g/dl (12.0-15.5); MEAN CORPUSCULAR HEMOGLOBIN 26.5 pg (27.0-33.0); MEAN CORPUSCULAR HGB CONC 33.6 g/dl (32.0-36.5); MEAN CORPUSCULAR VOLUME 79.1 fl (80.0-96.0); PLATELET COUNT, AUTOMATED 270 10^3/uL (150-450); RED BLOOD COUNT 3.58 10^6/uL (4.00-5.40); WHITE BLOOD COUNT 6.5 10^3/uL (4.0-10.0)
[2024-02-02 06:51] LABS: BLOOD UREA NITROGEN 12 MG/DL (9-23); CALCIUM LEVEL 7.6 MG/DL (8.5-10.1); CARBON DIOXIDE LEVEL 21 MMOL/L (20-31); CHLORIDE LEVEL 105 MMOL/L (98-107); CREATININE FOR GFR 0.51 MG/DL (0.55-1.30); GLOMERULAR FILTRATION RATE > 60.0 (>58); GLUCOSE, FASTING 99 MG/DL (60-100); MAGNESIUM LEVEL 2.1 MG/DL (1.8-2.4); POTASSIUM SERUM 3.8 MMOL/L (3.5-5.1); SODIUM LEVEL 135 MMOL/L (136-145)
[2024-02-02] MEDS ORDERED: fentaNYL 100 MCG/2 ML INJECTION As Ordered ONE (15:34)
[2024-02-02 20:07] LABS: COPPER PLASMA 49 ug/dL (80-158)
[2024-02-03 01:15] VITALS: BP 142/82; TEMP 97.5; O2SAT 99
[2024-02-03 05:15] VITALS: BP 144/82; TEMP 97.5; O2SAT 97
[2024-02-03 06:51] LABS: BASO % 0.4 % (0.0-1.0); EOS # 0.2 10^3/uL (0.0-0.5); EOS % 1.9 % (0.0-3.0); HEMATOCRIT 34.5 % (36.0-47.0); HEMOGLOBIN 11.4 g/dl (12.0-15.5); LYMPH # 2.4 10^3/uL (1.5-5.0); LYMPH % 30.2 % (24.0-44.0); MEAN CORPUSCULAR HEMOGLOBIN 26.9 pg (27.0-33.0); MEAN CORPUSCULAR VOLUME 81.4 fl (80.0-96.0); MONO # 0.8 10^3/uL (0.0-0.8); MONO % 10.4 % (2.0-8.0); NEUTROPHILS # 4.4 10^3/uL (1.5-8.5); NEUTROPHILS % 55.8 % (36.0-66.0); PLATELET COUNT, AUTOMATED 253 10^3/uL (150-450); RED BLOOD COUNT 4.24 10^6/uL (4.00-5.40); WHITE BLOOD COUNT 7.9 10^3/uL (4.0-10.0)
[2024-02-03 07:08] LABS: BLOOD UREA NITROGEN 9 MG/DL (9-23); CALCIUM LEVEL 7.4 MG/DL (8.5-10.1); CARBON DIOXIDE LEVEL 21 MMOL/L (20-31); CHLORIDE LEVEL 101 MMOL/L (98-107); CREATININE FOR GFR 0.44 MG/DL (0.55-1.30); GLOMERULAR FILTRATION RATE > 60.0 (>58); GLUCOSE, FASTING 91 MG/DL (60-100); MAGNESIUM LEVEL 1.6 MG/DL (1.8-2.4); POTASSIUM SERUM 4.2 MMOL/L (3.5-5.1); SODIUM LEVEL 130 MMOL/L (136-145)
[2024-02-03 10:00] VITALS: BP 133/83; TEMP 97.5; O2SAT 96
[2024-02-03] MEDS: MAG SULF 1GM/100ML (MAG RUN) 1 GM in IV 1 EA IV SCH (12:04)
[2024-02-03] MEDS: FUROSEMIDE 20MG/2ML VIAL IV ONE (12:04)
[2024-02-03 14:00] VITALS: BP 98/63; TEMP 97.5; O2SAT 98
[2024-02-03] MEDS: SODIUM CHLORIDE 0.9% 1000ML IV ONE (18:31)
[2024-02-03] MEDS: MIDODRINE 5 MG TAB PO ONE (18:31)
[2024-02-03 19:05] VITALS: BP 112/67
[2024-02-03 20:00] VITALS: BP 108/66; TEMP 97.5; O2SAT 95
[2024-02-04] MEDS: LR 1,000 ML IV ONE (04:53)
[2024-02-04 05:29] VITALS: BP 126/74; TEMP 97; O2SAT 93
[2024-02-04 06:09] VITALS: BP 94/65
[2024-02-04 07:31] LABS: BASO # 0.1 10^3/uL (0.0-0.2); BASO % 0.7 % (0.0-1.0); EOS # 0.1 10^3/uL (0.0-0.5); EOS % 1.4 % (0.0-3.0); HEMATOCRIT 30.5 % (36.0-47.0); HEMOGLOBIN 10.3 g/dl (12.0-15.5); LYMPH # 2.6 10^3/uL (1.5-5.0); MEAN CORPUSCULAR HGB CONC 33.8 g/dl (32.0-36.5); MEAN CORPUSCULAR VOLUME 80.1 fl (80.0-96.0); MONO # 0.5 10^3/uL (0.0-0.8); MONO % 7.1 % (2.0-8.0); NEUTROPHILS # 4.3 10^3/uL (1.5-8.5); NEUTROPHILS % 55.9 % (36.0-66.0); PLATELET COUNT, AUTOMATED 231 10^3/uL (150-450); RED BLOOD COUNT 3.81 10^6/uL (4.00-5.40); WHITE BLOOD COUNT 7.7 10^3/uL (4.0-10.0)
[2024-02-04 07:50] LABS: BLOOD UREA NITROGEN < 5 MG/DL (9-23); CALCIUM LEVEL 7.6 MG/DL (8.5-10.1); CARBON DIOXIDE LEVEL 24 MMOL/L (20-31); CHLORIDE LEVEL 101 MMOL/L (98-107); CREATININE FOR GFR 0.48 MG/DL (0.55-1.30); GLOMERULAR FILTRATION RATE > 60.0 (>58); GLUCOSE, FASTING 75 MG/DL (60-100); MAGNESIUM LEVEL 1.8 MG/DL (1.8-2.4); POTASSIUM SERUM 3.4 MMOL/L (3.5-5.1); SODIUM LEVEL 132 MMOL/L (136-145)
[2024-02-04] MEDS: MIDODRINE 5 MG TAB PO SCH (08:58)
[2024-02-04 09:00] VITALS: BP 92/61
[2024-02-04 11:26] VITALS: BP 94/61
[2024-02-04] MEDS: MAG SULF 1GM/100ML (MAG RUN) 1 GM in IV 1 EA IV ONE (12:50)
[2024-02-04] MEDS: KCL 10MEQ/100ML SWI (KRUN) 10 MEQ in IV 1 EA IV SCH (13:56)
[2024-02-04 14:00] VITALS: BP 90/65; TEMP 97.3; O2SAT 97
[2024-02-04 21:00] VITALS: BP 95/62; TEMP 97.9; O2SAT 96
[2024-02-05 05:13] VITALS: BP 96/62; TEMP 97; O2SAT 98
[2024-02-05 06:24] LABS: BASO # 0.1 10^3/uL (0.0-0.2); BASO % 0.9 % (0.0-1.0); EOS # 0.1 10^3/uL (0.0-0.5); EOS % 1.3 % (0.0-3.0); HEMATOCRIT 26.9 % (36.0-47.0); HEMOGLOBIN 8.9 g/dl (12.0-15.5); LYMPH # 2.3 10^3/uL (1.5-5.0); LYMPH % 41.7 % (24.0-44.0); MEAN CORPUSCULAR HEMOGLOBIN 26.8 pg (27.0-33.0); MEAN CORPUSCULAR HGB CONC 33.1 g/dl (32.0-36.5); MONO # 0.4 10^3/uL (0.0-0.8); MONO % 7.5 % (2.0-8.0); NEUTROPHILS # 2.6 10^3/uL (1.5-8.5); NEUTROPHILS % 47.9 % (36.0-66.0); PLATELET COUNT, AUTOMATED 196 10^3/uL (150-450); RED BLOOD COUNT 3.32 10^6/uL (4.00-5.40); WHITE BLOOD COUNT 5.5 10^3/uL (4.0-10.0)
[2024-02-05 06:48] LABS: BLOOD UREA NITROGEN 9 MG/DL (9-23); CALCIUM LEVEL 7.6 MG/DL (8.5-10.1); CARBON DIOXIDE LEVEL 30 MMOL/L (20-31); CHLORIDE LEVEL 102 MMOL/L (98-107); CREATININE FOR GFR 0.57 MG/DL (0.55-1.30); GLOMERULAR FILTRATION RATE > 60.0 (>58); GLUCOSE, FASTING 75 MG/DL (60-100); MAGNESIUM LEVEL 1.9 MG/DL (1.8-2.4); PHOSPHORUS LEVEL 4.4 MG/DL (2.5-4.9); POTASSIUM SERUM 3.8 MMOL/L (3.5-5.1); SODIUM LEVEL 135 MMOL/L (136-145)
[2024-02-05] MEDS ORDERED: METOCLOPRAMIDE INJ 10MG/2ML VIAL IV PRN (10:10)
[2024-02-05 14:00] VITALS: BP 100/64; TEMP 97.5; O2SAT 95
[2024-02-05] MEDS: INSULIN LISPRO (NovoLOG) PER UNIT SC SCH (18:00)
[2024-02-05] MEDS: FAT EMULSION IV 250 ML IV ONE (18:10)
[2024-02-05] MEDS: AMINO AC/ELECTROLYTE/DEX/CALC 1,000 ML IV SCH (18:10)
[2024-02-05 20:30] VITALS: BP 102/65; TEMP 97.5; O2SAT 96
[2024-02-06 05:20] VITALS: BP 102/63; TEMP 98.2; O2SAT 93
[2024-02-06 06:56] LABS: BASO % 0.4 % (0.0-1.0); EOS % 0.6 % (0.0-3.0); HEMATOCRIT 25.2 % (36.0-47.0); HEMOGLOBIN 8.4 g/dl (12.0-15.5); LYMPH # 1.9 10^3/uL (1.5-5.0); LYMPH % 40.3 % (24.0-44.0); MEAN CORPUSCULAR HGB CONC 33.3 g/dl (32.0-36.5); MONO # 0.4 10^3/uL (0.0-0.8); MONO % 8.1 % (2.0-8.0); NEUTROPHILS # 2.3 10^3/uL (1.5-8.5); NEUTROPHILS % 49.7 % (36.0-66.0); PLATELET COUNT, AUTOMATED 177 10^3/uL (150-450); RED BLOOD COUNT 3.11 10^6/uL (4.00-5.40); WHITE BLOOD COUNT 4.7 10^3/uL (4.0-10.0)
[2024-02-06 07:10] LABS: BLOOD UREA NITROGEN 8 MG/DL (9-23); CALCIUM LEVEL 7.8 MG/DL (8.5-10.1); CARBON DIOXIDE LEVEL 30 MMOL/L (20-31); CHLORIDE LEVEL 101 MMOL/L (98-107); CREATININE FOR GFR 0.54 MG/DL (0.55-1.30); GLOMERULAR FILTRATION RATE > 60.0 (>58); GLUCOSE, FASTING 96 MG/DL (60-100); MAGNESIUM LEVEL 1.7 MG/DL (1.8-2.4); POTASSIUM SERUM 3.2 MMOL/L (3.5-5.1); SODIUM LEVEL 136 MMOL/L (136-145)
[2024-02-06] MEDS: MAG SULF 1GM/100ML (MAG RUN) 1 GM in IV 1 EA IV SCH (08:11)
[2024-02-06] MEDS: KCL 10MEQ/100ML SWI (KRUN) 10 MEQ in IV 1 EA IV SCH (10:18)
[2024-02-06] MEDS: METOCLOPRAMIDE 5 MG TAB PO SCH (13:17)
[2024-02-06 14:00] VITALS: BP 102/63; TEMP 97.5; O2SAT 96
[2024-02-06] MEDS: INSULIN LISPRO (NovoLOG) PER UNIT SC SCH (17:54)
[2024-02-06] MEDS: FAT EMULSION IV 250 ML IV ONE (18:06)
[2024-02-06 21:20] VITALS: BP 105/63; TEMP 98.2; O2SAT 95
[2024-02-07 05:21] VITALS: BP 106/64; TEMP 98.4; O2SAT 95
[2024-02-07 06:15] LABS: HEMATOCRIT 24.2 % (36.0-47.0); HEMOGLOBIN 8.1 g/dl (12.0-15.5); LYMPH # 1.7 10^3/uL (1.5-5.0); LYMPH % 41.8 % (24.0-44.0); MEAN CORPUSCULAR HEMOGLOBIN 26.7 pg (27.0-33.0); MEAN CORPUSCULAR HGB CONC 33.5 g/dl (32.0-36.5); MEAN CORPUSCULAR VOLUME 79.9 fl (80.0-96.0); MONO # 0.4 10^3/uL (0.0-0.8); NEUTROPHILS # 1.8 10^3/uL (1.5-8.5); PLATELET COUNT, AUTOMATED 166 10^3/uL (150-450); RED BLOOD COUNT 3.03 10^6/uL (4.00-5.40); WHITE BLOOD COUNT 4.1 10^3/uL (4.0-10.0)
[2024-02-07 06:43] LABS: BLOOD UREA NITROGEN 6 MG/DL (9-23); CARBON DIOXIDE LEVEL 32 MMOL/L (20-31); CHLORIDE LEVEL 100 MMOL/L (98-107); CREATININE FOR GFR 0.51 MG/DL (0.55-1.30); GLOMERULAR FILTRATION RATE > 60.0 (>58); GLUCOSE, FASTING 106 MG/DL (60-100); MAGNESIUM LEVEL 1.9 MG/DL (1.8-2.4); PHOSPHORUS LEVEL 5.5 MG/DL (2.5-4.9); POTASSIUM SERUM 3.6 MMOL/L (3.5-5.1); SODIUM LEVEL 135 MMOL/L (136-145)
[2024-02-07] MEDS: NS 500 ML IV ONE (08:00)
[2024-02-07 09:30] VITALS: O2SAT 90
[2024-02-07 09:45] VITALS: O2SAT 96
[2024-02-07] MEDS: KCL 10MEQ/100ML SWI (KRUN) 10 MEQ in IV 1 EA IV SCH (12:37)
[2024-02-07] MEDS: AMINO AC/ELECTROLYTE/DEX/CALC 1,000 ML IV SCH (13:25)
[2024-02-07] MEDS: INSULIN LISPRO (NovoLOG) PER UNIT SC SCH ×2 (13:25→18:00)
[2024-02-07 13:54] VITALS: BP 130/82; TEMP 98.9; O2SAT 99
[2024-02-07 14:00] VITALS: BP 131/80; TEMP 97.7; O2SAT 100
[2024-02-07] MEDS: SODIUM CHLORIDE 0.9% INJ 10 ML SYR IV PRN (14:14)
[2024-02-07] MEDS: SODIUM CHLORIDE 0.9% INJ 10 ML SYR IV SCH (18:00)
[2024-02-07] MEDS: MULTIVITAMIN -ADULT INJECTION 10 ML, ZINC/COPPER/MANGANESE/SELENIUM 1 ML in AMINO AC/EL... IV SCH (18:35)
[2024-02-07] MEDS: FAT EMULSION IV 250 ML IV ONE (18:35)
[2024-02-07 20:30] VITALS: BP 130/85; TEMP 97.7; O2SAT 98
[2024-02-08 05:40] VITALS: BP 111/58; TEMP 97.9; O2SAT 98
[2024-02-08 06:41] LABS: BASO % 0.6 % (0.0-1.0); EOS % 1.2 % (0.0-3.0); HEMATOCRIT 21.6 % (36.0-47.0); HEMOGLOBIN 7.1 g/dl (12.0-15.5); LYMPH # 1.8 10^3/uL (1.5-5.0); LYMPH % 54.7 % (24.0-44.0); MEAN CORPUSCULAR HGB CONC 32.9 g/dl (32.0-36.5); MEAN CORPUSCULAR VOLUME 82.1 fl (80.0-96.0); MONO # 0.3 10^3/uL (0.0-0.8); MONO % 9.4 % (2.0-8.0); NEUTROPHILS # 1.1 10^3/uL (1.5-8.5); NEUTROPHILS % 32.9 % (36.0-66.0); PLATELET COUNT, AUTOMATED 150 10^3/uL (150-450); RED BLOOD COUNT 2.63 10^6/uL (4.00-5.40); WHITE BLOOD COUNT 3.3 10^3/uL (4.0-10.0)
[2024-02-08 06:53] LABS: BLOOD UREA NITROGEN 7 MG/DL (9-23); CALCIUM LEVEL 7.7 MG/DL (8.5-10.1); CARBON DIOXIDE LEVEL 32 MMOL/L (20-31); CHLORIDE LEVEL 104 MMOL/L (98-107); CREATININE FOR GFR 0.44 MG/DL (0.55-1.30); GLOMERULAR FILTRATION RATE > 60.0 (>58); GLUCOSE, FASTING 120 MG/DL (60-100); MAGNESIUM LEVEL 1.6 MG/DL (1.8-2.4); PHOSPHORUS LEVEL 5.3 MG/DL (2.5-4.9); POTASSIUM SERUM 3.4 MMOL/L (3.5-5.1); SODIUM LEVEL 141 MMOL/L (136-145)
[2024-02-08] MEDS: MAG SULF 1GM/100ML (MAG RUN) 1 GM in IV 1 EA IV SCH (08:59)
[2024-02-08 09:00] VITALS: BP 108/58
[2024-02-08] MEDS: POTASSIUM CHLORIDE 10MEQ SR TABLET PO ONE (09:00)
[2024-02-08] MEDS ORDERED: E-Z-PAQUE 96% w/w SUSP 176GM BTL As Ordered ONE (09:43)
[2024-02-08 11:47] LABS: BASO % 0.7 % (0.0-1.0); EOS # 0.1 10^3/uL (0.0-0.5); EOS % 1.2 % (0.0-3.0); HEMATOCRIT 25.4 % (36.0-47.0); HEMOGLOBIN 8.4 g/dl (12.0-15.5); LYMPH # 2.1 10^3/uL (1.5-5.0); LYMPH % 49.4 % (24.0-44.0); MEAN CORPUSCULAR HEMOGLOBIN 27.4 pg (27.0-33.0); MEAN CORPUSCULAR HGB CONC 33.1 g/dl (32.0-36.5); MEAN CORPUSCULAR VOLUME 82.7 fl (80.0-96.0); MONO # 0.5 10^3/uL (0.0-0.8); MONO % 11.6 % (2.0-8.0); NEUTROPHILS # 1.5 10^3/uL (1.5-8.5); NEUTROPHILS % 35.7 % (36.0-66.0); PLATELET COUNT, AUTOMATED 139 10^3/uL (150-450); RED BLOOD COUNT 3.07 10^6/uL (4.00-5.40); WHITE BLOOD COUNT 4.2 10^3/uL (4.0-10.0)
[2024-02-08 13:07] VITALS: BP 128/80
[2024-02-08 14:00] VITALS: BP 127/82; TEMP 97.3; O2SAT 100
[2024-02-08] MEDS: INSULIN LISPRO (NovoLOG) PER UNIT SC SCH (18:00)
[2024-02-08 18:53] VITALS: BP 121/77
[2024-02-08] MEDS: FAT EMULSION IV 250 ML IV ONE (18:58)
[2024-02-08] MEDS: AMINO AC/ELECTROLYTE/DEX/CALC 2,000 ML IV SCH (18:58)
[2024-02-08] MEDS: MORPHINE 2 MG/ML 1ML VIAL IV PRN (21:14)
[2024-02-08 21:18] VITALS: BP 136/77; TEMP 98.6; O2SAT 99
[2024-02-09 03:24] VITALS: O2SAT 96
[2024-02-09 05:00] VITALS: BP 137/77; TEMP 98.1; O2SAT 97
[2024-02-09 06:16] LABS: HEMATOCRIT 23.6 % (36.0-47.0); HEMOGLOBIN 7.7 g/dl (12.0-15.5); MEAN CORPUSCULAR HEMOGLOBIN 26.7 pg (27.0-33.0); MEAN CORPUSCULAR HGB CONC 32.6 g/dl (32.0-36.5); MEAN CORPUSCULAR VOLUME 81.9 fl (80.0-96.0); PLATELET COUNT, AUTOMATED 139 10^3/uL (150-450); RED BLOOD COUNT 2.88 10^6/uL (4.00-5.40); WHITE BLOOD COUNT 4.3 10^3/uL (4.0-10.0)
[2024-02-09 06:43] LABS: BLOOD UREA NITROGEN 9 MG/DL (9-23); CALCIUM LEVEL 8.3 MG/DL (8.5-10.1); CARBON DIOXIDE LEVEL 34 MMOL/L (20-31); CHLORIDE LEVEL 104 MMOL/L (98-107); CREATININE FOR GFR 0.41 MG/DL (0.55-1.30); GLOMERULAR FILTRATION RATE > 60.0 (>58); GLUCOSE, FASTING 99 MG/DL (60-100); MAGNESIUM LEVEL 1.7 MG/DL (1.8-2.4); POTASSIUM SERUM 3.6 MMOL/L (3.5-5.1); SODIUM LEVEL 139 MMOL/L (136-145)
[2024-02-09 07:04] LABS: ATYPICAL LYMPH 2 % (0-5); LYMPHOCYTES 55 % (16-44); MONOCYTES 5 % (0-5); NEUTROPHILS 37 % (28-66)
[2024-02-09 07:05] LABS: PLATELET ESTIMATE NORMAL (NORMAL)
[2024-02-09] MEDS: MAG SULF 1GM/100ML (MAG RUN) 1 GM in IV 1 EA IV SCH (08:36)
[2024-02-09 14:00] VITALS: BP 112/67; TEMP 97.9; O2SAT 97
[2024-02-09] MEDS: MULTIVITAMIN -ADULT INJECTION 10 ML, ZINC/COPPER/MANGANESE/SELENIUM 1 ML in AMINO AC/EL... IV SCH (17:53)
[2024-02-09] MEDS: INSULIN LISPRO (NovoLOG) PER UNIT SC SCH (17:53)
[2024-02-09] MEDS: FAT EMULSION IV 250 ML IV ONE (17:54)
[2024-02-09 20:00] VITALS: BP 119/71; TEMP 97.5; O2SAT 94
[2024-02-10] VITALS (10 sets, daily range): BP systolic 112–146; BP diastolic 66–89; TEMP 97.5–98.9; O2SAT 91–95
[2024-02-10] MEDS ORDERED: MAG SULF 1GM/100ML (MAG RUN) 1 GM in IV 1 EA IV ONE (07:05)
[2024-02-10 07:29] LABS: BASO % 0.6 % (0.0-1.0); EOS # 0.1 10^3/uL (0.0-0.5); EOS % 1.2 % (0.0-3.0); HEMATOCRIT 22.5 % (36.0-47.0); HEMOGLOBIN 7.5 g/dl (12.0-15.5); LYMPH # 1.7 10^3/uL (1.5-5.0); LYMPH % 34.9 % (24.0-44.0); MEAN CORPUSCULAR HEMOGLOBIN 26.6 pg (27.0-33.0); MEAN CORPUSCULAR HGB CONC 33.3 g/dl (32.0-36.5); MEAN CORPUSCULAR VOLUME 79.8 fl (80.0-96.0); MONO # 0.4 10^3/uL (0.0-0.8); MONO % 8.7 % (2.0-8.0); NEUTROPHILS # 2.5 10^3/uL (1.5-8.5); NEUTROPHILS % 50.9 % (36.0-66.0); PLATELET COUNT, AUTOMATED 129 10^3/uL (150-450); RED BLOOD COUNT 2.82 10^6/uL (4.00-5.40); WHITE BLOOD COUNT 4.8 10^3/uL (4.0-10.0)
[2024-02-10 07:52] LABS: BLOOD UREA NITROGEN 12 MG/DL (9-23); CALCIUM LEVEL 7.8 MG/DL (8.5-10.1); CARBON DIOXIDE LEVEL 34 MMOL/L (20-31); CHLORIDE LEVEL 102 MMOL/L (98-107); CREATININE FOR GFR 0.42 MG/DL (0.55-1.30); GLOMERULAR FILTRATION RATE > 60.0 (>58); GLUCOSE, FASTING 114 MG/DL (60-100); MAGNESIUM LEVEL 1.6 MG/DL (1.8-2.4); PHOSPHORUS LEVEL 4.8 MG/DL (2.5-4.9); POTASSIUM SERUM 3.3 MMOL/L (3.5-5.1); SODIUM LEVEL 140 MMOL/L (136-145)
[2024-02-10] MEDS: KCL 10MEQ/100ML SWI (KRUN) 10 MEQ in IV 1 EA IV SCH (09:01)
[2024-02-10] MEDS: MAG SULF 1GM/100ML (MAG RUN) 1 GM in IV 1 EA IV SCH (11:46)
[2024-02-10] MEDS ORDERED: LIDOCAINE 2% 100MG/5ML SDV (FOR ANES.) As Ordered ONE (13:28)
[2024-02-10] MEDS ORDERED: propofoL 200 MG/20 ML VIAL As Ordered ONE (13:28)
[2024-02-10] MEDS ORDERED: ONDANSETRON 4MG 2ML VIAL As Ordered ONE (13:28)
[2024-02-10] MEDS ORDERED: PHENYLephrine 500MCG 5ML (100MCG/ML) SYRINGE As Ordered ONE (13:58)
[2024-02-10] MEDS ORDERED: MOM 30ML SUSPENSION UDC PEG PRN (16:25)
[2024-02-10] MEDS: SUCRALFATE SUSP 1GM/10ML UD PEG SCH (16:48)
[2024-02-10] MEDS: FAT EMULSION IV 250 ML IV ONE (18:05)
[2024-02-10] MEDS: AMINO AC/ELECTROLYTE/DEX/CALC 2,000 ML IV SCH (18:05)
[2024-02-10] MEDS: INSULIN LISPRO (NovoLOG) PER UNIT SC SCH (18:05)
[2024-02-10 19:11] LABS: HEMATOCRIT 27.4 % (36.0-47.0); HEMOGLOBIN 9.2 g/dl (12.0-15.5)
[2024-02-10] MEDS ORDERED: DULoxetine 30MG CAPSULE (CYMBALTA) PEG SCH (21:00)
[2024-02-10] MEDS: DULoxetine 30MG CAPSULE (CYMBALTA) GT SCH (22:02)
[2024-02-11 06:20] VITALS: BP 142/85; TEMP 98.6; O2SAT 95
[2024-02-11 06:30] LABS: BASO % 0.4 % (0.0-1.0); EOS % 0.2 % (0.0-3.0); HEMATOCRIT 25.5 % (36.0-47.0); HEMOGLOBIN 8.6 g/dl (12.0-15.5); LYMPH # 1.2 10^3/uL (1.5-5.0); MEAN CORPUSCULAR HEMOGLOBIN 27.2 pg (27.0-33.0); MEAN CORPUSCULAR HGB CONC 33.7 g/dl (32.0-36.5); MEAN CORPUSCULAR VOLUME 80.7 fl (80.0-96.0); MONO # 0.8 10^3/uL (0.0-0.8); MONO % 7.7 % (2.0-8.0); NEUTROPHILS # 7.6 10^3/uL (1.5-8.5); NEUTROPHILS % 77.7 % (36.0-66.0); PLATELET COUNT, AUTOMATED 147 10^3/uL (150-450); RED BLOOD COUNT 3.16 10^6/uL (4.00-5.40); WHITE BLOOD COUNT 9.8 10^3/uL (4.0-10.0)
[2024-02-11 06:51] LABS: BLOOD UREA NITROGEN 17 MG/DL (9-23); CALCIUM LEVEL 8.3 MG/DL (8.5-10.1); CARBON DIOXIDE LEVEL 33 MMOL/L (20-31); CHLORIDE LEVEL 100 MMOL/L (98-107); CREATININE FOR GFR 0.42 MG/DL (0.55-1.30); GLOMERULAR FILTRATION RATE > 60.0 (>58); GLUCOSE, FASTING 117 MG/DL (60-100); MAGNESIUM LEVEL 1.7 MG/DL (1.8-2.4); PHOSPHORUS LEVEL 4.8 MG/DL (2.5-4.9); POTASSIUM SERUM 3.6 MMOL/L (3.5-5.1); SODIUM LEVEL 135 MMOL/L (136-145)
[2024-02-11] MEDS: MIDODRINE 5 MG TAB PEG SCH (08:44)
[2024-02-11] MEDS: MAG SULF 1GM/100ML (MAG RUN) 1 GM in IV 1 EA IV SCH (08:45)
[2024-02-11] MEDS ORDERED: METOPROLOL TART 25 MG TABLET PEG SCH (09:00)
[2024-02-11 10:00] VITALS: BP 142/86; TEMP 97.7; O2SAT 96
[2024-02-11] MEDS ORDERED: traMADol 50 MG TAB PEG PRN (11:15)
[2024-02-11] MEDS ORDERED: PILL CUTTER 1 EACH XX PRN (11:20)
[2024-02-11 12:09] VITALS: BP 142/85
[2024-02-11 14:00] VITALS: BP 140/85; TEMP 98.1; O2SAT 95
[2024-02-11] MEDS: HEPARIN SOD (PORCINE) 5000UNITS/ML 1ML VIAL/SYRINGE SQ SCH (14:56)
[2024-02-11] MEDS: MIDODRINE 2.5 MG TAB PEG SCH (16:00)
[2024-02-11 18:00] VITALS: BP 139/73; TEMP 98.6; O2SAT 95
[2024-02-11] MEDS: INSULIN LISPRO (NovoLOG) PER UNIT SC SCH (18:06)
[2024-02-11] MEDS: MULTIVITAMIN -ADULT INJECTION 10 ML, ZINC/COPPER/MANGANESE/SELENIUM 1 ML in AMINO AC/EL... IV SCH (18:08)
[2024-02-11] MEDS: FAT EMULSION IV 250 ML IV ONE (18:09)
[2024-02-11] MEDS: METOPROLOL TART 25 MG TABLET PEG ONE (18:44)
[2024-02-11 19:41] LABS: BLOOD UREA NITROGEN 16 MG/DL (9-23); CALCIUM LEVEL 8.1 MG/DL (8.5-10.1); CARBON DIOXIDE LEVEL 32 MMOL/L (20-31); CHLORIDE LEVEL 98 MMOL/L (98-107); CREATININE FOR GFR 0.44 MG/DL (0.55-1.30); GLOMERULAR FILTRATION RATE > 60.0 (>58); GLUCOSE, FASTING 116 MG/DL (60-100); MAGNESIUM LEVEL 1.9 MG/DL (1.8-2.4); PHOSPHORUS LEVEL 4.6 MG/DL (2.5-4.9); POTASSIUM SERUM 3.4 MMOL/L (3.5-5.1); SODIUM LEVEL 135 MMOL/L (136-145)
[2024-02-11 20:40] VITALS: BP 139/73; TEMP 98.6; O2SAT 94
[2024-02-11] MEDS: KCL 10MEQ/100ML SWI (KRUN) 10 MEQ in IV 1 EA IV ONE (21:24)
[2024-02-11] MEDS: ONDANSETRON 4MG 2ML VIAL IV PRN (21:58)
[2024-02-12] VITALS (8 sets, daily range): BP systolic 127–148; BP diastolic 70–80; TEMP 97.7–98.6; O2SAT 94–95
[2024-02-12 07:01] LABS: BASO % 0.3 % (0.0-1.0); EOS % 0.2 % (0.0-3.0); HEMOGLOBIN 8.5 g/dl (12.0-15.5); LYMPH # 1.2 10^3/uL (1.5-5.0); LYMPH % 11.1 % (24.0-44.0); MEAN CORPUSCULAR HEMOGLOBIN 26.9 pg (27.0-33.0); MEAN CORPUSCULAR VOLUME 79.1 fl (80.0-96.0); MONO # 0.7 10^3/uL (0.0-0.8); MONO % 6.3 % (2.0-8.0); NEUTROPHILS % 80.6 % (36.0-66.0); PLATELET COUNT, AUTOMATED 174 10^3/uL (150-450); RED BLOOD COUNT 3.16 10^6/uL (4.00-5.40); WHITE BLOOD COUNT 11.1 10^3/uL (4.0-10.0)
[2024-02-12 07:39] LABS: LIPASE 12 U/L (12-53)
[2024-02-12 07:41] LABS: ALBUMIN 1.3 G/DL (3.2-5.2); ALKALINE PHOSPHATASE 93 U/L (46-116); ALT/SGPT 35 U/L (7.0-40); AST/SGOT 40 U/L (<34); BILIRUBIN,DIRECT 0.2 MG/DL (<0.4); BILIRUBIN,TOTAL 0.3 MG/DL (0.3-1.2); BLOOD UREA NITROGEN 15 MG/DL (9-23); CALCIUM LEVEL 8.2 MG/DL (8.5-10.1); CARBON DIOXIDE LEVEL 31 MMOL/L (20-31); CHLORIDE LEVEL 96 MMOL/L (98-107); CREATININE FOR GFR 0.47 MG/DL (0.55-1.30); GLOMERULAR FILTRATION RATE > 60.0 (>58); GLUCOSE, FASTING 117 MG/DL (60-100); MAGNESIUM LEVEL 1.6 MG/DL (1.8-2.4); PHOSPHORUS LEVEL 4.1 MG/DL (2.5-4.9); POTASSIUM SERUM 3.5 MMOL/L (3.5-5.1); SODIUM LEVEL 135 MMOL/L (136-145); TOTAL PROTEIN 4.2 G/DL (5.7-8.2)
[2024-02-12] MEDS: MAG SULF 1GM/100ML (MAG RUN) 1 GM in IV 1 EA IV SCH (08:48)
[2024-02-12] MEDS: METOPROLOL TART 25 MG TABLET PEG SCH (08:49)
[2024-02-12] MEDS ORDERED: METOPROLOL TART 25 MG TABLET PEG SCH (09:00)
[2024-02-12 09:21] LABS: FREE T4 0.89 NG/DL (0.89-1.76); THYROID STIMULATING HORMONE 2.973 uIU/ML (0.55-4.78)
[2024-02-12 09:38] LABS: ABG BASE EXCESS 4.1 (-2.0-2.0); ABG O2 SATURATION 96.8 % (95.0-99.0); ABG PARTIAL PRESSURE CO2 33.8 mmHg (35.0-45.0); ABG PARTIAL PRESSURE O2 93.7 mmHg (75.0-100.0); ABG STANDARD HCO3 28.1 MMOL/L. (22.0-26.0)
[2024-02-12] MEDS: METOCLOPRAMIDE INJ 10MG/2ML VIAL IV SCH (12:15)
[2024-02-12 12:49] LABS: PROCALCITONIN 0.19 ng/ml
[2024-02-12] MEDS: PIPERACILLIN/TAZOBACTAM SOD 3.375 GM in D5W MINI-BAG PLUS 50 ML IV SCH (15:21)
[2024-02-12] MEDS: INSULIN LISPRO (NovoLOG) PER UNIT SC SCH (18:17)
[2024-02-12] MEDS: AMINO AC/ELECTROLYTE/DEX/CALC 2,000 ML IV SCH (18:21)
[2024-02-12] MEDS: FAT EMULSION IV 250 ML IV ONE (18:21)
[2024-02-13] VITALS (10 sets, daily range): BP systolic 118–146; BP diastolic 62–81; TEMP 97.5–98.1; O2SAT 94–98
[2024-02-13 06:15] LABS: BASO % 0.3 % (0.0-1.0); EOS % 0.4 % (0.0-3.0); HEMATOCRIT 23.9 % (36.0-47.0); LYMPH # 1.4 10^3/uL (1.5-5.0); LYMPH % 12.3 % (24.0-44.0); MEAN CORPUSCULAR HEMOGLOBIN 27.1 pg (27.0-33.0); MEAN CORPUSCULAR HGB CONC 33.5 g/dl (32.0-36.5); MONO # 0.8 10^3/uL (0.0-0.8); NEUTROPHILS # 8.9 10^3/uL (1.5-8.5); NEUTROPHILS % 78.3 % (36.0-66.0); PLATELET COUNT, AUTOMATED 181 10^3/uL (150-450); RED BLOOD COUNT 2.95 10^6/uL (4.00-5.40); WHITE BLOOD COUNT 11.4 10^3/uL (4.0-10.0)
[2024-02-13 06:54] LABS: ALBUMIN 1.2 G/DL (3.2-5.2); ALKALINE PHOSPHATASE 105 U/L (46-116); ALT/SGPT 62 U/L (7.0-40); AST/SGOT 75 U/L (<34); BILIRUBIN,DIRECT 0.2 MG/DL (<0.4); BILIRUBIN,TOTAL 0.4 MG/DL (0.3-1.2); BLOOD UREA NITROGEN 13 MG/DL (9-23); CARBON DIOXIDE LEVEL 29 MMOL/L (20-31); CHLORIDE LEVEL 96 MMOL/L (98-107); CREATININE FOR GFR 0.52 MG/DL (0.55-1.30); GLOMERULAR FILTRATION RATE > 60.0 (>58); GLUCOSE, FASTING 111 MG/DL (60-100); MAGNESIUM LEVEL 1.7 MG/DL (1.8-2.4); POTASSIUM SERUM 3.5 MMOL/L (3.5-5.1); SODIUM LEVEL 131 MMOL/L (136-145); TOTAL PROTEIN 4.2 G/DL (5.7-8.2)
[2024-02-13] MEDS: MAG SULF 1GM/100ML (MAG RUN) 1 GM in IV 1 EA IV ONE (08:41)
[2024-02-13] MEDS ORDERED: VANCOMYCIN 125MG CAPSULE PO SCH (09:00)
[2024-02-13] MEDS: FUROSEMIDE 40MG/4ML VIAL IV ONE (09:52)
[2024-02-13] MEDS: VANCOMYCIN ORAL SOL 250MG/5ML ORAL SYRINGE PEG SCH (10:45)
[2024-02-13] MEDS: MULTIVITAMINS/MINERALS THERAP 1 TAB PEG SCH (10:46)
[2024-02-13] MEDS: FUROSEMIDE 40 MG TAB PEG SCH (18:02)
[2024-02-13] MEDS: INSULIN LISPRO (NovoLOG) PER UNIT SC SCH (18:32)
[2024-02-13] MEDS: FAT EMULSION IV 250 ML IV ONE (18:34)
[2024-02-13] MEDS: AMINO AC/ELECTROLYTE/DEX/CALC 2,000 ML IV SCH (18:34)
[2024-02-14] VITALS (10 sets, daily range): BP systolic 101–146; BP diastolic 52–80; TEMP 97.1–98.4; O2SAT 94–97
[2024-02-14 06:15] LABS: BASO % 0.3 % (0.0-1.0); EOS % 0.5 % (0.0-3.0); HEMOGLOBIN 7.2 g/dl (12.0-15.5); LYMPH # 1.1 10^3/uL (1.5-5.0); LYMPH % 14.5 % (24.0-44.0); MEAN CORPUSCULAR HEMOGLOBIN 27.2 pg (27.0-33.0); MEAN CORPUSCULAR HGB CONC 34.4 g/dl (32.0-36.5); MEAN CORPUSCULAR VOLUME 78.9 fl (80.0-96.0); MONO # 0.5 10^3/uL (0.0-0.8); MONO % 6.8 % (2.0-8.0); NEUTROPHILS # 5.8 10^3/uL (1.5-8.5); NEUTROPHILS % 76.1 % (36.0-66.0); PLATELET COUNT, AUTOMATED 183 10^3/uL (150-450); RED BLOOD COUNT 2.65 10^6/uL (4.00-5.40); WHITE BLOOD COUNT 7.6 10^3/uL (4.0-10.0)
[2024-02-14 06:37] LABS: HEMATOCRIT 20.9 % (36.0-47.0)
[2024-02-14 06:49] LABS: ALBUMIN 2.1 G/DL (3.2-5.2); ALKALINE PHOSPHATASE 90 U/L (46-116); ALT/SGPT 55 U/L (7.0-40); AST/SGOT 58 U/L (<34); BILIRUBIN,DIRECT 0.3 MG/DL (<0.4); BILIRUBIN,TOTAL 0.4 MG/DL (0.3-1.2); BLOOD UREA NITROGEN 12 MG/DL (9-23); CALCIUM LEVEL 7.8 MG/DL (8.5-10.1); CARBON DIOXIDE LEVEL 31 MMOL/L (20-31); CHLORIDE LEVEL 93 MMOL/L (98-107); GLOMERULAR FILTRATION RATE > 60.0 (>58); GLUCOSE, FASTING 116 MG/DL (60-100); MAGNESIUM LEVEL 1.6 MG/DL (1.8-2.4); PHOSPHORUS LEVEL 5.2 MG/DL (2.5-4.9); POTASSIUM SERUM 3.1 MMOL/L (3.5-5.1); SODIUM LEVEL 132 MMOL/L (136-145); TOTAL PROTEIN 4.7 G/DL (5.7-8.2)
[2024-02-14] MEDS: ACETAMINOPHEN TAB 650MG DOSE (2X325MG) PEG PRN (08:23)
[2024-02-14] MEDS: MAG SULF 1GM/100ML (MAG RUN) 1 GM in IV 1 EA IV SCH (08:24)
[2024-02-14] MEDS: KCL 10MEQ/100ML SWI (KRUN) 10 MEQ in IV 1 EA IV SCH (11:40)
[2024-02-14] MEDS: ENOXAPARIN 40MG/0.4ML SYRINGE (J1650 PER 10MG) SC ONE (13:10)
[2024-02-14 13:29] LABS: BASO % 0.4 % (0.0-1.0); EOS % 0.4 % (0.0-3.0); HEMATOCRIT 23.1 % (36.0-47.0); HEMOGLOBIN 7.7 g/dl (12.0-15.5); LYMPH # 1.1 10^3/uL (1.5-5.0); LYMPH % 14.1 % (24.0-44.0); MEAN CORPUSCULAR HEMOGLOBIN 27.4 pg (27.0-33.0); MEAN CORPUSCULAR HGB CONC 33.3 g/dl (32.0-36.5); MEAN CORPUSCULAR VOLUME 82.2 fl (80.0-96.0); MONO # 0.6 10^3/uL (0.0-0.8); MONO % 7.3 % (2.0-8.0); NEUTROPHILS # 6.1 10^3/uL (1.5-8.5); NEUTROPHILS % 76.1 % (36.0-66.0); PLATELET COUNT, AUTOMATED 204 10^3/uL (150-450); RED BLOOD COUNT 2.81 10^6/uL (4.00-5.40)
[2024-02-14] MEDS ORDERED: KCL 10MEQ IN STERILE WATER 100ML As Ordered ONE (16:01)
[2024-02-14] MEDS: INSULIN LISPRO (NovoLOG) PER UNIT SC SCH (17:50)
[2024-02-14] MEDS: MULTIVITAMIN -ADULT INJECTION 10 ML, ZINC/COPPER/MANGANESE/SELENIUM 1 ML in AMINO AC/EL... IV SCH (17:51)
[2024-02-14] MEDS: FAT EMULSION IV 250 ML IV ONE (17:52)
[2024-02-14] MEDS ORDERED: INSULIN LISPRO (NovoLOG) PER UNIT SC SCH (18:00)
[2024-02-14] MEDS ORDERED: FAT EMULSION IV 250 ML IV ONE (18:00)
[2024-02-14] MEDS ORDERED: MULTIVITAMIN -ADULT INJECTION 10 ML, ZINC/COPPER/MANGANESE/SELENIUM 1 ML in AMINO AC/EL... IV SCH (18:00)
[2024-02-14] MEDS: NORCO, ANEXSIA 5/325MG TABLET (HYDROcodone/ACETAMINOPHEN) PO ONE (23:37)
[2024-02-15 05:52] VITALS: BP 144/79; TEMP 97.9; O2SAT 95
[2024-02-15 06:52] LABS: BASO % 0.5 % (0.0-1.0); EOS % 0.5 % (0.0-3.0); HEMOGLOBIN 8.8 g/dl (12.0-15.5); LYMPH % 11.6 % (24.0-44.0); MEAN CORPUSCULAR HEMOGLOBIN 27.7 pg (27.0-33.0); MEAN CORPUSCULAR HGB CONC 33.8 g/dl (32.0-36.5); MEAN CORPUSCULAR VOLUME 81.8 fl (80.0-96.0); MONO # 0.7 10^3/uL (0.0-0.8); MONO % 7.6 % (2.0-8.0); NEUTROPHILS # 6.6 10^3/uL (1.5-8.5); NEUTROPHILS % 76.9 % (36.0-66.0); PLATELET COUNT, AUTOMATED 235 10^3/uL (150-450); RED BLOOD COUNT 3.18 10^6/uL (4.00-5.40); WHITE BLOOD COUNT 8.5 10^3/uL (4.0-10.0)
[2024-02-15 07:15] LABS: ALBUMIN 1.9 G/DL (3.2-5.2); ALKALINE PHOSPHATASE 112 U/L (46-116); ALT/SGPT 96 U/L (7.0-40); AST/SGOT 85 U/L (<34); BILIRUBIN,DIRECT 0.4 MG/DL (<0.4); BILIRUBIN,TOTAL 0.6 MG/DL (0.3-1.2); BLOOD UREA NITROGEN 13 MG/DL (9-23); CALCIUM LEVEL 8.4 MG/DL (8.5-10.1); CARBON DIOXIDE LEVEL 32 MMOL/L (20-31); CHLORIDE LEVEL 96 MMOL/L (98-107); CREATININE FOR GFR 0.54 MG/DL (0.55-1.30); GLOMERULAR FILTRATION RATE > 60.0 (>58); GLUCOSE, FASTING 124 MG/DL (60-100); MAGNESIUM LEVEL 1.9 MG/DL (1.8-2.4); PHOSPHORUS LEVEL 4.3 MG/DL (2.5-4.9); POTASSIUM SERUM 3.3 MMOL/L (3.5-5.1); SODIUM LEVEL 135 MMOL/L (136-145); TOTAL PROTEIN 4.6 G/DL (5.7-8.2)
[2024-02-15] MEDS: POTASSIUM CHLORIDE 10% LIQ 20MEQ/15ML UDC PEG ONE (08:17)
[2024-02-15] MEDS: ENOXAPARIN 40MG/0.4ML SYRINGE (J1650 PER 10MG) SC SCH (08:18)
[2024-02-15] MEDS: FUROSEMIDE 20 MG TAB PO ONE (11:48)
[2024-02-15 14:00] VITALS: BP 121/74; TEMP 97.7; O2SAT 94
[2024-02-15 20:20] VITALS: BP 117/74; TEMP 97.5; O2SAT 96
[2024-02-16 05:12] VITALS: BP 111/73; TEMP 97.7; O2SAT 91
[2024-02-16 05:50] LABS: BASO # 0.1 10^3/uL (0.0-0.2); BASO % 0.7 % (0.0-1.0); EOS # 0.1 10^3/uL (0.0-0.5); EOS % 1.4 % (0.0-3.0); HEMATOCRIT 25.1 % (36.0-47.0); HEMOGLOBIN 8.3 g/dl (12.0-15.5); LYMPH # 1.4 10^3/uL (1.5-5.0); LYMPH % 19.5 % (24.0-44.0); MEAN CORPUSCULAR HEMOGLOBIN 27.5 pg (27.0-33.0); MEAN CORPUSCULAR HGB CONC 33.1 g/dl (32.0-36.5); MEAN CORPUSCULAR VOLUME 83.1 fl (80.0-96.0); MONO # 0.6 10^3/uL (0.0-0.8); MONO % 7.9 % (2.0-8.0); NEUTROPHILS # 4.8 10^3/uL (1.5-8.5); NEUTROPHILS % 66.6 % (36.0-66.0); PLATELET COUNT, AUTOMATED 252 10^3/uL (150-450); RED BLOOD COUNT 3.02 10^6/uL (4.00-5.40); WHITE BLOOD COUNT 7.2 10^3/uL (4.0-10.0)
[2024-02-16 06:17] LABS: ALBUMIN 1.7 G/DL (3.2-5.2); ALKALINE PHOSPHATASE 115 U/L (46-116); ALT/SGPT 72 U/L (7.0-40); AST/SGOT 41 U/L (<34); BILIRUBIN,TOTAL 0.4 MG/DL (0.3-1.2); BLOOD UREA NITROGEN 16 MG/DL (9-23); CALCIUM LEVEL 8.2 MG/DL (8.5-10.1); CARBON DIOXIDE LEVEL 32 MMOL/L (20-31); CHLORIDE LEVEL 99 MMOL/L (98-107); CREATININE FOR GFR 0.52 MG/DL (0.55-1.30); GLOMERULAR FILTRATION RATE > 60.0 (>58); GLUCOSE, FASTING 119 MG/DL (60-100); MAGNESIUM LEVEL 1.8 MG/DL (1.8-2.4); POTASSIUM SERUM 3.7 MMOL/L (3.5-5.1); SODIUM LEVEL 136 MMOL/L (136-145); TOTAL PROTEIN 4.3 G/DL (5.7-8.2)
[2024-02-16 08:06] LABS: PROCALCITONIN 0.19 ng/ml
[2024-02-16] MEDS: METOCLOPRAMIDE 10MG TAB PEG SCH (11:11)
[2024-02-16 14:00] VITALS: BP 113/66; TEMP 97.5; O2SAT 97
[2024-02-16 20:50] VITALS: BP 116/66; TEMP 97.9; O2SAT 95
[2024-02-17 05:30] VITALS: BP 138/81; TEMP 97.5; O2SAT 91
[2024-02-17 06:34] LABS: BASO % 0.5 % (0.0-1.0); EOS # 0.1 10^3/uL (0.0-0.5); EOS % 1.4 % (0.0-3.0); HEMATOCRIT 26.2 % (36.0-47.0); HEMOGLOBIN 8.6 g/dl (12.0-15.5); LYMPH # 1.8 10^3/uL (1.5-5.0); LYMPH % 24.1 % (24.0-44.0); MEAN CORPUSCULAR HEMOGLOBIN 27.9 pg (27.0-33.0); MEAN CORPUSCULAR HGB CONC 32.8 g/dl (32.0-36.5); MEAN CORPUSCULAR VOLUME 85.1 fl (80.0-96.0); MONO # 0.6 10^3/uL (0.0-0.8); NEUTROPHILS # 4.5 10^3/uL (1.5-8.5); NEUTROPHILS % 61.6 % (36.0-66.0); PLATELET COUNT, AUTOMATED 305 10^3/uL (150-450); RED BLOOD COUNT 3.08 10^6/uL (4.00-5.40); WHITE BLOOD COUNT 7.3 10^3/uL (4.0-10.0)
[2024-02-17 07:02] LABS: ALBUMIN 1.8 G/DL (3.2-5.2); ALKALINE PHOSPHATASE 138 U/L (46-116); ALT/SGPT 56 U/L (7.0-40); AST/SGOT 20 U/L (<34); BILIRUBIN,TOTAL 0.3 MG/DL (0.3-1.2); BLOOD UREA NITROGEN 15 MG/DL (9-23); CALCIUM LEVEL 8.6 MG/DL (8.5-10.1); CARBON DIOXIDE LEVEL 30 MMOL/L (20-31); CHLORIDE LEVEL 101 MMOL/L (98-107); CREATININE FOR GFR 0.48 MG/DL (0.55-1.30); GLOMERULAR FILTRATION RATE > 60.0 (>58); GLUCOSE, FASTING 93 MG/DL (60-100); MAGNESIUM LEVEL 1.7 MG/DL (1.8-2.4); SODIUM LEVEL 136 MMOL/L (136-145); TOTAL PROTEIN 4.6 G/DL (5.7-8.2)
[2024-02-17] MEDS: MAG SULF 1GM/100ML (MAG RUN) 1 GM in IV 1 EA IV SCH (08:29)
[2024-02-17] MEDS: OMEPRAZOLE/SODIUM BICARB 20-840MG 10ML ORAL SYRINGE GT SCH (08:35)
[2024-02-17 14:00] VITALS: BP 115/71; TEMP 97.3; O2SAT 96
[2024-02-17] MEDS: DICYCLOMINE 10 MG CAP PO PRN (17:29)
[2024-02-17 21:00] VITALS: BP 100/57; TEMP 97.7; O2SAT 96
[2024-02-18 06:00] VITALS: BP 113/79; TEMP 98.1; O2SAT 94
[2024-02-18 06:06] LABS: BASO % 0.5 % (0.0-1.0); EOS # 0.1 10^3/uL (0.0-0.5); EOS % 0.8 % (0.0-3.0); HEMOGLOBIN 8.8 g/dl (12.0-15.5); LYMPH # 1.5 10^3/uL (1.5-5.0); LYMPH % 20.1 % (24.0-44.0); MEAN CORPUSCULAR HEMOGLOBIN 27.2 pg (27.0-33.0); MEAN CORPUSCULAR HGB CONC 32.6 g/dl (32.0-36.5); MEAN CORPUSCULAR VOLUME 83.3 fl (80.0-96.0); MONO # 0.5 10^3/uL (0.0-0.8); NEUTROPHILS % 67.7 % (36.0-66.0); PLATELET COUNT, AUTOMATED 348 10^3/uL (150-450); RED BLOOD COUNT 3.24 10^6/uL (4.00-5.40); WHITE BLOOD COUNT 7.4 10^3/uL (4.0-10.0)
[2024-02-18 06:27] LABS: ALBUMIN 1.9 G/DL (3.2-5.2); ALKALINE PHOSPHATASE 138 U/L (46-116); ALT/SGPT 47 U/L (7.0-40); AST/SGOT 16 U/L (<34); BILIRUBIN,TOTAL 0.3 MG/DL (0.3-1.2); BLOOD UREA NITROGEN 13 MG/DL (9-23); CALCIUM LEVEL 8.6 MG/DL (8.5-10.1); CARBON DIOXIDE LEVEL 29 MMOL/L (20-31); CHLORIDE LEVEL 102 MMOL/L (98-107); CREATININE FOR GFR 0.45 MG/DL (0.55-1.30); GLOMERULAR FILTRATION RATE > 60.0 (>58); GLUCOSE, FASTING 97 MG/DL (60-100); POTASSIUM SERUM 4.2 MMOL/L (3.5-5.1); SODIUM LEVEL 137 MMOL/L (136-145); TOTAL PROTEIN 4.8 G/DL (5.7-8.2)
[2024-02-18 12:41] VITALS: BP 112/76
[2024-02-18 14:00] VITALS: BP 111/72; TEMP 97.9; O2SAT 95
[2024-02-18 20:40] VITALS: BP 113/72; TEMP 97.7; O2SAT 96
[2024-02-19 06:00] VITALS: BP 121/73; TEMP 97.3; O2SAT 96
[2024-02-19 06:45] LABS: BASO % 0.4 % (0.0-1.0); EOS # 0.1 10^3/uL (0.0-0.5); HEMATOCRIT 27.3 % (36.0-47.0); LYMPH # 1.6 10^3/uL (1.5-5.0); LYMPH % 23.5 % (24.0-44.0); MEAN CORPUSCULAR HEMOGLOBIN 27.5 pg (27.0-33.0); MEAN CORPUSCULAR VOLUME 83.5 fl (80.0-96.0); MONO # 0.6 10^3/uL (0.0-0.8); MONO % 7.9 % (2.0-8.0); NEUTROPHILS # 4.4 10^3/uL (1.5-8.5); NEUTROPHILS % 63.5 % (36.0-66.0); PLATELET COUNT, AUTOMATED 342 10^3/uL (150-450); RED BLOOD COUNT 3.27 10^6/uL (4.00-5.40); WHITE BLOOD COUNT 6.9 10^3/uL (4.0-10.0)
[2024-02-19 07:16] LABS: ALKALINE PHOSPHATASE 136 U/L (46-116); ALT/SGPT 33 U/L (7.0-40); AST/SGOT 13 U/L (<34); BILIRUBIN,TOTAL 0.3 MG/DL (0.3-1.2); BLOOD UREA NITROGEN 13 MG/DL (9-23); CALCIUM LEVEL 8.8 MG/DL (8.5-10.1); CARBON DIOXIDE LEVEL 28 MMOL/L (20-31); CHLORIDE LEVEL 102 MMOL/L (98-107); CREATININE FOR GFR 0.45 MG/DL (0.55-1.30); GLOMERULAR FILTRATION RATE > 60.0 (>58); GLUCOSE, FASTING 97 MG/DL (60-100); MAGNESIUM LEVEL 1.8 MG/DL (1.8-2.4); POTASSIUM SERUM 4.6 MMOL/L (3.5-5.1); SODIUM LEVEL 137 MMOL/L (136-145); TOTAL PROTEIN 4.9 G/DL (5.7-8.2)
[2024-02-19 14:00] VITALS: BP 114/70; TEMP 97.3; O2SAT 96
[2024-02-19 17:36] VITALS: BP 120/70
[2024-02-19 20:12] VITALS: BP 117/68; TEMP 98.1; O2SAT 96
[2024-02-20 04:21] VITALS: BP 120/71; TEMP 97.5; O2SAT 93
[2024-02-20 06:34] LABS: BASO # 0.1 10^3/uL (0.0-0.2); BASO % 0.6 % (0.0-1.0); EOS # 0.1 10^3/uL (0.0-0.5); EOS % 1.4 % (0.0-3.0); HEMATOCRIT 28.3 % (36.0-47.0); HEMOGLOBIN 9.3 g/dl (12.0-15.5); LYMPH # 1.7 10^3/uL (1.5-5.0); LYMPH % 21.4 % (24.0-44.0); MEAN CORPUSCULAR HEMOGLOBIN 27.8 pg (27.0-33.0); MEAN CORPUSCULAR HGB CONC 32.9 g/dl (32.0-36.5); MEAN CORPUSCULAR VOLUME 84.7 fl (80.0-96.0); MONO # 0.6 10^3/uL (0.0-0.8); NEUTROPHILS # 5.2 10^3/uL (1.5-8.5); NEUTROPHILS % 65.8 % (36.0-66.0); PLATELET COUNT, AUTOMATED 378 10^3/uL (150-450); RED BLOOD COUNT 3.34 10^6/uL (4.00-5.40); WHITE BLOOD COUNT 7.9 10^3/uL (4.0-10.0)
[2024-02-20 06:53] LABS: ALBUMIN 2.1 G/DL (3.2-5.2); ALKALINE PHOSPHATASE 137 U/L (46-116); ALT/SGPT 30 U/L (7.0-40); AST/SGOT 12 U/L (<34); BILIRUBIN,TOTAL 0.3 MG/DL (0.3-1.2); BLOOD UREA NITROGEN 12 MG/DL (9-23); CALCIUM LEVEL 8.7 MG/DL (8.5-10.1); CARBON DIOXIDE LEVEL 30 MMOL/L (20-31); CHLORIDE LEVEL 101 MMOL/L (98-107); CREATININE FOR GFR 0.46 MG/DL (0.55-1.30); GLOMERULAR FILTRATION RATE > 60.0 (>58); GLUCOSE, FASTING 100 MG/DL (60-100); MAGNESIUM LEVEL 1.6 MG/DL (1.8-2.4); POTASSIUM SERUM 4.4 MMOL/L (3.5-5.1); SODIUM LEVEL 135 MMOL/L (136-145); TOTAL PROTEIN 5.1 G/DL (5.7-8.2)
[2024-02-20 14:00] VITALS: BP 111/66; TEMP 97.2; O2SAT 95
[2024-02-20 19:45] VITALS: BP 104/56; TEMP 97.2; O2SAT 97
[2024-02-21 04:56] VITALS: BP 122/72; TEMP 97.7; O2SAT 95
[2024-02-21 07:15] LABS: BASO # 0.1 10^3/uL (0.0-0.2); BASO % 0.6 % (0.0-1.0); EOS # 0.1 10^3/uL (0.0-0.5); EOS % 1.5 % (0.0-3.0); HEMOGLOBIN 9.8 g/dl (12.0-15.5); LYMPH # 1.9 10^3/uL (1.5-5.0); LYMPH % 22.4 % (24.0-44.0); MEAN CORPUSCULAR HEMOGLOBIN 27.8 pg (27.0-33.0); MEAN CORPUSCULAR HGB CONC 32.7 g/dl (32.0-36.5); MEAN CORPUSCULAR VOLUME 85.2 fl (80.0-96.0); MONO # 0.6 10^3/uL (0.0-0.8); MONO % 6.9 % (2.0-8.0); NEUTROPHILS # 5.6 10^3/uL (1.5-8.5); NEUTROPHILS % 65.7 % (36.0-66.0); PLATELET COUNT, AUTOMATED 410 10^3/uL (150-450); RED BLOOD COUNT 3.52 10^6/uL (4.00-5.40); WHITE BLOOD COUNT 8.6 10^3/uL (4.0-10.0)
[2024-02-21 07:33] LABS: ALBUMIN 2.4 G/DL (3.2-5.2); ALKALINE PHOSPHATASE 131 U/L (46-116); ALT/SGPT 25 U/L (7.0-40); AST/SGOT 16 U/L (<34); BILIRUBIN,TOTAL 0.3 MG/DL (0.3-1.2); BLOOD UREA NITROGEN 14 MG/DL (9-23); CALCIUM LEVEL 8.5 MG/DL (8.5-10.1); CARBON DIOXIDE LEVEL 29 MMOL/L (20-31); CHLORIDE LEVEL 102 MMOL/L (98-107); CREATININE FOR GFR 0.42 MG/DL (0.55-1.30); GLOMERULAR FILTRATION RATE > 60.0 (>58); GLUCOSE, FASTING 102 MG/DL (60-100); MAGNESIUM LEVEL 1.7 MG/DL (1.8-2.4); POTASSIUM SERUM 4.8 MMOL/L (3.5-5.1); SODIUM LEVEL 138 MMOL/L (136-145); TOTAL PROTEIN 5.4 G/DL (5.7-8.2)
[2024-02-21 13:25] VITALS: BP 117/69; TEMP 97.5; O2SAT 99
[2024-02-21 16:56] LABS: CLOSTRIDIUM DIFFICILE PCR NEGATIVE (NEGATIVE)
[2024-02-21 22:09] VITALS: BP 115/68; TEMP 97.2; O2SAT 97
[2024-02-21 22:18] VITALS: TEMP 98.1
[2024-02-22 04:53] VITALS: BP 115/66; TEMP 97.9; O2SAT 97
[2024-02-22 05:02] VITALS: TEMP 97.3
[2024-02-22 06:58] LABS: BASO % 0.3 % (0.0-1.0); EOS # 0.1 10^3/uL (0.0-0.5); EOS % 1.1 % (0.0-3.0); HEMATOCRIT 29.7 % (36.0-47.0); HEMOGLOBIN 9.6 g/dl (12.0-15.5); LYMPH # 1.7 10^3/uL (1.5-5.0); LYMPH % 18.2 % (24.0-44.0); MEAN CORPUSCULAR HEMOGLOBIN 27.7 pg (27.0-33.0); MEAN CORPUSCULAR HGB CONC 32.3 g/dl (32.0-36.5); MEAN CORPUSCULAR VOLUME 85.8 fl (80.0-96.0); MONO # 0.5 10^3/uL (0.0-0.8); MONO % 5.5 % (2.0-8.0); NEUTROPHILS # 6.8 10^3/uL (1.5-8.5); NEUTROPHILS % 72.5 % (36.0-66.0); PLATELET COUNT, AUTOMATED 368 10^3/uL (150-450); RED BLOOD COUNT 3.46 10^6/uL (4.00-5.40); WHITE BLOOD COUNT 9.4 10^3/uL (4.0-10.0)
[2024-02-22 07:27] LABS: ALBUMIN 2.1 G/DL (3.2-5.2); ALKALINE PHOSPHATASE 121 U/L (46-116); ALT/SGPT 23 U/L (7.0-40); AST/SGOT 12 U/L (<34); BILIRUBIN,TOTAL 0.3 MG/DL (0.3-1.2); BLOOD UREA NITROGEN 16 MG/DL (9-23); CALCIUM LEVEL 8.8 MG/DL (8.5-10.1); CARBON DIOXIDE LEVEL 30 MMOL/L (20-31); CHLORIDE LEVEL 101 MMOL/L (98-107); CREATININE FOR GFR 0.43 MG/DL (0.55-1.30); GLOMERULAR FILTRATION RATE > 60.0 (>58); GLUCOSE, FASTING 110 MG/DL (60-100); MAGNESIUM LEVEL 1.6 MG/DL (1.8-2.4); POTASSIUM SERUM 4.4 MMOL/L (3.5-5.1); SODIUM LEVEL 136 MMOL/L (136-145); TOTAL PROTEIN 5.3 G/DL (5.7-8.2)
[2024-02-22] MEDS: MAG SULF 1GM/100ML (MAG RUN) 1 GM in IV 1 EA IV ONE (11:25)
[2024-02-22 14:48] VITALS: BP 117/82; TEMP 97.7; O2SAT 97
[2024-02-22 22:55] VITALS: BP 101/64; TEMP 97.3; O2SAT 97
[2024-02-23 05:14] VITALS: BP 118/79; TEMP 97.9; O2SAT 96
[2024-02-23 14:26] VITALS: BP 101/50; TEMP 97.9; O2SAT 96
[2024-02-23 20:00] VITALS: BP 114/69; TEMP 97.3; O2SAT 97
[2024-02-24 06:00] VITALS: BP 136/81; TEMP 97.2; O2SAT 96
[2024-02-24 14:00] VITALS: BP 113/65; TEMP 97.9; O2SAT 99
[2024-02-24 20:00] VITALS: BP 105/63; TEMP 97.5; O2SAT 97
[2024-02-25 05:40] VITALS: BP 125/73; TEMP 97.5; O2SAT 97
[2024-02-25 14:00] VITALS: BP 110/68; TEMP 98.2; O2SAT 98
[2024-02-25 19:43] VITALS: BP 122/82; TEMP 97.9; O2SAT 98
[2024-02-26 06:16] VITALS: BP 125/69; TEMP 97.9; O2SAT 97
[2024-02-26 14:00] VITALS: BP 125/68; TEMP 97.9; O2SAT 97
[2024-02-26 22:21] VITALS: BP 103/54; TEMP 97.7; O2SAT 96
[2024-02-26 22:57] VITALS: BP 103/54; TEMP 97.7; O2SAT 96
[2024-02-27 05:05] VITALS: BP 102/54; TEMP 97.2; O2SAT 96
[2024-02-27 09:22] LABS: HEMATOCRIT 27.8 % (36.0-47.0); MEAN CORPUSCULAR HEMOGLOBIN 27.8 pg (27.0-33.0); MEAN CORPUSCULAR HGB CONC 32.4 g/dl (32.0-36.5); MEAN CORPUSCULAR VOLUME 85.8 fl (80.0-96.0); PLATELET COUNT, AUTOMATED 318 10^3/uL (150-450); RED BLOOD COUNT 3.24 10^6/uL (4.00-5.40); WHITE BLOOD COUNT 6.6 10^3/uL (4.0-10.0)
[2024-02-27 09:43] LABS: ALBUMIN 2.1 G/DL (3.2-5.2); ALKALINE PHOSPHATASE 114 U/L (46-116); ALT/SGPT 22 U/L (7.0-40); AST/SGOT 13 U/L (<34); BILIRUBIN,TOTAL 0.3 MG/DL (0.3-1.2); BLOOD UREA NITROGEN 15 MG/DL (9-23); CARBON DIOXIDE LEVEL 32 MMOL/L (20-31); CHLORIDE LEVEL 103 MMOL/L (98-107); CREATININE FOR GFR 0.45 MG/DL (0.55-1.30); GLOMERULAR FILTRATION RATE > 60.0 (>58); GLUCOSE, FASTING 106 MG/DL (60-100); MAGNESIUM LEVEL 1.6 MG/DL (1.8-2.4); PHOSPHORUS LEVEL 5.6 MG/DL (2.5-4.9); POTASSIUM SERUM 4.2 MMOL/L (3.5-5.1); SODIUM LEVEL 140 MMOL/L (136-145); TOTAL PROTEIN 5.4 G/DL (5.7-8.2)
[2024-02-27 12:25] VITALS: BP 112/65
[2024-02-27] MEDS: MAG SULF 1GM/100ML (MAG RUN) 1 GM in IV 1 EA IV SCH (15:14)
[2024-02-27 20:45] VITALS: BP 116/62; TEMP 97.5; O2SAT 96
[2024-02-28 05:15] VITALS: BP 123/77; TEMP 98.1; O2SAT 97
[2024-02-28 14:00] VITALS: BP 104/62; TEMP 97.9; O2SAT 98
[2024-02-28 20:19] VITALS: BP 117/74; TEMP 98.6; O2SAT 98
[2024-02-29 05:55] VITALS: BP 108/69; TEMP 97.8; O2SAT 95
[2024-02-29 14:00] VITALS: BP 120/92; TEMP 97.9; O2SAT 96
[2024-02-29 21:17] VITALS: BP 108/69; TEMP 97.5; O2SAT 96
[2024-03-01 06:22] VITALS: BP 126/75; TEMP 97.3; O2SAT 96
[2024-03-01 07:02] LABS: BASO % 0.3 % (0.0-1.0); EOS # 0.1 10^3/uL (0.0-0.5); EOS % 1.5 % (0.0-3.0); HEMATOCRIT 29.6 % (36.0-47.0); HEMOGLOBIN 9.7 g/dl (12.0-15.5); LYMPH # 1.6 10^3/uL (1.5-5.0); LYMPH % 22.3 % (24.0-44.0); MEAN CORPUSCULAR HEMOGLOBIN 28.3 pg (27.0-33.0); MEAN CORPUSCULAR HGB CONC 32.8 g/dl (32.0-36.5); MEAN CORPUSCULAR VOLUME 86.3 fl (80.0-96.0); MONO # 0.5 10^3/uL (0.0-0.8); MONO % 6.3 % (2.0-8.0); NEUTROPHILS # 4.9 10^3/uL (1.5-8.5); NEUTROPHILS % 67.9 % (36.0-66.0); PLATELET COUNT, AUTOMATED 337 10^3/uL (150-450); RED BLOOD COUNT 3.43 10^6/uL (4.00-5.40); WHITE BLOOD COUNT 7.1 10^3/uL (4.0-10.0)
[2024-03-01 07:36] LABS: ALBUMIN 2.2 G/DL (3.2-5.2); ALKALINE PHOSPHATASE 119 U/L (46-116); ALT/SGPT 23 U/L (7.0-40); AST/SGOT 15 U/L (<34); BILIRUBIN,TOTAL 0.3 MG/DL (0.3-1.2); BLOOD UREA NITROGEN 17 MG/DL (9-23); CALCIUM LEVEL 9.2 MG/DL (8.5-10.1); CARBON DIOXIDE LEVEL 32 MMOL/L (20-31); CHLORIDE LEVEL 101 MMOL/L (98-107); CREATININE FOR GFR 0.46 MG/DL (0.55-1.30); GLOMERULAR FILTRATION RATE > 60.0 (>58); GLUCOSE, FASTING 115 MG/DL (60-100); MAGNESIUM LEVEL 1.6 MG/DL (1.8-2.4); POTASSIUM SERUM 4.3 MMOL/L (3.5-5.1); SODIUM LEVEL 138 MMOL/L (136-145); TOTAL PROTEIN 5.6 G/DL (5.7-8.2)
[2024-03-01] MEDS: MAG SULF 1GM/100ML (MAG RUN) 1 GM in IV 1 EA IV ONE (09:12)
[2024-03-01 14:00] VITALS: BP 113/72; TEMP 97.7; O2SAT 97
[2024-03-01 19:56] VITALS: BP 112/72; TEMP 97.9; O2SAT 99
[2024-03-01 21:41] VITALS: TEMP 97.9; O2SAT 99
[2024-03-02 00:02] VITALS: BP 112/71
[2024-03-02 05:34] VITALS: BP 112/70; TEMP 97.9; O2SAT 98
[2024-03-02 06:44] LABS: BASO % 0.3 % (0.0-1.0); EOS # 0.1 10^3/uL (0.0-0.5); EOS % 1.2 % (0.0-3.0); HEMATOCRIT 29.5 % (36.0-47.0); HEMOGLOBIN 9.6 g/dl (12.0-15.5); LYMPH # 1.8 10^3/uL (1.5-5.0); LYMPH % 23.8 % (24.0-44.0); MEAN CORPUSCULAR HEMOGLOBIN 27.9 pg (27.0-33.0); MEAN CORPUSCULAR HGB CONC 32.5 g/dl (32.0-36.5); MEAN CORPUSCULAR VOLUME 85.8 fl (80.0-96.0); MONO # 0.5 10^3/uL (0.0-0.8); MONO % 6.9 % (2.0-8.0); NEUTROPHILS # 4.9 10^3/uL (1.5-8.5); PLATELET COUNT, AUTOMATED 320 10^3/uL (150-450); RED BLOOD COUNT 3.44 10^6/uL (4.00-5.40); WHITE BLOOD COUNT 7.4 10^3/uL (4.0-10.0)
[2024-03-02 07:25] LABS: ALBUMIN 2.2 G/DL (3.2-5.2); ALKALINE PHOSPHATASE 114 U/L (46-116); ALT/SGPT 23 U/L (7.0-40); AST/SGOT 14 U/L (<34); BILIRUBIN,TOTAL 0.3 MG/DL (0.3-1.2); BLOOD UREA NITROGEN 16 MG/DL (9-23); CALCIUM LEVEL 8.8 MG/DL (8.5-10.1); CARBON DIOXIDE LEVEL 31 MMOL/L (20-31); CHLORIDE LEVEL 102 MMOL/L (98-107); CREATININE FOR GFR 0.46 MG/DL (0.55-1.30); GLOMERULAR FILTRATION RATE > 60.0 (>58); GLUCOSE, FASTING 104 MG/DL (60-100); MAGNESIUM LEVEL 1.7 MG/DL (1.8-2.4); POTASSIUM SERUM 4.4 MMOL/L (3.5-5.1); SODIUM LEVEL 139 MMOL/L (136-145); TOTAL PROTEIN 5.2 G/DL (5.7-8.2)
[2024-03-02] MEDS: MAG SULF 1GM/100ML (MAG RUN) 1 GM in IV 1 EA IV ONE (09:19)
[2024-03-02 14:00] VITALS: BP 98/57; TEMP 97.7; O2SAT 96
[2024-03-02 20:00] VITALS: BP 104/61; TEMP 97; O2SAT 97
[2024-03-03 05:00] VITALS: BP 105/63; TEMP 98.1; O2SAT 96
[2024-03-03 07:46] LABS: ALBUMIN 2.5 G/DL (3.2-5.2); ALKALINE PHOSPHATASE 122 U/L (46-116); ALT/SGPT 25 U/L (7.0-40); AST/SGOT 17 U/L (<34); BILIRUBIN,TOTAL 0.3 MG/DL (0.3-1.2); BLOOD UREA NITROGEN 15 MG/DL (9-23); CALCIUM LEVEL 9.1 MG/DL (8.5-10.1); CARBON DIOXIDE LEVEL 34 MMOL/L (20-31); CHLORIDE LEVEL 99 MMOL/L (98-107); CREATININE FOR GFR 0.49 MG/DL (0.55-1.30); GLOMERULAR FILTRATION RATE > 60.0 (>58); GLUCOSE, FASTING 95 MG/DL (60-100); MAGNESIUM LEVEL 1.9 MG/DL (1.8-2.4); POTASSIUM SERUM 4.5 MMOL/L (3.5-5.1); SODIUM LEVEL 137 MMOL/L (136-145); TOTAL PROTEIN 5.7 G/DL (5.7-8.2)
[2024-03-03 14:00] VITALS: BP 107/62; TEMP 97.5; O2SAT 99
[2024-03-03 20:09] VITALS: BP 110/65; TEMP 98.2; O2SAT 96
[2024-03-04 05:28] VITALS: BP 111/66; TEMP 97.7; O2SAT 98
[2024-03-04 07:00] LABS: ALBUMIN 2.4 G/DL (3.2-5.2); BLOOD UREA NITROGEN 15 MG/DL (9-23); CALCIUM LEVEL 9.1 MG/DL (8.5-10.1); CARBON DIOXIDE LEVEL 32 MMOL/L (20-31); CHLORIDE LEVEL 100 MMOL/L (98-107); CREATININE FOR GFR 0.48 MG/DL (0.55-1.30); GLOMERULAR FILTRATION RATE > 60.0 (>58); GLUCOSE, FASTING 99 MG/DL (60-100); MAGNESIUM LEVEL 1.7 MG/DL (1.8-2.4); POTASSIUM SERUM 4.3 MMOL/L (3.5-5.1); SODIUM LEVEL 137 MMOL/L (136-145)
[2024-03-04 08:42] LABS: BASO % 0.4 % (0.0-1.0); EOS # 0.1 10^3/uL (0.0-0.5); EOS % 1.1 % (0.0-3.0); HEMATOCRIT 29.1 % (36.0-47.0); HEMOGLOBIN 9.3 g/dl (12.0-15.5); LYMPH # 1.7 10^3/uL (1.5-5.0); LYMPH % 21.6 % (24.0-44.0); MEAN CORPUSCULAR HEMOGLOBIN 27.8 pg (27.0-33.0); MEAN CORPUSCULAR VOLUME 86.9 fl (80.0-96.0); MONO # 0.6 10^3/uL (0.0-0.8); MONO % 6.9 % (2.0-8.0); NEUTROPHILS # 5.5 10^3/uL (1.5-8.5); NEUTROPHILS % 68.5 % (36.0-66.0); PLATELET COUNT, AUTOMATED 307 10^3/uL (150-450); RED BLOOD COUNT 3.35 10^6/uL (4.00-5.40); WHITE BLOOD COUNT 8.1 10^3/uL (4.0-10.0)
[2024-03-04] MEDS: MAG SULF 1GM/100ML (MAG RUN) 1 GM in IV 1 EA IV SCH (08:46)
[2024-03-04 14:00] VITALS: BP 112/64; TEMP 97.7; O2SAT 96
[2024-03-04] MEDS: METOPROLOL TART 25 MG TABLET PEG SCH (21:09)
[2024-03-04 21:30] VITALS: BP 109/61; TEMP 97.5; O2SAT 95
[2024-03-05 05:27] VITALS: BP 129/77; TEMP 97.3; O2SAT 96
[2024-03-05 06:00] VITALS: BP 110/68; TEMP 97.5; O2SAT 94
[2024-03-05 07:21] LABS: BLOOD UREA NITROGEN 16 MG/DL (9-23); CALCIUM LEVEL 9.1 MG/DL (8.5-10.1); CARBON DIOXIDE LEVEL 32 MMOL/L (20-31); CHLORIDE LEVEL 99 MMOL/L (98-107); CREATININE FOR GFR 0.49 MG/DL (0.55-1.30); GLOMERULAR FILTRATION RATE > 60.0 (>58); GLUCOSE, FASTING 98 MG/DL (60-100); MAGNESIUM LEVEL 1.8 MG/DL (1.8-2.4); POTASSIUM SERUM 4.4 MMOL/L (3.5-5.1); SODIUM LEVEL 137 MMOL/L (136-145)
[2024-03-05 14:00] VITALS: BP 112/68; TEMP 97.9; O2SAT 97
[2024-03-05 20:01] VITALS: BP 95/67; TEMP 98.1; O2SAT 96
[2024-03-06 05:09] VITALS: BP 97/66; TEMP 97.7; O2SAT 95
[2024-03-06 06:37] LABS: BASO % 0.4 % (0.0-1.0); EOS # 0.1 10^3/uL (0.0-0.5); EOS % 1.5 % (0.0-3.0); HEMATOCRIT 29.6 % (36.0-47.0); HEMOGLOBIN 9.4 g/dl (12.0-15.5); LYMPH # 1.6 10^3/uL (1.5-5.0); LYMPH % 19.3 % (24.0-44.0); MEAN CORPUSCULAR HEMOGLOBIN 28.1 pg (27.0-33.0); MEAN CORPUSCULAR HGB CONC 31.8 g/dl (32.0-36.5); MEAN CORPUSCULAR VOLUME 88.6 fl (80.0-96.0); MONO # 0.5 10^3/uL (0.0-0.8); MONO % 6.5 % (2.0-8.0); NEUTROPHILS # 5.7 10^3/uL (1.5-8.5); NEUTROPHILS % 70.7 % (36.0-66.0); PLATELET COUNT, AUTOMATED 280 10^3/uL (150-450); RED BLOOD COUNT 3.34 10^6/uL (4.00-5.40); WHITE BLOOD COUNT 8.1 10^3/uL (4.0-10.0)
[2024-03-06 07:06] LABS: BLOOD UREA NITROGEN 15 MG/DL (9-23); CALCIUM LEVEL 9.4 MG/DL (8.5-10.1); CARBON DIOXIDE LEVEL 32 MMOL/L (20-31); CHLORIDE LEVEL 99 MMOL/L (98-107); CREATININE FOR GFR 0.47 MG/DL (0.55-1.30); GLOMERULAR FILTRATION RATE > 60.0 (>58); GLUCOSE, FASTING 94 MG/DL (60-100); MAGNESIUM LEVEL 1.7 MG/DL (1.8-2.4); POTASSIUM SERUM 4.5 MMOL/L (3.5-5.1); SODIUM LEVEL 137 MMOL/L (136-145)
[2024-03-06] MEDS: MAG SULF 1GM/100ML (MAG RUN) 1 GM in IV 1 EA IV ONE (09:09)
[2024-03-06] MEDS ORDERED: SUCR1ORA PEG (11:29)
[2024-03-06] MEDS ORDERED: METO10TA2 PEG (12:59)
[2024-03-06 22:00] VITALS: BP 121/65; TEMP 98.1; O2SAT 95
[2024-03-07 06:44] VITALS: BP 120/67; TEMP 98.1; O2SAT 95
[2024-03-07 09:44] LABS: BLOOD UREA NITROGEN 15 MG/DL (9-23); CALCIUM LEVEL 9.2 MG/DL (8.5-10.1); CARBON DIOXIDE LEVEL 34 MMOL/L (20-31); CHLORIDE LEVEL 99 MMOL/L (98-107); CREATININE FOR GFR 0.51 MG/DL (0.55-1.30); GLOMERULAR FILTRATION RATE > 60.0 (>58); GLUCOSE, FASTING 111 MG/DL (60-100); MAGNESIUM LEVEL 1.7 MG/DL (1.8-2.4); POTASSIUM SERUM 4.6 MMOL/L (3.5-5.1); SODIUM LEVEL 139 MMOL/L (136-145)
[2024-03-07] MEDS ORDERED: METO1TAB87 PEG (10:22)
[2024-03-07] MEDS ORDERED: CYMB1CAP5 GT (10:22)
[2024-03-07] MEDS ORDERED: SELF1KIT MC (10:23)
[2024-03-07 14:00] VITALS: BP 97/58; TEMP 97.7; O2SAT 98
[2024-03-07 20:19] VITALS: BP 118/68; TEMP 98.1; O2SAT 97
[2024-03-08 06:00] VITALS: BP 117/68; TEMP 98.2; O2SAT 96
[2024-03-08 09:42] VITALS: BP 116/68
== END 2024-03-08 12:38 | disposition home or self-care (01) | DRG 243 ==
LOC: EDBD 13:29 → M ED 13:29 → M ED INP 17:51 → M MSPAV 21:27
PROVIDERS: ADMIT Student in an Organized Health Care Education/Training Program; ATTEND General Practice
PROC: 30233N1 Transfusion of Nonautologous Red Blood Cells into Peripheral Vein, Percutaneous Approach (ICD-10-PCS; principal; 2024-01-29)
PROC: 0DJ08ZZ Inspection of Upper Intestinal Tract, Via Natural or Artificial Opening Endoscopic (ICD-10-PCS; 2024-02-02)
PROC: 0DH64UZ Insertion of Feeding Device into Stomach, Percutaneous Endoscopic Approach (ICD-10-PCS; 2024-02-10)
PROC: B246ZZZ Ultrasonography of Right and Left Heart (ICD-10-PCS; 2024-02-12)
PROC: 30233J1 Transfusion of Nonautologous Serum Albumin into Peripheral Vein, Percutaneous Approach (ICD-10-PCS; 2024-02-13)
DX: K22.4 Dyskinesia of esophagus (principal); R53.2 Functional quadriplegia; R13.10 Dysphagia, unspecified; E46 Unspecified protein-calorie malnutrition; K31.84 Gastroparesis; E87.20 Acidosis, unspecified; E88.89 Other specified metabolic disorders; I50.32 Chronic diastolic (congestive) heart failure; D69.6 Thrombocytopenia, unspecified; D62 Acute posthemorrhagic anemia; E83.42 Hypomagnesemia; G62.89 Other specified polyneuropathies; E87.1 Hypo-osmolality and hyponatremia; K76.0 Fatty (change of) liver, not elsewhere classified; M79.7 Fibromyalgia; F32.A Depression, unspecified; F41.9 Anxiety disorder, unspecified; K21.9 Gastro-esophageal reflux disease without esophagitis; R32 Unspecified urinary incontinence; E66.9 Obesity, unspecified; I95.1 Orthostatic hypotension; G47.33 Obstructive sleep apnea (adult) (pediatric); Z68.33 Body mass index [BMI] 33.0-33.9, adult; E87.6 Hypokalemia; R30.0 Dysuria; Z90.49 Acquired absence of other specified parts of digestive tract; Z74.01 Bed confinement status; Z79.899 Other long term (current) drug therapy; K52.9 Noninfective gastroenteritis and colitis, unspecified; T82.838A Hemorrhage due to vascular prosthetic devices, implants and grafts, initial encounter

== ENCOUNTER → 2024-04-05 | Outpatient (REF) | payer OTHER ==
[~2024-04-05] MED LIST changes: +CYMB1CAP5 GT; +METO10TA2 PEG; +METO1TAB87 PEG; +METO1TAB87 PO; +ONDA-282 PO; -ONDA4TAB6 PO; +SELF1KIT MC; +SUCR1ORA PEG
[2024-04-05 18:38] LABS: BASO % 0.3 % (0.0-1.0); EOS # 0.1 10^3/uL (0.0-0.5); EOS % 1.1 % (0.0-3.0); HEMOGLOBIN 10.7 g/dl (12.0-15.5); LYMPH # 1.3 10^3/uL (1.5-5.0); MEAN CORPUSCULAR HEMOGLOBIN 29.6 pg (27.0-33.0); MEAN CORPUSCULAR HGB CONC 32.4 g/dl (32.0-36.5); MEAN CORPUSCULAR VOLUME 91.4 fl (80.0-96.0); MONO # 0.5 10^3/uL (0.0-0.8); MONO % 6.9 % (2.0-8.0); NEUTROPHILS # 5.6 10^3/uL (1.5-8.5); NEUTROPHILS % 74.2 % (36.0-66.0); PLATELET COUNT, AUTOMATED 292 10^3/uL (150-450); RED BLOOD COUNT 3.61 10^6/uL (4.00-5.40); WHITE BLOOD COUNT 7.5 10^3/uL (4.0-10.0)
[2024-04-05 19:14] LABS: ALBUMIN 2.8 G/DL (3.2-5.2); ALKALINE PHOSPHATASE 144 U/L (46-116); ALT/SGPT 28 U/L (7.0-40); AST/SGOT 14 U/L (<34); BILIRUBIN,TOTAL 0.3 MG/DL (0.3-1.2); BLOOD UREA NITROGEN 27 MG/DL (9-23); CALCIUM LEVEL 9.4 MG/DL (8.5-10.1); CARBON DIOXIDE LEVEL 31 MMOL/L (20-31); CHLORIDE LEVEL 101 MMOL/L (98-107); GLOMERULAR FILTRATION RATE > 60.0 (>58); GLUCOSE, FASTING 80 MG/DL (60-100); MAGNESIUM LEVEL 1.8 MG/DL (1.8-2.4); PHOSPHORUS LEVEL 5.1 MG/DL (2.5-4.9); POTASSIUM SERUM 4.3 MMOL/L (3.5-5.1); SODIUM LEVEL 139 MMOL/L (136-145); TOTAL PROTEIN 6.3 G/DL (5.7-8.2)
[2024-04-05 19:17] LABS: TOTAL 25(OH) VITAMIN D 39.4 NG/ML (20.0-100.0)
[2024-04-05 19:45] LABS: PREALBUMIN 30.2 MG/DL (10.0-40.0)
== END ==
LOC: M LAB REF 17:17
PROVIDERS: ATTEND Pediatrics
DX: E55.9 Vitamin D deficiency, unspecified (principal); D63.8 Anemia in other chronic diseases classified elsewhere; Z76.89 Persons encountering health services in other specified circumstances; E88.09 Other disorders of plasma-protein metabolism, not elsewhere classified

== ENCOUNTER → 2024-04-07 | Outpatient (REF) | payer OTHER ==
[2024-04-07 18:02] LABS: APPEARANCE, URINE CLEAR (CLEAR); BACTERIA, URINE AUTO NEGATIVE (NEGATIVE); BILIRUBIN, URINE AUTO NEGATIVE (NEGATIVE); BLOOD, URINE BLOOD NEGATIVE (NEGATIVE); COLOR, URINE YELLOW (YELLOW); GLUCOSE, URINE (UA) AUTO NEGATIVE (NEGATIVE); KETONE, URINE AUTO NEGATIVE (NEGATIVE); LEUKOCYTE ESTERASE, URINE AUTO NEGATIVE (NEGATIVE); NITRITE, URINE AUTO NEGATIVE (NEGATIVE); PROTEIN, URINE AUTO NEGATIVE (NEGATIVE); RBC, URINE AUTO 1 /HPF (0-3); SPECIFIC GRAVITY URINE AUTO 1.009 (1.002-1.035); SQUAMOUS EPITHELIAL CELL UR AU 2 /HPF (0-6); UROBILINOGEN, URINE AUTO 0.2 mg/dL (0.0-2.0); WBC, URINE AUTO 0 /HPF (0-3)
== END ==
LOC: M LAB REF 16:57 → M SHH 16:57
PROVIDERS: ATTEND Pediatrics
DX: R30.0 Dysuria (principal)

== ENCOUNTER → 2024-06-09 | Outpatient (REF) | payer OTHER ==
[2024-06-09 13:15] LABS: AMORPHOUS SEDIMENT SMALL (NEGATIVE); APPEARANCE, URINE TURBID (CLEAR); BACTERIA, URINE AUTO 1+ (NEGATIVE); BILIRUBIN, URINE AUTO NEGATIVE (NEGATIVE); BLOOD, URINE BLOOD NEGATIVE (NEGATIVE); COLOR, URINE AMBER (YELLOW); GLUCOSE, URINE (UA) AUTO NEGATIVE (NEGATIVE); KETONE, URINE AUTO NEGATIVE (NEGATIVE); LEUKOCYTE ESTERASE, URINE AUTO TRACE (NEGATIVE); MUCUS, URINE SMALL (NEGATIVE); NITRITE, URINE AUTO POSITIVE (NEGATIVE); PROTEIN, URINE AUTO NEGATIVE (NEGATIVE); RBC, URINE AUTO 3 /HPF (0-3); SPECIFIC GRAVITY URINE AUTO 1.017 (1.002-1.035); SQUAMOUS EPITHELIAL CELL UR AU 9 /HPF (0-6); UROBILINOGEN, URINE AUTO 0.2 mg/dL (0.0-2.0); WBC, URINE AUTO 6 /HPF (0-3)
== END ==
LOC: M SHH 12:27
PROVIDERS: ATTEND Nurse Practitioner Family
DX: R30.0 Dysuria (principal)

== ENCOUNTER 2025-08-28 18:29 | Inpatient (IN) | payer OTHER ==
[~2025-08-28] VITALS: Ht 154.9 cm; Wt 89.0 kg
[~2025-08-28 18:29] MED LIST changes: -AMBI5TAB PO; +GABA-1172; -GABA-282; +ZOLP-532 PO
[2025-08-28 19:14] LABS: BASO # 0.0 10^3/uL (0.0-0.2); BASO % 0.2 % (0.0-1.0); EOS # 0.0 10^3/uL (0.0-0.5); EOS % 0.1 % (0.0-3.0); LYMPH # 2.0 10^3/uL (1.5-5.0); LYMPH % 19.9 % (24.0-44.0); MONO # 0.6 10^3/uL (0.0-0.8); MONO % 5.9 % (2.0-8.0); NEUTROPHILS # 7.5 10^3/uL (1.5-8.5); NEUTROPHILS % 73.3 % (36.0-66.0); PLATELET COUNT, AUTOMATED 372 10^3/uL (150-450)
[2025-08-28 19:38] LABS: CK-MB VALUE MASS 2.3 NG/ML (<3.6)
[2025-08-28 19:39] LABS: CALCIUM LEVEL 7.6 MG/DL (8.5-10.1); CARBON DIOXIDE LEVEL 31 MMOL/L (20-31); CHLORIDE LEVEL 90 MMOL/L (98-107); CREATININE FOR GFR 0.59 MG/DL (0.55-1.30); GLOMERULAR FILTRATION RATE > 90.0 (>58); POTASSIUM SERUM 3.0 MMOL/L (3.5-5.1); SODIUM LEVEL 138 MMOL/L (136-145)
[2025-08-28 19:41] LABS: CPK CREATINE PHOSPHOKINASE 73 U/L (34-145); MB/CK RELATIVE INDEX 3.15 (< OR =4)
[2025-08-28] MEDS: FAMOTIDINE IV BAG 20 MG in IV 1 EA IV ONE (20:04)
[2025-08-28] MEDS ORDERED: ISOVUE-370 76% 100 ML VIAL As Ordered ONE (20:05)
[2025-08-28] MEDS: PANTOPRAZOLE 40MG VIAL IV ONE (20:06)
[2025-08-28] MEDS: KCL 10MEQ/100ML SWI (KRUN) 10 MEQ in IV 1 EA IV ONE (20:10)
[2025-08-28 20:33] LABS: VENOUS BASE EXCESS 8.0 (-2.0-2.0); VENOUS HCO3 32.3 MMOL/L (23.0-27.0); VENOUS O2 SATURATION 85.8 % (60.0-80.0); VENOUS PARTIAL PRESSURE CO2 44.0 mmHg (38.0-50.0); VENOUS PARTIAL PRESSURE O2 50.1 mmHg (30.0-50.0); VENOUS PH 7.484 UNITS (7.330-7.430); VENOUS STANDARD HCO3 31.5 MMOL/L; VENOUS TOTAL CO2 33.7 MMOL/L (24.0-28.0)
[2025-08-28 21:07] LABS: ALT/SGPT 18.0 U/L (7.0-40); AST/SGOT 42.0 U/L (<34)
[2025-08-28 21:25] LABS: KETONE, URINE AUTO RFX 1+ mg/dL (NEGATIVE); LEUKOCYTE ESTERASE UR AUTO RFX 2+ (NEGATIVE); NITRITE, URINE AUTO RFX NEGATIVE (NEGATIVE); RBC, URINE AUTO RFX 9 /HPF (0-3); SQUAM EPITHELIAL CELL UR AURFX 12 /HPF (0-6); WBC, URINE AUTO RFX 16 /HPF (0-3)
[2025-08-28 21:56] LABS: CK-MB VALUE MASS 2.1 NG/ML (<3.6)
[2025-08-28 21:57] LABS: CPK CREATINE PHOSPHOKINASE 59.0 U/L (34-145); MB/CK RELATIVE INDEX 3.55 (< OR =4)
[2025-08-28] MEDS: MAG SULF 1GM/100ML (MAG RUN) 1 GM in IV 1 EA IV ONE (22:44)
[2025-08-28] MEDS: POTASSIUM CHLORIDE 10MEQ SR TABLET PO ONE (22:46)
[2025-08-28] MEDS: CEFEPIME HCL 1 GM in DEXTROSE 5% (D5W) ADV/MINI-BAG 50 ML IV ONE (22:49)
[2025-08-28] MEDS ORDERED: OMEP-173 PO (22:51)
[2025-08-28] MEDS ORDERED: ACET-1349 PO (22:51)
[2025-08-28] MEDS ORDERED: HOME MED LIST COMPLETE! XX SCH (22:55)
[2025-08-29] MEDS ORDERED: KCL 20MEQ in NS 1000ML 1,000 ML IV SCH (01:15)
[2025-08-29] MEDS: THIAMINE 200MG 2ML VIAL IV SCH (01:39)
[2025-08-29] MEDS: KCL 20MEQ IN D5/0.45NS 1000ML 1,000 ML IV SCH (02:39)
[2025-08-29 03:50] VITALS: BP 114/60; TEMP 97.8; O2SAT 95
[2025-08-29] MEDS: ACETAMINOPHEN 325 MG TAB PO PRN (04:36)
[2025-08-29 06:37] LABS: PLATELET COUNT, AUTOMATED 248 10^3/uL (150-450)
[2025-08-29 07:19] LABS: ALT/SGPT 19 U/L (7.0-40); AST/SGOT 40 U/L (<34); CALCIUM LEVEL 6.9 MG/DL (8.5-10.1); CARBON DIOXIDE LEVEL 34 MMOL/L (20-31); CHLORIDE LEVEL 94 MMOL/L (98-107); CREATININE FOR GFR 0.57 MG/DL (0.55-1.30); GLOMERULAR FILTRATION RATE > 90.0 (>58); MAGNESIUM LEVEL 2.0 MG/DL (1.8-2.4); POTASSIUM SERUM 2.4 MMOL/L (3.5-5.1); SODIUM LEVEL 136 MMOL/L (136-145)
[2025-08-29] MEDS: CEFEPIME HCL 1 GM in DEXTROSE 5% (D5W) ADV/MINI-BAG 50 ML IV SCH (08:31)
[2025-08-29] MEDS: PANTOPRAZOLE 40MG VIAL IV SCH (08:31)
[2025-08-29] MEDS: KCL 10MEQ/100ML SWI (KRUN) 10 MEQ in IV 1 EA IV SCH (08:31)
[2025-08-29] MEDS: SODIUM PHOSPHATE INJ 20 MMOL in D5W 250 ML IV ONE (10:26)
[2025-08-29 11:41] VITALS: BP 115/74; TEMP 97.4; O2SAT 98
[2025-08-29] MEDS: NYSTATIN 100,000 UNITS/GM TOPICAL PWD 15 GM TOP SCH (21:00)
[2025-08-29 21:18] VITALS: BP 107/60; TEMP 97.6; O2SAT 98
[2025-08-30 04:27] VITALS: BP 119/58; TEMP 97.3; O2SAT 97
[2025-08-30 06:48] LABS: BASO # 0.0 10^3/uL (0.0-0.2); BASO % 0.5 % (0.0-1.0); EOS # 0.1 10^3/uL (0.0-0.5); EOS % 1.1 % (0.0-3.0); LYMPH # 2.0 10^3/uL (1.5-5.0); LYMPH % 32.8 % (24.0-44.0); MONO # 0.5 10^3/uL (0.0-0.8); MONO % 8.4 % (2.0-8.0); NEUTROPHILS # 3.5 10^3/uL (1.5-8.5); NEUTROPHILS % 56.6 % (36.0-66.0); PLATELET COUNT, AUTOMATED 237 10^3/uL (150-450)
[2025-08-30 07:33] LABS: CALCIUM LEVEL 7.6 MG/DL (8.5-10.1); CARBON DIOXIDE LEVEL 31 MMOL/L (20-31); CHLORIDE LEVEL 101 MMOL/L (98-107); CREATININE FOR GFR 0.63 MG/DL (0.55-1.30); GLOMERULAR FILTRATION RATE > 90.0 (>58); MAGNESIUM LEVEL 1.8 MG/DL (1.8-2.4); PHOSPHORUS LEVEL 2.6 MG/DL (2.5-4.9); POTASSIUM SERUM 2.8 MMOL/L (3.5-5.1); SODIUM LEVEL 141 MMOL/L (136-145)
[2025-08-30] MEDS: POTASSIUM CHLORIDE 10% LIQ 20MEQ/15ML UDC PO ONE (08:12)
[2025-08-30] MEDS: KCL 40MEQ IN D5/0.45NS 1000ML 1,000 ML IV SCH (08:12)
[2025-08-30] MEDS: ENOXAPARIN 40 MG/0.4 ML SYRINGE (J1650 PER 10MG) SC SCH (08:13)
[2025-08-30 12:00] VITALS: BP 110/60; TEMP 97.6; O2SAT 99
[2025-08-30] MEDS: MORPHINE 4 MG/ML 1 ML VIAL IV ONE (14:03)
[2025-08-30 20:42] VITALS: BP 138/86; TEMP 97.5; O2SAT 97
[2025-08-30] MEDS: METOPROLOL SUCC. 25 MG *XL* TAB PO SCH (21:37)
[2025-08-31 03:54] VITALS: BP 124/58; TEMP 97.5; O2SAT 97
[2025-08-31 06:53] LABS: CALCIUM LEVEL 7.6 MG/DL (8.5-10.1); CARBON DIOXIDE LEVEL 30 MMOL/L (20-31); CHLORIDE LEVEL 104 MMOL/L (98-107); CREATININE FOR GFR 0.58 MG/DL (0.55-1.30); GLOMERULAR FILTRATION RATE > 90.0 (>58); MAGNESIUM LEVEL 1.6 MG/DL (1.8-2.4); PHOSPHORUS LEVEL 1.7 MG/DL (2.5-4.9); POTASSIUM SERUM 3.3 MMOL/L (3.5-5.1); SODIUM LEVEL 142 MMOL/L (136-145)
[2025-08-31 12:21] VITALS: BP 127/62; TEMP 97.9; O2SAT 97
[2025-08-31] MEDS: MAG SULF 1GM/100ML (MAG RUN) 1 GM in IV 1 EA IV ONE (12:39)
[2025-08-31] MEDS: KCL 10MEQ/100ML SWI (KRUN) 10 MEQ in IV 1 EA IV SCH (14:03)
[2025-08-31 20:44] VITALS: BP 122/62; TEMP 97; O2SAT 95
[2025-09-01 04:58] VITALS: BP 118/57; TEMP 97.7; O2SAT 98
[2025-09-01 07:09] LABS: PLATELET COUNT, AUTOMATED 208 10^3/uL (150-450)
[2025-09-01 07:34] LABS: CALCIUM LEVEL 7.2 MG/DL (8.5-10.1); CARBON DIOXIDE LEVEL 32 MMOL/L (20-31); CHLORIDE LEVEL 104 MMOL/L (98-107); CREATININE FOR GFR 0.49 MG/DL (0.55-1.30); GLOMERULAR FILTRATION RATE > 90.0 (>58); MAGNESIUM LEVEL 1.7 MG/DL (1.8-2.4); PHOSPHORUS LEVEL 2.0 MG/DL (2.5-4.9); POTASSIUM SERUM 3.4 MMOL/L (3.5-5.1); SODIUM LEVEL 141 MMOL/L (136-145)
[2025-09-01 12:00] VITALS: BP 104/57; TEMP 97.6; O2SAT 98
[2025-09-01] MEDS: MAG SULF 1GM/100ML (MAG RUN) 1 GM in IV 1 EA IV SCH (13:14)
[2025-09-01] MEDS: SODIUM PHOSPHATE INJ 20 MMOL in D5W 250 ML IV ONE (15:50)
[2025-09-01 20:14] VITALS: BP 111/64; TEMP 97.5; O2SAT 97
[2025-09-01] MEDS: AMOXICILLIN 875 MG TAB PO SCH (22:43)
[2025-09-01] MEDS: MAGNESIUM OXIDE 400 MG TAB PO SCH (22:43)
[2025-09-01] MEDS: PANTOPRAZOLE 40MG TAB PO SCH (22:43)
[2025-09-01] MEDS: POTASSIUM CHLORIDE 10MEQ SR TABLET PO SCH (22:44)
[2025-09-02 04:53] VITALS: BP 111/63; TEMP 97.3; O2SAT 99
[2025-09-02 06:00] LABS: PLATELET COUNT, AUTOMATED 238 10^3/uL (150-450)
[2025-09-02 06:28] LABS: CALCIUM LEVEL 7.2 MG/DL (8.5-10.1); CARBON DIOXIDE LEVEL 30 MMOL/L (20-31); CHLORIDE LEVEL 105 MMOL/L (98-107); CREATININE FOR GFR 0.53 MG/DL (0.55-1.30); GLOMERULAR FILTRATION RATE > 90.0 (>58); MAGNESIUM LEVEL 2.1 MG/DL (1.8-2.4); PHOSPHORUS LEVEL 3.4 MG/DL (2.5-4.9); POTASSIUM SERUM 3.8 MMOL/L (3.5-5.1); SODIUM LEVEL 143 MMOL/L (136-145)
[2025-09-02 12:00] VITALS: BP 120/61; TEMP 97; O2SAT 98
[2025-09-02 21:30] VITALS: BP 126/56; TEMP 97.6; O2SAT 97
[2025-09-03 04:26] VITALS: BP 105/58; TEMP 97.3; O2SAT 99
[2025-09-03 06:46] LABS: PLATELET COUNT, AUTOMATED 241 10^3/uL (150-450)
[2025-09-03 07:25] LABS: CALCIUM LEVEL 7.7 MG/DL (8.5-10.1); CARBON DIOXIDE LEVEL 31 MMOL/L (20-31); CHLORIDE LEVEL 106 MMOL/L (98-107); CREATININE FOR GFR 0.59 MG/DL (0.55-1.30); GLOMERULAR FILTRATION RATE > 90.0 (>58); MAGNESIUM LEVEL 2.0 MG/DL (1.8-2.4); PHOSPHORUS LEVEL 3.1 MG/DL (2.5-4.9); POTASSIUM SERUM 5.0 MMOL/L (3.5-5.1); SODIUM LEVEL 143 MMOL/L (136-145)
[2025-09-03 12:00] VITALS: BP 131/86; TEMP 97.5; O2SAT 98
[2025-09-03 12:03] VITALS: BP 118/66; TEMP 97.8; O2SAT 96
[2025-09-03 20:00] VITALS: BP 126/78; TEMP 97; O2SAT 94
[2025-09-04 04:00] VITALS: BP 106/51; TEMP 98.2; O2SAT 98
[2025-09-04 06:51] LABS: CALCIUM LEVEL 7.7 MG/DL (8.5-10.1); CARBON DIOXIDE LEVEL 29 MMOL/L (20-31); CHLORIDE LEVEL 108 MMOL/L (98-107); CREATININE FOR GFR 0.57 MG/DL (0.55-1.30); GLOMERULAR FILTRATION RATE > 90.0 (>58); POTASSIUM SERUM 4.6 MMOL/L (3.5-5.1); SODIUM LEVEL 144 MMOL/L (136-145)
[2025-09-04] MEDS: MAGNESIUM OXIDE 400 MG TAB PO SCH (09:44)
[2025-09-04] MEDS ORDERED: NYST10006 TOP (11:50)
[2025-09-04] MEDS ORDERED: RISATAB3 PO (11:50)
[2025-09-04] MEDS ORDERED: AMOX875T PO (11:50)
[2025-09-04] MEDS ORDERED: MAGN400T33 PO (11:50)
[2025-09-04 21:42] VITALS: BP 148/65
[2025-09-04 22:00] VITALS: BP 148/65; TEMP 97.8; O2SAT 94
[2025-09-05 04:00] VITALS: BP 135/63; TEMP 97.2; O2SAT 96
[2025-09-05] MEDS: traMADol 50 MG TAB PO ONE (15:49)
== END 2025-09-05 16:42 | disposition home health service (06) | DRG 249 ==
LOC: EDBD 18:29 → M ED 18:29 → M ED INP 18:30 → OBSVTOIN 08-29 01:47 → M MSPAV 08-29 03:31
PROVIDERS: ADMIT Student in an Organized Health Care Education/Training Program; ATTEND Internal Medicine
DX: A08.2 Adenoviral enteritis (principal); E87.3 Alkalosis; R53.2 Functional quadriplegia; E88.89 Other specified metabolic disorders; E46 Unspecified protein-calorie malnutrition; I50.32 Chronic diastolic (congestive) heart failure; G62.9 Polyneuropathy, unspecified; G72.9 Myopathy, unspecified; E83.42 Hypomagnesemia; E88.09 Other disorders of plasma-protein metabolism, not elsewhere classified; E83.51 Hypocalcemia; K76.0 Fatty (change of) liver, not elsewhere classified; E66.9 Obesity, unspecified; K21.9 Gastro-esophageal reflux disease without esophagitis; F41.9 Anxiety disorder, unspecified; F32.A Depression, unspecified; E87.6 Hypokalemia; N39.0 Urinary tract infection, site not specified; M79.7 Fibromyalgia; D64.9 Anemia, unspecified; G47.33 Obstructive sleep apnea (adult) (pediatric); Z74.01 Bed confinement status; Z90.49 Acquired absence of other specified parts of digestive tract; R00.0 Tachycardia, unspecified